=== PATIENT | female | born 1965 | race Caucasian/White ===

== ENCOUNTER 2021-01-11 15:42 | Inpatient (IN) | payer OTHER ==
[~2021-01-11] VITALS: Ht 162.6 cm; Wt 80.4 kg
--- OUTSIDE RECORDS SUMMARY | 2021-01-11 15:44 | XMS ---
PreManage Notification: DUSTIN BISHOP [employer] Events No recent Security Events currently on file CRITERIA MET - [facility] CARE PROVIDERS There are no care providers on record at this time. Wayne has no Care Guidelines for this patient. Mary VISIT COUNT (12 MO.) 1 HUSEYIN Ochoa TOTAL 1 NOTE: Visits indicate total known visits. ED/C VISIT TRACKING (12 MO.) 01/11/2021 15:43 HUSEYIN Mathews OR TYPE: Emergency COMPLAINT: - SOB,LOWER BACK PAIN INPATIENT VISIT TRACKING (12 MO.) No inpatient visits to display in this time frame [id number]
[2021-01-11] MEDS ORDERED: LISINOPRIL2.5 MG PO (16:01)
[2021-01-11] MEDS ORDERED: CYCLOBENZAPRINE10 MG PO (16:01)
[2021-01-11] MEDS ORDERED: HYDROCODON-ACE1 EA10 PO (16:02)
--- NOTE | 2021-01-11 20:14 | NUR ---
PT RATES PAIN 10/10. HOLDING ABDOMEN, GRIMACING, TEARFUL. 1 MG OF PRN IV DILAUDID GIVEN AT THIS TIME (SEE EMAR).
--- NOTE | 2021-01-11 20:20 | NUR ---
PATIENT RECEIVED INTO CCU. CARE ASSUMED BY THIS SN. PATIENT TRANSFERED ONTO CCU BED. PATIENT COMPLAINS OF 10/10 PAIN DURING TRANSFER. PATIENT HOOKED UP TO THE SERVOMECHANISM DESIGNER. HR REMAINS IN THE 110'S. OXYGEN SATURATION 96% ON 2 LITERS PER MINUTE. RESPIRATIONS 26, WITH SOME WORK OF BREATHING. PATIENT COMPLAINS OF ABDOMINAL PAIN WITH TOUCH. PATIENT GIVEN DILAUDID FOR PAIN. BLOOD PRESSURES HAVE BEEN SOFT AT 85/56. PATIENT REPORTS SOME RELIEF OF PAIN AFTER DILAUDID. SN WITH PATIENT AT THIS TIME FOR FURTHER ASSESSMENT.
--- NOTE | 2021-01-11 20:45 | NUR ---
DR MCCALLUM IN TO SEE PATIENT TO DISCUSS PLAN. PATIENT COMPLAINS OF 10/10 ABDOMINAL PAIN. PAIN MANAGEMENT DISCUSSED AND ALL QUESTIONS ANSWERED BY .
--- NOTE | 2021-01-11 21:15 | NUR ---
ATKINSON CATHETER INSERTED. 750 MLS OF CONCENTRATED URINE FOR IMMEDIATE RETURN. WELL TOLERATED BY PATIENT.
--- NOTE | 2021-01-11 21:30 | NUR ---
PT COMPLAINS PAIN LEVEL HAS INCREASED BACK TO 8/10. PAIN INCREASES WITH MOVEMENT, OR COUGHING. PRN PAIN MEDICATION GIVEN ( SEE EMAR). WILL CONTINUE TO CLOSELY MONITOR.
--- NOTE | 2021-01-11 22:00 | NUR ---
PATIENT HAS COMPLAINTS OF 9/10 PAIN. IV DILAUDID AND TORODOL GIVEN. ABX HUNG. PATIENT HR IN THE HIGH 90'S. RESPIRATIONS ARE EVEN AND UNLABORED, OXYGEN SATURATION 97% ON 2 LITERS VIA NASAL CANNULA. BLOOD PRESSURES REMAIN SOFT AT 86/57 BUT ARE NOT TRENDING DOWNWARD. PATIENT HAS NO OTHER COMPLAINTS AT THIS TIME. DAUGHTER AT BEDSIDE, CALL LIGHT IN PLACE.
--- NOTE | 2021-01-11 22:38 | NUR ---
Dr Pitt updated on pts condition. Discussed low blood pressures and improved pain control. No new orders at this time.
--- NOTE | 2021-01-11 23:24 | NUR ---
PATIENT HAS COMPLAITNS OF 9/10 PAIN. DILAUDID GIVEN. HR REMAINS IN THE 90'S. RESPIRATIONS ARE 13 AND EVEN. PATIENT HAS DECREASE IN WORK OF BREATHING. B/P 86/55. PATIENT HAS NO OTHER COMPLAINTS AT THIS TIME. DAUGHTER IN ROOM. CALL LIGHT IN PLACE.
--- NOTE | 2021-01-12 00:22 | NUR ---
DR COWART UPDATED ON PATIENTS BLOOD PRESSURES DECREASING, AND MAP LESS THAN 65. ORDERS RECIEVED (SEE EMAR). WILL CONTINUE TO MONITOR.
--- NOTE | 2021-01-12 00:31 | NUR ---
IN TO ASSESS PATIENTS BLOOD PRESSURE. MANUAL BP 78/48. MD NOTIFIED. 1L BOLUS STARTED. PATIENT STATES THAT PAIN IS BETTER AND SHE DOES NOT WANT PAIN MEDIACITON AT THIS TIME. HR IN THE 80'S. OXYGEN SATURATION 97% ON 2 LITERS. RESPIRATIONS 10-12. PATIENT HAS NO OTHER COMPLAINTS AT THIS TIME. DAUGHTER IN ROOM, CALL LIGHT IN PLACE.
--- NOTE | 2021-01-12 02:15 | NUR ---
IN TO CHECK ON PATIENT AND REPOSITION BLOOD PRESSURE CUFF. PATIENT DIAPHORETIC, GOWN AND BLANKETS CHANGED. HR REMAINS IN THE 80'S. RESPIRATIONS 12, OXYGEN SATURATION 96% ON 2 LITERS VIA NASAL CANNULA. B/P 96/63. PATIENT REPORTS PAIN AT 8.5/10. PATIENT REMAINS AFEBRILE. PATIENT HAS NO OTHER COMPLAINTS AT THIS TIME. DAUGHTER IN ROOM, CALL LIGHT IN PLACE.
--- NOTE | 2021-01-12 02:25 | NUR ---
PT HEART RATE UP TO 100 BPM, RESPIRATIONS 20-25 WITH REPOSITIONING IN THE BED. ABDOMINAL PAIN INCREASED WITH EXERTION AND TURNING WELL. PATIENT NOW RESTING COMFORTABLY. HEART RATE BACK DOWN AT 80 BPM, RR=13. WILL CONTINUE TO CLOSELY MONITOR.
--- NOTE | 2021-01-12 04:06 | NUR ---
PT BLOOD PRESSURE REMAINS IN THE 80S SYSTOLICALLY. MAP CONSISTENTLY BETWEEN 60-65. PATIENT REPORTS PAIN LEVELS ARE CONTROLLED. HEART RATE IN THE 80S AT REST. RR=16, BREATHING EVEN AND UNLABORED. DR COWART UPDATED. ORDERS RECEIVED.
--- NOTE | 2021-01-12 04:15 | NUR ---
PATIENT CALLED FOR ASSISTANCE TO THE COMMODE. PATIENT TRANSFERED WITH STAND BY ASSIST. WITH TRANSFER PATIENTS HR ELEVATED TO THE HIGH 90'S AND RESPIRTIONS INCREASED TO 22. PATIENT HAD 200ML LIQUID BM. PATIENT TRANSFERED BACK TO BED, DRAW SHEET AND PILLOW CASE CHANGED DUE TO MOISTURE. PATIENT REPOSITIONED IN BED. COMPLAINTS OF 10/10 PAIN AFTER TRANSFERING. DILAUDID GIVEN. HR IN THE 80'S WITH REST AND RESPIRATIONS AT 16. PATIENT OXYGEN SATURATION 92% ON ROOM AIR. PATIENT HAS NO OTHER COMPLAINTS AT THIS TIME. DAUGHTER IN ROOM, CALL LIGHT IN PLACE.
--- NOTE | 2021-01-12 05:51 | NUR ---
IN TO CHECK ON PATIENT. PATIENT REPORTS 10/10 ABDOMINAL PAIN. PAIN MEDICATION GIVEN. HR REMAINS IN THE 80'S. OXYGEN SATURATION 100% ON ROOM AIR. RESPIRATIONS 16. BP 88/61. PATIENT HAS NO OTHER COMPLAINTS AT THIS TIME.
--- NOTE | 2021-01-12 06:35 | NUR ---
IN TO ASSESS PATIENT. PATIENT STATES PAIN MEDICATION HELPED. PATIENT STATES THAT SHE HAS INCREASED PAIN IN HER LLQ. PATIENT TRANSFERED TO THE COMMODE. HR ELEVATED TO HIGH 90'S AND RESPIRATIONS ELEVATED TO 22. PATIENT HAD LIQUID BM. PATIENT TRANSFERED BACK TO THE BED AND REPOSITIONED WITH MINIMAL ASSISTANCE. PATIENT HAS NO OTHER COMPLAINTS AT THIS TIME. HR IN THE 80'S, RESPIRATIONS 16. CALL LIGHT IN PLACE.
--- NOTE | 2021-01-12 07:27 | NUR ---
DR. COWART IN ROOM TO SEE PATIENT. REPORT REC'D FROM CHECKER [employer]. PT STILL RATING HER PAIN 8.5/10.
--- NOTE | 2021-01-12 07:30 | NUR ---
Attempted to see Tia, she is very painful. Will return later.
--- NOTE | 2021-01-12 07:39 | NUR ---
PATIENT ASLEEP IN BED AT THIS TIME. WHITE BOARD UPDATED. CALL LIGHT WITHIN REACH NO FUTHER NEEDS AT THIS TIME.
--- NOTE | 2021-01-12 07:45 | NUR ---
REPORT REC'D FROM AUTO MECHANIC SUPERVISOR. PT WRITHING IN PAIN, RATING IT A 9/10 AND SEVERE. PATIENT HAS BEEN GETTING IV DILUADID, IV TYLENOL, AND IV TORADOL FOR PAIN CONTROL. PT'S ABDOMEN REMAINS SEVERELY DISTENDED, WITH VERY RARE BOWEL TONES. PT STATES THIS PAIN STARTED SUDDENLY IN THE MIDDLE OF THE NIGHT TUESDAY NIGHT, AND HAS BEEN PERSISTING SINCE. PT HAS HAD NO FURTHER VOMITING, BUT IS HAVING DIARRHEA. IVF CONTINUE AT 150 ML/HR. DR. COWART ENTERS AND NOW IN ROOM EVALUATING PATIENT. ATKINSON DRAINING CLEAR YELLOW URINE. PAIN MEDICAITON TO BE GIVEN.
--- NOTE | 2021-01-12 08:20 | NUR ---
KUB BEING TAKEN ON PATIENT.
--- NOTE | 2021-01-12 09:34 | NUR ---
DR. MCCALLUM IN ROOM TO SEE PATIENT. PATIENT STILL HAVING SEVERE ABDOMINAL PAIN. LAB RESULTS PENDING AND ABDOMINAL XRAY PENDING. PT'S DAUGHTER REMAINS IN ROOM WITH PATIENT. WILL CONTINUE TO MONITOR.
--- NOTE | 2021-01-12 10:12 | NUR ---
PATIENT SLEEPING AT THIS TIME AND APPEARS COMFORTABLE. LAST BP 89/72. HR IN THE 80s. PATIENT'S DAUGHTER REMAINS IN ROOM.
--- NOTE | 2021-01-12 10:45 | NUR ---
IN PATIENT'S ROOM TO CHECK ON HER PAIN. PT STATES SHE WAS GETTING SOME RELIEF FROM THE PAIN AND WAS EVEN DOWN TO A 3/10, BUT NOW PAIN IS STARTING UP AGAIN. PT RATES PAIN UP AT A 9/10. IV DILAUDID GIVEN. PAIN BRINGING PATIENT TO TEARS AND AGAIN WRITHING IN BED. ATTEMPTING TO COMFORT PATIENT AND HELP HER BREATH THROUGH THIS PAIN. CONTINUE TO MONITOR CLOSELY.
--- NOTE | 2021-01-12 13:10 | NUR ---
Spoke with Tia. She lives with her daughter Michael in a 2 story home. Uses the lower floor for laundry only. 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 Does not use any DME. Denies needs for DC. No financial issues. Cont with significant abd pain. Plan is for dc to home with daughter when cleared medically.
--- NOTE | 2021-01-12 14:18 | NUR ---
MELANIA BERGERON REQUESTED I NOT VISIT AT [facility] TIME. PT IS IN QUITE A BIT OF PAIN AT THE MOMENT. WILL CONTINUE TO FOLLOW
--- NOTE | 2021-01-12 15:36 | NUR ---
PATIENT GIVEN PRN DILAUDID, AND TORADOL FOR 9/10 PAIN. PATIENT ALSO STARTED ON HER MEROPENEM, WELL GIVEN HER SCHEDULED SOLUCORTEF. PT STATES THAT SHE FEELS THE PAIN MEDICATION IS STARTING TO CONTROL HER PAIN A LITTLE BETTER, AND HER PAIN IS BECOMING LOWER EACH TIME. PT'S DAUGHTER REMAINS IN ROOM. WHEN PATIENT HAS HER PAIN ATTACKS, IT REALLY ALMOST SEEMS TO TAKE HER BREATH AWAY. COACHED PATIENT THROUGH THESE DIFFICULT BREATHING TIMES. URINE OUTPUT HAS REMAINED ADEQUATE. SP02 REMAINS 95% OR GREATER ON ROOM AIR. PT USING IS. IVF CONTINUE AT 150 ML/HR. CONTINUE TO MONITOR.
--- NOTE | 2021-01-12 15:43 | NUR ---
PATIENT PM CARE DONE. PATIENT FACE WASHED. REFUSED SHOWER FOR THE DAY. CALL LIGHT WITHIN REACH NO FUTHER NEEDS AT THIS TIME.
--- NOTE | 2021-01-12 17:51 | NUR ---
PATIENT UP TO BSC AGAIN TO HAVE ANOTHER BM. PT MOVING A LITTLE BETTER THIS EVENING IT SEEMS. ABDOMEN STILL REMAINS DISTENDED. MORE ACTIVE BOWEL TONES HEARD THIS EVENING. CONTINUE TO MONITOR.
--- NOTE | 2021-01-12 18:45 | NUR ---
PATIENT GIVEN DILAUDID FOR 8/10 PAIN. PT'S PAIN COMES ON SO SUDDENLY AND SEVERELY. PT STILL FEELS SO DISTENDED AND BLOATED, AND STATES, "IT LITERALLY FEELS LIKE I'M GOING TO HAVE A BABY." PT'S DAUGHTER GONE FOR THE TIME, BUT PLAN ON RETURNING THIS EVENING. WILL CONTINUE TO MONITOR.
--- NOTE | 2021-01-12 19:31 | NUR ---
REPORT RECEIVED BY ABUNDIO. CARE ASSUMED BY SN AT THIS TIME. PATIENT RESTING IN BED. REPORTS PAIN AT 5.5/10, STATES SHE IS FEELING MUCH BETTER. HR IN THE 80'S, OXYGEN SATURATION 97% ON ROOM AIR. PATIENT TRANSFERED TO THE COMMODE WITH STAND BY ASSIST. HR ELEVATED TO HIGH 90'S WITH TRANSFER. PATIENT HAD BM WITH GAS. SN WITH PATIENT AT THIS TIME TO ASSIST WITH TRANSFER TO BED.
--- NOTE | 2021-01-12 20:30 | NUR ---
PATIENT REPORTS 7/10 PAIN. PAIN MEDICATION GIVEN. PATIENT HAS NO OTHER COMPLAINTS AT THIS TIME. DAUGHTER IN ROOM. CALL LIGHT IN PLACE.
--- NOTE | 2021-01-12 22:00 | NUR ---
IN TO CHECK ON PATIENT. PATIENT AMBULATING WITH RN TO BATHROOM. PATIENTS HR ELEVATED TO 100 WITH AMBULATION. RESPIRATORY RATE INCREASED TO 24. PATIENT HAD LIQUID BM. PATIENT AMBULATED BACK TO BED WITH MINIMAL ASSISTANCE. PATIENT REPOSITIONED IN BED. PATIENT STATES THAT PAIN MEDICINE HELPED BUT PAIN IS 8/10. PAIN MEDICATION GIVEN. PATIENT HAS NO OTHER COMPLAINTS AT THIS TIME. DAUGHTER IN ROOM. CALL LIGHT IN PLACE.
--- NOTE | 2021-01-12 23:00 | NUR ---
IN TO ASSIST PATIENT TO BATHROOM. PATIENT AMBULATED WITH MINIMAL ASSIST. PATIENTS HR ELEVATED TO 110'S WITH EXERTION AND RESPIRTIONS INCREASED TO 25. PATIENT HAD LIQUID BM. PATIENT REPOSITIONED IN BED, AND HAD COMPLAINTS OF 9/10 PAIN. PAIN MEDICATION GIVEN. WITH REST HR DECREASED TO THE 80'S.PATIENT HAS NO OTHER COMPLAINTS AT THIS TIME. DAUGHTER IN ROOM. CALL LIGHT IN PLACE.
--- NOTE | 2021-01-13 00:46 | NUR ---
PATIENT ASLEEP IN BED. HR IN THE 80'S, OXYGEN SATURATION 94% ON RA. PATIENT HAS NO COMPLAINTS AT THIS TIME. DAUGHTER IN ROOM. CALL LIGHT PRESENT.
--- NOTE | 2021-01-13 01:54 | NUR ---
PATIENT ASLEEP IN BED. HR IN THE 70'S. OXYGEN SATURTION 95% ON RA, RESPIRTIONS 8. PATIENT HAS NO COMPLAINTS AT THIS TIME. DAUGHTER IN ROOM. CALL LIGHT IN PLACE.
--- NOTE | 2021-01-13 03:50 | NUR ---
PATIENT ASLEEP IN BED. NO COMPLAINTS OF PAIN AT THIS TIME. HR IN THE 80'S, RESPIRTIONS 12, OXYGEN SATURATION 93% ON RA. DAUGHTER IN ROOM. CALL LIGHT IN PLACE.
--- NOTE | 2021-01-13 05:36 | NUR ---
IN TO ASSIST PATIENT TO THE COMMODE. PATIENT RATES PAIN AT 8/10. PATIENT ABLE TO TRANSFER WITH NO ASSISTANCE. HR ELEVATED TO THE 90'S WITH TRANSFER, RESPIRATIONS INCREASED. PATIENT HAD LIQUID BM. PATIENT DIAPHORETIC, LINENS CHANGED. PATIENT TRANSFERED TO BED AND REPOSITIONED. VITAL SIGNS OBTAINED. PATIENT HAS NO OTHER COMPLAITNS AT THIS TIME. DAUGHTER IN ROOM. CALL LIGHT IN PLACE.
--- NOTE | 2021-01-13 06:28 | NUR ---
IN TO ADMINISTER MEDICATION. PATIENT AWKAE AND MAKING CONVERSATION. HR IN THE 80'S, RESPIRATIONS 11. PATIENT HAS NO COMPLAINTS AT THIS TIME.
--- NOTE | 2021-01-13 08:38 | NUR ---
PATIENT AWAKE IN ROOM. PATIENT AMBULATED TO THE COMMODE. VITAL SIGNS AND I&O'S DOCUMENTED. CALL LIGHT WITHIN REACH NO FUTHER NEEDS AT THIS TIME.
--- NOTE | 2021-01-13 08:56 | NUR ---
IN PATIENT'S ROOM FOR PAIN MEDICATION. PT IS WRITHING IN PAIN, RATING IT A 10/10. PRN DILAUDID GIVEN WELL PRN TORADOL. PT STATES SHE SLEPT BETTER LAST NIGHT AND DID HAVE SOME RELIEF FROM PAIN. ONCE PAIN MEDICATIONS WERE STARTIG TO TAKE EFFECT, PATIENT ABLE TO COMMUNICATE A LITTLE BETTER. PT HARDLY ABLE TO EVEN TALK WHEN PAIN IS AT IT'S MAX. PT TEARFUL WITH THE PAIN. PT'S DAUGHTER REMAINS IN ROOM. PLAN IS FOR PATIENT TO HAVE A LOWER SCOPE TODAY. WILL CONTINUE TO MONITOR.
--- NOTE | 2021-01-13 09:30 | NUR ---
Pt awaiting colonosccopy. cont. with abd pain.
--- NOTE | 2021-01-13 10:08 | NUR ---
PATIENT WILL HAVE A LOWER SCOPE WITH DR. MCCALLUM TODAY, AND THIS WILL LIKELY HAPPEN AFTER 1400 TODAY. PT UPDATED ON THIS PLAN.
--- NOTE | 2021-01-13 10:57 | NUR ---
PATIENT SHOWERING. LINENS CHANGED. OUTBOARD TECHNICIAN IN ROOM AT THIS TIME. NO FUTHER NEEDS
--- NOTE | 2021-01-13 11:11 | NUR ---
PT ALERT, ORIENTED AND LAYING IN BED WATCHING TV. PT STATED SHE IS STILL IN PAIN, DID NOT SLEEP WELL. DID NOT WANT MICROBIOLOGY MANAGER TODAY. MAUREEN DIANE AND GENE WILL FOLLOW
--- NOTE | 2021-01-13 14:28 | NUR ---
PATIENT TAKEN DOWN FOR HER LOWER COLONOSCOPY WITH DR. MCCALLUM AT 1425. PT ABLE TO STAND AND TRANSFER TO BED. PT STILL HAS ATKINSON DRAINING GOOD AMOUNTS OF URINE. I/O COMPLETE. PT'S DAUGHTER ACCOMANIES HER DOWN TO DAY SURGERY. ROOM TIDIED FOR PATIENT'S RETURN.
--- NOTE | 2021-01-13 15:49 | NUR ---
01/13/21 1549 Azul Galo 1527-PATIENT ARRIVED BACK TO ROOM 126 FROM COLON[facility]OPY. MEETS CRITERIA AND HANDED OFF TO RUBIO CCU RN. PATIENT AWAKE REPOSITIONED SELF FROM STRETCHER TO BED. CHAU JEFFRIES GAVE REPORT TO RUBIO CCU RN. DAUGHTER AT BEDSIDE
--- NOTE | 2021-01-13 16:23 | NUR ---
PATIENT GIVEN IV VANCO AND IV MEROPENEM. PT WILL BE GIVEN PO FLAGYL AND VANCO WELL. PT'S DAUGHTER REMAINS IN ROOM WITH PATIENT. QUESTIONS BEING ANSWERED BEST POSSIBLE. CONTINUE TO MONITOR.
--- NOTE | 2021-01-13 19:30 | NUR ---
REPORT RECIEVED, CARE OF PATIENT ASSUMED AT THIS TIME. PT GIVEN BROTH AND APPLE SAUCE. NO COMPLAINTS OF NAUSEA OR INCREASED PAIN LEVELS. CALL LIGHT WITHIN REACH. DENIES NEEDS AT THIS TIME.
--- NOTE | 2021-01-13 21:10 | NUR ---
ASSESSMENT AND MEDICATION ADMINISTRATION COMPLETED. PT COMPLAINS OF 9/10 ABDOMINAL PAIN PRIMARILLY IN THE LEFT LOWER QUADRANT AT THIS TIME. PRN PAIN MEDICATION ADMINISTERED (SEE EMAR). ASSISTED PT WITH REPOSITIONING IN BED. PT HAD ACTIVE BOWEL TONES IN ALL FOUR QUADRANTS. FINE CRACKLES AUSCULTATED IN LEFT LOWER AIR FIELD THAT CLEARED WITH COUGH. ATKINSON CATHETER DRAINING LARGE AMOUNTS OF LIGHT YELLOW URINE. IV FLUIDS INFUSING. PT DAUGHTER AT BEDSIDE. PLAN OF CARE FOR EVENING DISCUSSED. CALL LIGHT WITHIN REACH. NO FURTHER NEEDS AT THIS TIME.
--- NOTE | 2021-01-13 22:24 | NUR ---
IV TYLENOL GIVEN AT REQUEST OF PRIMARY RN. SCDS PLACED. NO FURTHER REQUESTS AT THIS TIME. CALL LIGHT WITHIN REACH. DAUGHTER AT BEDSIDE.
--- NOTE | 2021-01-13 23:01 | NUR ---
IN TO CHECK ON PT, STATES PAIN HAS DECREASED TO 6/10. CALL LIGHT WITHIN REACH. DENIES FURTHER NEEDS AT THIS TIME.
--- NOTE | 2021-01-14 01:35 | NUR ---
Pt requesting pain medication at this time for 8/10 LLQ abdominal pain. Prn medication administered (see emar). Assessment complted. pt has active bowel tones in all four quadrants. pain upon gentle abdominal palpation. Abdomen appears less distended than previous assessment. IV fluids continue to infuse. call light within reach. daughter remains at bedside. no further needs at this time.
--- NOTE | 2021-01-14 04:14 | NUR ---
ASSESSMENT COMPLETED. PT GIVEN 1 MG IV PRN PAIN MEDICATION FOR 8/10 LLQ ABDOMINAL PAIN. IV ABX COMPLETED, IV FLUIDS CONTINUE TO INFUSE. ASSISTED PT WITH REPOSITIONING IN BED. CALL LIGHT WITHIN REACH. NO FURTHER NEEDS AT THIS TIME.
--- NOTE | 2021-01-14 05:04 | NUR ---
ASSESSMENT COMPLETED. PT DROWSY BUT AWAKENS TO VOICE AND TOUCH. ASSISTED WITH REPOSITIONING IN BED FOR PATIENT COMFORT. CALL LGIHT WTIHN REACH. DENIES FURTHER NEEDS AT THIS TIME.
--- NOTE | 2021-01-14 09:05 | NUR ---
THIS RN IN TO ASSESS PT AND ADMINISTER SCHEDULED MEDICATIONS. PT IN PAIN AT THIS TIME AND STATED SHE WAS HAVING 10/10 ABDOMINAL PAIN IN HER LEFT SIDE. PRN IV TYLENOL ADMINISTERED AT THIS TIME ALONG WITH SCHEDULED MEDICATION. PT UP TO HAVE A BM AT THIS TIME AND WAS ABLE TO GET UP TO THE BSC AND HAVE A LIQUID BM AND GET BACK INTO BED. DR. COWART IN TO ASSESS PT AND UPDATE ON POC AFTERWARDS. PT STATED SHE STILL HAD ABD PAIN 9/10 AFTER THE IV TYLENOL, PRN DILAUDID ADMINISTERED AT THIS TIME WELL. PT ASSESSED AFTERWARDS. ABDOMEN IS MILDLY DISTENDED, HAS ACTIVE BOWEL TONES, AND IS TENDER ON THE LOWER LEFT ABDOMEN. LUNGS ARE CLEAR, PULSES ARE STRONG. DR. MCCALLUM IN AFTER ASSESSMENT TO ASSESS PT AND UPDATE ON PLAN OF CARE WELL. PT NOW LAYING IN BED, SCD'S IN PLACE, CALL LIGHT IN REACH, BED IN LOWEST POSITION, CLEAR LIQUID TRAY AT BEDSIDE, WILL CONTINUE PLAN OF CARE.
--- NOTE | 2021-01-14 09:37 | NUR ---
THIS RN IN TO CHECK ON PT. PT LAYING IN BED ALERT AND ORIENTED, PT GIVEN A CLEAR ENSURE AT THIS TIME. PT STILL IN PAIN BUT DENIES THE NEED FOR PAIN MEDICATION AT THIS TIME. PT REPORTS NO FURTHER NEEDS AT THIS TIME, MELANIA SANTAMARIA IN TO CHECK ON PT. WILL CONTINUE PLAN OF CARE. CALL LIGHT IN REACH, BED IN LOWEST POSITION.
--- NOTE | 2021-01-14 10:10 | NUR ---
RESPONDED TO PT CALL LIGHT PT STATED SHE WAS IN 10/10 ABDOMINAL PAIN. PRN KETOROLAC AND DILAUDID ADMINISTERED AT THIS TIME (SEE MAR). PT THEN UP TO BSC TO HAVE A LIQUID BM AND THEN ABLE TO GET BACK INTO BED. PT NOW LAYING IN BED AND REPORTS NO FURTHER NEEDS. CALL LIGHT IN REACH, BED IN LOWEST POSITION, WILL CONTINUE PLAN OF CARE.
--- NOTE | 2021-01-14 10:43 | NUR ---
THIS RN IN TO CHECK ON PT. PT LAYING IN BED ALERT AND ORIENTED. PT REPORTS THAT HER PAIN HAS SUBSIDED AND DENIES THE NEED FOR PAIN MEDICATION AT THIS TIME. PT REPORTS NO FURTHER NEEDS AT THIS TIME, WILL CONTINUE PLAN OF CARE. CALL LIGHT IN REACH, BED IN LOWEST POSITION.
--- NOTE | 2021-01-14 11:31 | NUR ---
THIS RN IN TO ASSESS PT, PT LAYING IN BED ALERT AND ORIENTED. PT REPORTED 8/10 ABDOMINAL PAIN AT THIS TIME AND REQUESTED PRN MEDICATION. PRN DILAUDID ADMINISTERED AT THIS TIME. PT THEN PUT BACK ON ORDERED IVF. PT REPORTS NO FURTHER NEEDS AT THIS TIME, DAUGHTER IN ROOM AT BEDSIDE, WILL CONTINUE PLAN OF CARE. CALL LIGHT IN REACH, BED IN LOWEST POSITION, IVF INFUSING, SCDS ON.
--- NOTE | 2021-01-14 12:05 | NUR ---
NEW IV INSERTED BY MARINE STEAM FITTER ANTONELLA. THIS RN AND MELANIA SANTAMARIA ATTEMPTED 2X EACH PRIOR. PT NOW HAS A NEW IV 20G IN L FOREARM, IV FLUSHES EASILY AND IS CURRENTLY SALINE LOCKED. WILL CONTINUE PLAN OF CARE.
--- NOTE | 2021-01-14 12:39 | NUR ---
THIS RN IN TO ASSESS PT. PT SITTING UP AT BEDSIDE WITH DAUGHTER AND STATED SHE NEEDED TO HAVE A BM. BSC BROUGHT TO PT, PT ABLE TO GET UP AND HAVE A SMALL LIQUID BM. PT NOW BACK IN BED LAYING DOWN. PT STATED SHE WAS STARTED TO HAVE AN INC IN ABDOMINAL PAIN AT THIS TIME, PRN DILAUDID ADMINISTERED. PT ASSESSED AT THIS TIME, PT ABDOMEN DISTENDED, PAIN MOSTLY IN THE LEFT SIDE AND IS TENDER, ACTIVE TONES PRESENT. PT REPORTS NO FURTHER NEEDS AT THIS TIME, DAUGHTER AT BEDSIDE, IVF INFUSING, SCDS BACK IN PLACE, CALL LIGHT IN REACH, BED IN LOWEST POSITION, WILL CONTINUE PLAN OF CARE.
--- NOTE | 2021-01-14 13:11 | NUR ---
THIS RN IN TO ASSESS PT AND ADMINISTER SCHEDULED MEDICATION. PT LAYING IN BED AT THIS TIME AND HAD FINISHED USING THE BSC. PT ALERT AND ORIENTED IN BED. SCHEDULED MEDICATION ADMINISTERED, CLEAR LIQUID TRAY WITH A CLEAR ENSURE BROUGHT TO PT. PT THEN STATED SHE WAS STARTING TO HAVE AN INCREASE IN ABDOMINAL PAIN 04/07 AND REQUESTED PRN PAIN MEDICATION, PRN DILAUDID ADMINISTERED AT THIS TIME. PT REPORTS NO FURTHER NEEDS AT THIS TIME, WILL CONTINUE PLAN OF CARE. CALL LIGHT IN REACH, BED IN LOWEST POSITION, IVF INFUSING, SCDS IN PLACE.
--- NOTE | 2021-01-14 14:31 | NUR ---
THIS RN IN TO ADMINISTER SCHEDULED MEDICATION. PT LAYING IN BED AWAKE AND ALERT. IV ABX STARTED, ALONG WITH PRN DILAUDID FOR 8/10 ABDOMINAL PAIN THAT PT STATED WAS STARTING TO INCREASE. PT REPORTS NO FURTHER NEEDS AT THIS TIME, PT WAS ABLE TO FINISH THE MAJORITY OF HER CLEAR LIQUID TRAY. WILL CONTINUE PLAN OF CARE, CALL LIGHT IN REACH, BED IN LOWEST POSITION, IVF INFUSING, IV ABX INFUSING, SCDS ON.
--- NOTE | 2021-01-14 17:26 | NUR ---
THIS RN IN TO ASSESS PT AND ADMINISTER SCHEDULED MEDICATION. PT AWOKE AT THIS TIME AND COMPLAINED OF 9/10 ABDOMINAL PAIN. PRN DILAUDID ADMINISTERED FOLLOWED BY PRN IV TYLENOL PAIN WOULD NOT SUBSIDE, SCHEDULED PO ABX ADMINISTERED AT THIS TIME WELL. PT THEN USED THE [facility] TO HAVE A SMALL SEMI LIQUID BM. PT NOW BACK IN BED, IV TYLENOL INFUSING, IV ABX INFUSING, IV VANCOMYCIN COMPLETE. ASSESSMENT COMPLETED AT THIS TIME, ABDOMEN STILL DISTENDED AND TENDER WITH GUARDING TO THE LEFT SIDE. PT STATES IT IS PAINFUL MOSTLY IN THE LEFT LOWER QUADRANT. PULSES STRONG, ACTIVE CED TONES PRESENT, LUNGS CLEAR EXCEPT FOR THE LEFT LOWER QUADRANT IN WHICH FINE CRACKLES WERE HEARD. PT REMINDED TO USE I.S WHICH SHE STATES SHE HAS BEEN. PT REPORTS NO FURTHER NEEDS AT THIS TIME AND IS LAYING IN BED IV TYLENOL AND IV ABX INFUSING, WILL CONTINUE PLAN OF CARE. CALL LIGHT IN REACH, BED IN LOWEST POSITION, SCDS IN PLACE.
--- NOTE | 2021-01-14 17:40 | PATH ---
[facility] [address], [place] [address] Signed SPECIMEN(S): A SPLENIC FLEXURE SPECIMEN(S): B RECTUM SPECIMEN SOURCE: A. SPLENIC FLEXURE B. RECTUM CLINICAL HISTORY: Nausea and vomiting, diarrhea, sepsis. Post: Pseudomembranous colitis. MICROSCOPIC DESCRIPTION: Histologic sections of all submitted blocks are examined by light microscopy. These findings, together with the gross examination, support the pathologic diagnosis. FINAL PATHOLOGIC DIAGNOSIS: A. Colon, splenic flexure, biopsy: - Fragments of partially necrotic colonic mucosa with fibrinopurulent exudate. - Negative for dysplasia or malignancy. - See comment. B. Rectum, biopsy: - Fragments of colorectal mucosa with no histopathologic abnormality. - Negative for active, chronic, or microscopic colitis. - Negative for dysplasia or malignancy. COMMENT: Regarding specimen A: The history of pseudomembranous colitis is noted. The minute remaining viable colonic mucosa that is present does not show evidence of lamina propria hyalinization. The findings are compatible with pseudomembranous colitis secondary to infection, however, though less favored, ischemic colitis cannot be entirely excluded. Clinical correlation required. As part of [employer]' Quality Improvement Program, this case was reviewed by another member of our pathology staff. NAL:NRT:cml:C2NR GROSS DESCRIPTION: Two specimens are received in two containers, labeled "TG." A. The specimen, labeled "TG, splenic flexure biopsy," is received in formalin and consists of four melgoza soft tissue fragments that measure 0.1-0.2 cm in greatest dimension. The specimen is entirely submitted in cassette (A1). PATIENT NAME: DUSTIN BISHOP PATHOLOGY DATE OF : 67 REPORT #: [id number] PHYSICIAN: GIORGI RAMIREZ PCP: JOY FLOYD MD REPORT IS CONFIDENTIAL AND NOT TO BE RELEASED WITHOUT AUTHORIZATION [facility] [address] [address] Signed B. The specimen, labeled "TG, rectum biopsy," is received in formalin and consists of three melgoza soft tissue fragments that measure 0.1-0.2 cm in greatest dimension. The specimen is entirely submitted in cassette (B1). JS (under the direct supervision of a pathologist) The Gross Description was prepared using a voice recognition system. The report was reviewed for accuracy; however, sound-alike word errors, addition and/or deletions may occur. If there is any question about this report, please contact Client Services. PERFORMING LABORATORY: The technical component was performed by [facility] [address] (Linotype Operator: Meghan Pringle MD; CLIA# [id number]). Professional interpretation was performed by [facility], [address] [address] (CLIA# [id number]). Diagnostician: Ewelina Peterson MD Pathologist Electronically Signed 01/14/2021 Copies: ~ PATIENT NAME: DUSTIN BISHOP PATHOLOGY DATE OF : 67 REPORT #: [id number] PHYSICIAN: GIORGI RAMIREZ PCP: JOY FLOYD MD REPORT IS CONFIDENTIAL AND NOT TO BE RELEASED WITHOUT AUTHORIZATION
--- NOTE | 2021-01-14 18:12 | NUR ---
PT AWAKE AND ALERT IN BED EATING CLEAR LIQUID TRAY. PT REPORTS STILL HAVING 8/10 ABDOMINAL PAIN, PRN DILAUDID ADMINISTERED AT THIS TIME. PT REPORTS NO FURTHER NEEDS AND IS LAYING IN BED AWAKE AND ALERT. IVF INFUSING ORDERED, SCD'S IN PLACE, ATKINSON DRAINING, WILL CONTINUE PLAN OF CARE.
--- NOTE | 2021-01-14 19:45 | NUR ---
SHIFT REPORT RECEIVED FROM MELANIA BLANCHARD. PT REQUESTING PAIN MEDIATION FOR 8/10 LEFT-SIDED ABDOMINAL PAIN, 1MG IV DILAUDID GIVEN AT THIS TIME. PT DENIES FURTHER COMPLAINTS OR REQUESTS AT THIS TIME. DAUGHTER REMAINS AT BEDSIDE.
--- NOTE | 2021-01-14 20:30 | NUR ---
ASSESSMENT COMPLETED-SEE DOCUMENTATION. 1MG IV DILAUDID GIVEN FOR 8/10 ABDOMINAL PAIN. PT UP TO BSC FOR LIQUID BM, PT REPORTS INCREASED PAIN WITH ACTIVITY. IV SITES INTACT, DRESSING TO RIGHT ARM IV CHANGED. ATKINSON PATENT, DRAINING PALE YELLOW URINE. NO FURTHER REQUESTS AT THIS TIME, CALL LIGHT WITHIN REACH AND DAUGHTER AT BEDSIDE.
--- NOTE | 2021-01-14 21:15 | NUR ---
PT AGAIN UP TO BSC FOR LIQUID BM. PAIN 05/08, 1MG IV DILAUDID GIVEN. SCHEDULED MEDS GIVEN PER EMAR.
--- NOTE | 2021-01-14 22:15 | NUR ---
1MG IV DILAUDID GIVEN FOR 8/10 LEFT SIDED ABDOMINAL PAIN. FRESH ICE WATER PROVIDED.
--- NOTE | 2021-01-14 23:25 | NUR ---
PT REPORTING 8/10 LEFT SIDED ABDOMINAL PAIN. 1MG IV DILAUDID AND IV OFIRMEV GIVEN. PT UP TO BSC FOR LIQUID BM. FRESH ICE WATER PROVIDED.
--- NOTE | 2021-01-14 23:52 | NUR ---
ASSESSMENT COMPLETED AND UNCHANGED. PT PROVIDED WITH FRESH ICE WATER. SCD'S REMOVED PER PT REQUEST.
--- NOTE | 2021-01-15 00:21 | NUR ---
PT GIVEN 1MG IV DILAUDID FOR 8/10 ABDOMINAL PAIN. DENIES FURTHER REQUESTS AT THIS TIME.
--- NOTE | 2021-01-15 01:30 | NUR ---
1MG IV DILAUDID GIVEN FOR 8/10 LLQ PAIN. PT DENIES FURTHER NEEDS.
--- NOTE | 2021-01-15 02:15 | NUR ---
PT CALLED NEEDING TO USE BATHROOM AND BSC WAS SLIGHTLY TOO FAR AWAY. PT HAD LARGE SOFT/LIQUID BM. PRN TORADOL AND 1MG IV DILAUDID GIVEN FOR 8/10 LLQ PAIN. PT BACK IN BED, FRESH ICE WATER PROVIDED. BSC AND CALL LIGHT WITHIN REACH.
--- NOTE | 2021-01-15 03:15 | NUR ---
IN TO REASSESS PAIN, PT APPEARS TO BE SLEEPING AT THIS TIME. RESPIRATIONS EVEN AND UNLABORED, RR:10, HR:83. WILL ALLOW FOR REST AND CONTINUE TO MONITOR.
--- NOTE | 2021-01-15 04:29 | NUR ---
PT CONTINUES TO SLEEP AT THIS TIME, NO APPARENT DISTRESS, RESPIRATIONS EVEN AND UNLABORED. HR:86, RR:10.
--- NOTE | 2021-01-15 05:30 | NUR ---
PT WOKEN UP BY THREAD WEAVER FOR MORNING LAB DRAW. ASSESSMENT COMPLETED, UNCHANGED. PT REPORTS 9/10 LLQ PAIN, 1MG IV DILAUDID AND PRN OFIRMEV GIVEN. IV SITES REMAIN INTACT/INFUSING WNL. DEMETRIO PATENT. FRESH ICE WATER PROVIDED PER REQUEST. PT GIVEN ICEPACK PER REQUEST FOR BEHIND NECK. PT DENIES FURTHER REQUESTS AT THIS TIME.
--- NOTE | 2021-01-15 06:05 | NUR ---
PT CONTINUES TO REPORT 9/10 PAIN, 1MG IV DILAUDID GIVEN. PT UP TO BSC TO HAVE BM.
--- NOTE | 2021-01-15 06:46 | NUR ---
PT REPORTS PAIN IS 8/10, 1MG IV DILAUDID GIVEN AT THIS TIME.
--- NOTE | 2021-01-15 06:56 | NUR ---
NOTIFIED DR. COWART OF PT'S LARGE URINE OUTPUT THROUGHOUT THE NIGHT. AWARE AND HAS REVIEWED LAB RESULTS.
--- NOTE | 2021-01-15 07:15 | NUR ---
Update from RN. No change at this time.
--- NOTE | 2021-01-15 07:30 | NUR ---
PATIENT SHIFT REPORT RECIEVED FROM PUBLIC HEALTH CLINICAL NURSE SPECIALIST RN. PATIENT SLEEPING IN BED WITH HER DAUGHTER AT THE BEDSIDE. WILL CONTINUE TO CLOSELY MONITOR.
--- NOTE | 2021-01-15 08:23 | NUR ---
PATIENT CALLED AND REQUESTED PRN PAIN MEDICATIONS FOR PAIN 06/07. PATIENT GRUNTING AND CRYING AT TIMES. 1MG PRN GIVEN PER ORDERS. PATIENT AND HER DAUGHTER DENY ANY OTHER NEEDS AT THIS TIME. WILL CONTINUE TO CLOSELY MONITOR.
--- NOTE | 2021-01-15 11:09 | NUR ---
PATIENT REQUESTING PRN PAIN MEDICATION APPROX EVERY HOUR. PAIN MEDICATION ONLY GIVES PAIN RELIEF OF ABOUT 8/10 FROM 10/10. SPOKE WITH MD ABOUT PAIN REGIMEN. MD COWART WILL REVIEW WITH MD MCCALLUM AND SEE IF THERE IS A BETTER PLAN FOR PAIN CONTROL. PATIENTS COMPLAINT IS LEFT LOWER QUAD PAIN. PATIENT ALSO STATES SHE NORMALLY TAKES 10/325 NORCO 6 TABS A DAY AT HOME BASELINE FOR CHRONIC PAIN. NO OTHER NEEDS AT THIS TIME. WILL CONTINUE TO CLOSELY MONITOR.
--- NOTE | 2021-01-15 13:44 | NUR ---
MELANIA VARGAS STATED THAT PT IS STILL IN INTENSE PAIN, AND PL CONTRAL SO AT A PFEVIODV
--- NOTE | 2021-01-15 14:00 | NUR ---
PATIENT BACK FROM CT WITH THE TESTING SHAKING SHIPPING. PATIENT HAVING INCREASED PAIN. WILL GET PARTS EXPEDITER GOING FOR BETTER PAIN CONTROL. WILL CONTINUE TO CLOSELY MONITOR.
--- NOTE | 2021-01-15 14:15 | NUR ---
ALFONSON DILUDID GIVEN D/T FORM SETTER HELPER NOT BEING READY YET AT THIS TIME. CALLED PHARMACY AND STAFF HAVE TO THEM MIX MEDICATION. PATIENTS PAIN IS 10/10 PER PATIENT. PATIENT GRUNTING AND CRYING.
--- NOTE | 2021-01-15 15:10 | NUR ---
MORPHINE CARTOGRAPHY PROFESSOR SET UP PER MD ORDERS. SECOND RN VERIFICATION BY NAYELY VELÁZQUEZ.
--- NOTE | 2021-01-15 15:30 | NUR ---
LAUREN RN IN TO START IV WITH ULTRASOUND. IV IN THE RIGHT AC DCD AT THIS TIME. PATIENT TOLERATED WELL. PATIENT HAS METAL FABRICATOR HELPER GOING AT THIS TIME AND WILL START ABX IN NEW IV SITE. PATIENTS DAUGHTER AND PATIENT UPDATED ON PLAN OF CARE. NO OTHER NEEDS AT THIS TIME. WILL CONTINUE TO CLOSELY MONTIOR.
--- NOTE | 2021-01-15 16:45 | NUR ---
PATIENT UP TO THE SHOWER. IV SITES COVERED. PATIENTS DAUGHTER HELPING HER IN THE SHOWER. PATIENT IS STABLE ON HER FEET AND VITALS STABLE. PATIENT FEELS WORKFORCE DEVELOPMENT SPECIALIST IS HELPING CONTROL HER PAIN BETTER. WILL CONTINUE TO CLOSELY MONTIOR.
--- NOTE | 2021-01-15 18:00 | NUR ---
PATIENTS BEDDING ALL CHANGED WHILE PATIENT WAS IN THE SHOWER. PATIENT TOELRATED THE SHOWER WELL AND NOW BACK TO BED. PATIENT FEELS HYDROLOGIC ENGINEER IS HELP-ING HER PAIN CONTROL. SPOKE WITH MD COWART THIS AFTERNOON ABOUT FLUID STATUS. PER MD MAY HOLD IV FLUIDS D/T HIGH URINE OUTPUT AND PATIENT IS DRINKING A LOT OF FLUID. UPDATED THAT COOKIETENT STATES SHE HAS DRY MOUTH AND FEELS VERY THIRTY. WILL CONTINUE TO CLOSELY MONITOR. PATIENT ALSO NOTED TO HAVE MOTTLEING AROUND THE KNEE CAPS AFTER SHOWER. PATIENTS VITALS STABLE. NO NEW ORDERS AT THIS TIME. WILL CONTINUE TO CLOSELY MONITOR.
--- NOTE | 2021-01-15 20:30 | NUR ---
SHIFT REPORT RECEIVED FROM MELANIA SHORE. ASSESSMENT COMPLETED AT THIS TIME. PT IS ALERT/ORIENTED, REPORTS THAT SHE HAD JUST GOTTEN UP TO BSC SO PAIN IS CURRENTLY 8/10, PRN TORADOL GIVEN AND MORPHINE MANAGER FLIGHT OPERATIONS REMAINS IN USE. LUNGS CLEAR, SLIGHTLY DIM IN BASES, RA. HR REGULAR. BOWEL TONES ACTIVE, ABDOMEN DISTENDED AND TENDER, DENIES NAUSEA. SKIN GROSSLY INTACT. IV SITES INTACT AND FLUSH EASILY, BOTH HAVE BLOOD RETURN PRESENT. DEMETRIO PATENT, PT ABLE TO PROVIDE OWN CATH CARE, UO QS. MEDIUM SOFT/SEMI-LIQUID STOOL EMPTIED FROM BSC. PT DENIES FURTHER REQUESTS AT THIS TIME, CALL LIGHT AND BELONGINGS WITHIN REACH.
--- NOTE | 2021-01-15 20:48 | NUR ---
HEALTH CARE ADMINISTRATOR VIAL REPLACED, SETTINGS UNCHANGED, VERIFIED WITH MELANIA RYAN.
--- NOTE | 2021-01-15 21:49 | NUR ---
PT UP TO BSC FOR SMALL SEMI-LIQUID BM. PAIN CURRENTLY 03/07, 1 TAB PERCOCET GIVEN. PT DENIES FURTHER REQUESTS, EARPLUGS AND EYE MASK PROVIDED TO AIDE IN SLEEP. PT DENIES FURTHER REQUESTS, CALL LIGHT WITHIN REACH.
--- NOTE | 2021-01-15 23:48 | NUR ---
PT CALLED BECAUSE IV PUMP WAS ALARMING. ASSESSMENT COMPLETED. PT CURRENTLY RATES PAIN 3/10 AND TOLERABLE, MORPHINE RAILROAD CROSSING PROTECTION MAINTAINER REMAINS IN USE. REMAINDER OF ASSESSMENT UNCHANGED. FRESH ICE WATER PROVIDED. CALL LIGHT WITHIN REACH.
--- NOTE | 2021-01-16 01:37 | NUR ---
PT CALLED BECAUSE IV PUMP WAS ALARMING, MERREM INFUSION COMPLETED, IV SALINE LOCKED. NEW POLICE LIEUTENANT VIAL STARTED, SETTINGS UNCHANGED, VERIFIED WITH MELANIA MILLER. PT CURRENTLY RATES PAIN 7/10, BUT REPORTS POLICE LIEUTENANT IS WORKING WELL FOR PAIN CONTROL.
--- NOTE | 2021-01-16 03:00 | NUR ---
PT APPEARS TO BE SLEEPING AT THIS TIME. RR:11, HR:97, SPO2:94% ON RA.
--- NOTE | 2021-01-16 04:15 | NUR ---
PT JUST GOT BACK INTO BED AFTER GETTING UP TO BSC TO HAVE BM. PT REPORTS INCREASED PAIN, 04/07. MORPHINE FOOD AND NUTRITION PROFESSOR REMAINS IN USE, PRN TORADOL GIVEN. REMAINDER OF ASSESSMENT UNCHANGED. FRESH ICE WATER PROVIDED PER REQUEST. DENIES FURTHER NEEDS, CALL LIGHT WITHIN REACH.
--- NOTE | 2021-01-16 08:01 | NUR ---
AM medications given. Takes without difficulty. Assessment completed. Dr. Gloria in to see patient.
--- NOTE | 2021-01-16 08:58 | NUR ---
Lying in bed, denies pain at this time. Family member at bedside. Denies other needs. Call light in reach, bed rails up X2.
--- NOTE | 2021-01-16 09:40 | NUR ---
PATIENT APPEARS SLEEPING. STAFF STATES NO CHANGES IN PLAN FOR DISCHARGE HOME AT THIS TIME.
--- NOTE | 2021-01-16 10:23 | NUR ---
Sitting up in bed. Alert and oriented. Just returned to bed from commode. Denies needs at this time. Call light in reach. Bed rails up X2.
--- NOTE | 2021-01-16 11:07 | NUR ---
States pain is starting to lessen after use of PUBLIC HEALTH ENGINEER. Echols catheter bag emptied. Denies other needs at this time. Call light in reach, bed rails up X2.
--- NOTE | 2021-01-16 11:59 | NUR ---
DR MCCALLUM HAD JUST VISITED PT, SHE IS ALERT, ORIENTED AND FEELING SOMEWHAT BETTER. GAVE ENCOURAGEMENT, WILL FOLLOW
--- NOTE | 2021-01-16 12:00 | NUR ---
States pain has improved. Scheduled medications administered as prescribed. Takes without difficulty. Denies other needs. Call light in reach, bed rails up X2.
--- NOTE | 2021-01-16 12:50 | NUR ---
Report given to Maria Elena Aguirre RN. Patient transported from room 126 to room 109 in bed.
--- NOTE | 2021-01-16 12:50 | NUR ---
PT JUST ARRIVED FROM CCU ON FLOOR. PT AAOX4, PT IN PAIN 9/10, SUPERVISOR FILES ACITVE. WILL CONTINUE TO MONITOR.
--- NOTE | 2021-01-16 14:00 | NUR ---
ABD DISTENDED, SOFT, FIRM AND TENDER TO TOUCH. NO PERIPH. EDEMA NOTED. V/S WDL. URINE OUTPUT IS GREAT. WILL CONTINUE TO MONITOR.
--- NOTE | 2021-01-16 16:00 | NUR ---
PT IN ROOM. NO NEW CONCERNS NOTED AT THIS TIME.
--- NOTE | 2021-01-16 17:52 | NUR ---
PT ARRIVED ON FLOOR AT 1250. ABD PAIN PRESENT, ABD SOUNDS PRESENT, V/S WDL SO FAR. URINE OUTPUT WDL, PT HAD BM'S X2 SO FAR. DOUBLE END SEWER MORPHINE STILL IN USE. NO NEW CONCERNS WERE NOTED SINCE ARRIVAL TO CT SO FAR.
--- NOTE | 2021-01-16 19:00 | NUR ---
REPORT RECEIVED FROM OFFGOING RN. PT RESTING IN BED. DENIES NEEDS CALL LIGHT IN REACH.
--- NOTE | 2021-01-16 22:15 | NUR ---
PT ASSESSMENT COMPLETE. PT RATES PAIN 7-8/10. PT MOANING AUDIBLY THROUGHOUT ASSESSMENT, HOLDS HER ABD. ENCOURAGED PT TO USE HER REGULATORY COORDINATOR BUTTON FOR PAIN. PT STATES "I DID, I JUST WAITED TOO LONG." SHE STATES THAT IT USUALLY TAKES A MINUTE TO CATCH UP. LUNG SOUNDS DIM IN BILATERAL BASES, OCCASIONAL COUGH NOTED DURING ASSESSMENT. PT DENIES SOB. BT'S ACTIVE. ABD TENDER TO PALPATION, ESPECIALLY L SIDED. ATKINSON CATH DRAINING COPIOUS AMOUNTS OF DILUTE YELLOW URINE. SMALL BM PRESENT IN BSC. IV FLUSHED X 2, WNL. FRESH ICE WATER PROVIDED. PT DENIES FURTHER NEEDS AT THIS TIME. CALL LIGHT IN REACH.
--- NOTE | 2021-01-17 00:22 | NUR ---
SENIOR NETWORK SECURITY ARCHITECT TO ROOM FOR FIRST LINE SUPERVISOR ALARMING. PT RESTING IN BED WITH EYE MASK OVER EYES. RESPIRATIONS EVEN AND UNLABORED. PT WAKES WHILE 2 RN'S AT BEDSIDE FOR FIRST LINE SUPERVISOR VIAL REPLACEMENT. RATES PAIN 03/07. PT DENIES FURTHER NEEDS AT THIS TIME. CALL LIGHT IN REACH.
--- NOTE | 2021-01-17 04:06 | NUR ---
PT RESTING IN BED WITH EYES CLOSED. RESPIRATIONS EVEN AND UNLABORED. PT APPEARS TO BE SLEEPING. CALL LIGHT IN REACH.
--- NOTE | 2021-01-17 04:51 | NUR ---
PT ASSESSMENT COMPLETE. PT RESTING IN BED WITH EYES CLOSED. WAKES EASILY TO TOUCH WHILE STAFF PHYSICAL THERAPIST AT BEDSIDE. PT RATES PAIN 7.5/10 UPON WAKING. DENIES SOB OR NAUSEA. LUNG SOUNDS CLEAR THROUGHOUT. BT'S ACTIVE THROUGHOUT. ABD CONTINUES TO BE TENDER TO PALPATION WITH MODERATE DISTENSION NOTED. ATKINSON CATH CONTINUES TO DRAIN COPIOUS AMOUNTS OF DILUTE YELLOW URINE. FRESH ICE PROVIDED. PT DENIES FURTHER NEEDS AT THIS TIME. CALL LIGHT IN REACH.
--- NOTE | 2021-01-17 07:30 | NUR ---
THIS RN RECEIVED REPORT FROM JAX VELÁZQUEZ. THIS RN TO ASSUME CARE OF PATIENT WITH [facility]. PT SITTIN UP IN BED AND STATES THAT HER PAIN IS WORSE CURRENLY DUE TO MOVEMENT, PT TO REST AND RELAX TO ASSIST PAIN AND LET PAIN MEDS KICK IN
--- NOTE | 2021-01-17 08:40 | NUR ---
THIS RN IN PTS ROOM TO CO-SIGN PTS MEDS THAT [facility] PASSED TO PT.
--- NOTE | 2021-01-17 11:03 | NUR ---
PT LAYING IN BED. PT COMPLAINING OF PAIN. PRN PAIN MED GIVEN, EDUCATED PT ON TRYING TO EASE OFF OF PRETZEL PACKER PUMP AND TRANSITION TO ORAL. PT STATES SHE IS ABLE TO AMBULATE TO THE BEDSIDE CAMMODE AND EXPERIENCES FATIGUE BUT RECOVERS WELL AND PT STATES IT IS TOLERABLE. PT HAS PLANS TO SHOWER WITH DAUGHTERS ASSISTANCE ONCE PAIN MEDS START GOING TO EFFECT. DAUGHTER IN RECLINER. CALL LIGHT WITHIN REACH.
--- NOTE | 2021-01-17 12:30 | NUR ---
THIS RN IN PTS ROOM TO ASSITST PT TO GET IN SHOWER. PTS DAUGHTER TO ASSIST PT IN THE SHOWER
--- NOTE | 2021-01-17 13:10 | NUR ---
PT IS BACK TO BED FROM SHOWER, PT IS REPORTING SEVERE PAIN RATE 9/10. PT PLACED BACK ON ELECTRONICS LEAD PUMP. PT RESTING IN BED.
--- NOTE | 2021-01-17 14:15 | NUR ---
THIS RN IN PTS ROOMT TO GIVE PT MEDS. PT BACK TO BED AFTER SHOWER MIDDAY TODAY. PT STATES THAT SHE FEELS BETTER AT THIS TIME. THIS RN NOTED THAT PT HAS USED 14.5MG OF MORPHINE FROM CONSTRUCTION SCHEDULER AT THIS TIME, THIS RN EDUCATED PT ABOUT GETTING OXYCODONE AND STILL ON THE CONSTRUCTION SCHEDULER- ENCOURAGED PT TO REDUCE USE OF CONSTRUCTION SCHEDULER DUE TO MDS WANTING TO DC IT, PT STATED UNDERSTANDING
--- NOTE | 2021-01-17 15:14 | NUR ---
PT COMPLAINING OF PAIN, OXYCODONE PRN GIVEN. PT EDUCATED ON DRAGGER PUMP USE AND WAYS TO WORK ON EASING IT OFF SLOWLY. PT VERBALIZED UNDERSTANDING. DAUGHTER IN ROOM SITTING IN RECLINER. CATHETER BAG EMPTIED. NO ADDITIONAL NEEDS AT THIS TIME.
--- NOTE | 2021-01-17 15:35 | NUR ---
THIS RN HAS REVIEWED STUDENT NURSES CHARTING AND AGREES
--- NOTE | 2021-01-17 17:00 | NUR ---
THIS RN IN PTS ROOM TO GIVE PT HER EVENING MEDS. PT LAYING IN BED. THIS RN NOTED THAT PT HAS USED 20.3MG OF BLUE LINE TRIMMER MORPHINE AT THIS TIME. THIS RN ALTERED PT THAT ONCE THIS CARTRIGE IS DONE, WOULD LIKE THE BLUE LINE TRIMMER OFF. PT STATED UNDERSTANDING. PT REPORTS THAT SHE HAS MINIMAL APPETITE BUT STATES THAT SHE HAS NO NAUSEA OR INCREASED PAIN AT THIS TIME
--- NOTE | 2021-01-17 20:13 | NUR ---
PT TRIED TO WALK DOWN HALLWAYS AND BACK TO BED, TOLERATED POORLY. F/C IN PLACE, IN ROOM AIR, MEDICAL INFORMATION SPECIALIST STILL INFUSING, PT AWARE TO BE DC'D AFTER CARTRIDGE IS DONE. STATED UNDERSTANDING, MEDICATED AT BEGINING OF SHIFT WITH OXYCODONE
--- NOTE | 2021-01-17 23:15 | NUR ---
HAD ANOTHER SMALL SEMILIQUID SOFT BM, C/O ABD PAIN, MEDICATD WITH OXYCODONE 10MG PO. TOLERATING LARGE AMOUNTS OF LIQUIDS, NO EMESIS. UP TO BSC, USES CALL LIGHT,
--- NOTE | 2021-01-18 01:14 | NUR ---
on rooom air, resting, eys closed, no resp distress, fluids and call light at bedside. f/c patent
--- NOTE | 2021-01-18 05:04 | NUR ---
Pt has been weaned off Morphine AGRICULTURAL ENGINEERING TECHNICIANS, took a total of 58.4mg.. 2 SL patent. no emesis, tolerating large amounts of fluids and voiding large amounts of yellow urine. f/c patent. not chronic. Has been medicated with Oxycodone 10mg X3 with good pain relief. tolerating full liquid diet. up to BSC, has had several small amounts george semiliquid bms. uses call light, on room air. Pt walked down hallway X1 tolerated fair
--- NOTE | 2021-01-18 07:01 | NUR ---
awake, c/o abd pain, medicated with Oxycodone 10mg po. tolerating fluids well, f/c patent, draining large amounts of clear yellow urine. turns and repositions self in bed. no emesis.
--- NOTE | 2021-01-18 08:08 | NUR ---
PT WAS RESTING IN BED. MORNING ASSESSMENT COMPLETED. LUNG SOUNDS WERE CLEAR. PT IS ON ROOM AIR. DENIES SOB. BOWEL TONES WERE HYPERACTIVE. TENDERNESS ON THE LEFT SIDE OF THE ABDOMEN. PT STATED 6/10 PAIN ON REASSESSMENT. PT DENIES NUMBNESS OR TINGLING IN EXTREMITES. PT WAS SWEATY THIS MORNING. NEW GOWN WAS GIVEN. IV SITES ARE SALINE LOCKED AND DRESSINGS INTACT. PT UPDATED ON PLAN OF CARE FOR THE DAY. PT EDUCATED ON GETTING UP AND WAKLING TODAY. IF PAIN LEVELS ARE MANAGABLE POSSIBLE DC. MORNING MEDICATIONS WILL BE PASSED AFTER PT EATS BREAKFAST. CALL LIGHT IN REACH NO FURTHER NEEDS AT THIS TIME.
--- NOTE | 2021-01-18 09:33 | NUR ---
MORNING MEDICATIONS GIVEN. PT STATED NO NAUSEA AT THIS TIME. PT EDUCATED ON TAKING FLAGYL AT HOME WITH MEALS TO PREVENT N/V. PT DEMETRIO DC'D PER DR FOSTER. URINE OUTPUT WAS CLEAR YELLOW URINE AT 275. PT TOLERATED THIS WELL. PT STATED SHE WILL REST FOR A WHILE AND THEN GET UP AND WALK A FEW LAPS. PT VITAL SIGNS TAKEN. WNL SEE DOCUMENTATION. PT I/O TAKEN. WNL. SEE DOCUMENTATION. CALL LIGHT IN REACH NO FURTHER NEEDS AT THIS TIME.
--- NOTE | 2021-01-18 11:10 | NUR ---
PT STATED 9/10 PAIN IN LEFT ABDOMENAL AREA. PT WAS DUE FOR PAIN MEDICATION. 10MG OF OXY WAS GIVEN SEE EMAR. PT STATED ONCE MEDICATION KICKED IN SHE IS WILLING TO GO FOR A WALK AROUND THE UNIT. NO FURTHER NEEDS AT THIS TIME.
--- NOTE | 2021-01-18 11:37 | NUR ---
PT UP WALKING IN THE HALLS WITH HER DAUGHTER.
--- NOTE | 2021-01-18 13:06 | NUR ---
PT WAS GIVEN ORDERED DOSE OF FLAGYL. SEE EMAR. PT HAS BEEN URINATING WELL AFTER ATKINSON DC'D. PT PAIN REASSESSED AT 7/10 IN THE LEFT ABDOMNINAL AREA. PT CAN HAVE ANOTHER DOSE OF PAIN MEDICATION AT 1500. PT IS AWARE OF WHEN SHE CAN HAVE HER NEXT DOSE. PT WATER FILLED. NO FURTHER NEEDS AT THIS TIME.
--- NOTE | 2021-01-18 14:30 | NUR ---
PT AMBULATING IN ROOM, VOIDED. VSS, SLIGHTLY HYPERTENSIVE BUT PT WITH INCREASED PAIN /10. PT ON ROOM AIR, LUNG SOUNDS CLEAR. BOWEL TONES ACTIVE, DENIES NAUSEA, TOLERATED LOW FIBER DIET FOR LUNCH, PT CONTINUES TO HAVE LOOSE BM, SMALL AMOUNT. CMS INTACT, WITHOUT EDEMA. IV SLAINE LOCKED. MEDICATIONS ADMINISTERED PER EMAR. PT WOULD LIKE TO SHOWER WHEN HER DAUGHTER COMES BACK, ITEMS PROVIDED AND DISCUSSED CALLING RN WHEN READY TO SHOWER TO PROTECT IV. PT DENIES OTHER NEEDS AT THIS TIME.
--- NOTE | 2021-01-18 16:00 | NUR ---
IV CATH COVERED FOR SHOWER. PT INDEPENDENT FOR SHOWER. PT DENIES OTHER NEEDS AT THIS TIME.
--- NOTE | 2021-01-18 18:40 | NUR ---
PT ADVANCED TO LOW FIBER DIET, TOLERATING WELL. PT PAIN WELL CONTROLLED WITH OXYCODONE 10MG Q4H. PT ON ROOM AIR, LUNG SOUNDS CLEAR. ATKINSON DC THIS AM, VOIDING QS WITHOUT DIFFICULTY. PLAN FOR DC TOMORROW.
--- NOTE | 2021-01-18 18:41 | NUR ---
PT RATING PAIN 9/10, GIVEN 10MG OXYCODONE. PT WITH GOOD APPETITE. VSS. PT DENIES OTHER NEEDS AT THIS TIME.
--- NOTE | 2021-01-18 19:20 | NUR ---
awake, on room air, no c/o abd pain or emesis. watching tv
--- NOTE | 2021-01-18 20:45 | NUR ---
coop with assessment, on room air, watching tv, sl lw removed, not patent, up to br, voiding qs urine, tolerting fluids well. no c/o abd pain. abd distended soft, hea
--- NOTE | 2021-01-18 22:31 | NUR ---
IN BED, C/O ABD PAIN 05/08. MEDICATED WITH OXYCODONE 15MG PO. TOLERATING FLUIDS WELL, VOIDING QS
--- NOTE | 2021-01-18 23:59 | NUR ---
AWAKE, NO FURTHER C/O ABDPAIN, NO EMESIS, CALL LIGHT AT BEDSIDE, VOIDING LARGE AMOUNTS OF QS URINE
--- NOTE | 2021-01-19 02:34 | NUR ---
UP TO BR, VOIDED, A FORMED, YELLOW BM. VOIDED LARGE AMONT OF YELLOW URINE. C/O 04/07 ABD PAIN, MEDICATED WITH OXYCODONE 15MG. "IT TAKES THE EDGE OFF" STATED. IN BED, ROOM AIR. NO FURTHER C/O, ABD LESS DISTENDEDN VENANCIO. NO EMESIS
--- NOTE | 2021-01-19 03:46 | NUR ---
resting, eys closed, no resp distress, call light and fluids at bedside, no further c/o abdpain, no emesis
--- NOTE | 2021-01-19 04:23 | NUR ---
Pt has slept this shift, has been medicated with Oxycodone 15mg several times this shift, "It takes the edge off" pt stated. abd distention much improved. had a light brown-yellow formed bm. on room air, sl patent. independent in room, voiding QS, tolerating liquids well. no emesis. on low fiber diet. continue to provide ed.
--- NOTE | 2021-01-19 06:37 | NUR ---
medicated with oxycodone 15mg po, per abd pain. no emesis. awake, tolerating liquids well, voiding large amount of yellow urine. uses call light
--- NOTE | 2021-01-19 07:52 | NUR ---
PATIENT AWAKE IN BED. AM CARE DONE BREAKFAST ORDERED. PATIENT DOES NOT WANT UP IN CHAIR. WILL SHOWER LATER PATIENT STATED IF NOT DISCHARGED. CALL LIGHT IN REACH NOTHING ELSE NEEDED.
--- NOTE | 2021-01-19 07:52 | NUR ---
REPORT RECEIVD. PT IN BED WATCHING TV. PT IS ALERT AND ORIENTED. REPORTS PAIN 7/10. PAIN MEDS GIVEN EARLIER. CALL LIGHT IN REACH. PT DENIES FURTHER NEEDS.
--- NOTE | 2021-01-19 08:59 | NUR ---
ROUNDED WITH DR MCCALLUM. PLAN OF CARE, INCLUDING PAIN MANAGEMENT, DISCUSSED. EDUCATION PROVIDED FOR LOW-FIBER DIET. REED TO BEDSIDE. ASSESSMENT COMPLETED. PAIN REPORTED 8/10. DAUGHTER AT BEDSIDE. ALEN DE GUZMAN.
--- NOTE | 2021-01-19 09:36 | CONS ---
[facility] [address] [place], [place] [address] Signed DATE OF CONSULTATION: TIME: 08:30 p.m. REQUESTING PHYSICIAN: Dr. Vera Gloria. PROBLEM: Generalized peritonitis, probable acute colitis. HISTORY OF PRESENT ILLNESS: This 55-year-old white woman is known to me from the past. She presented to the emergency room with severe abdominal pain and distention. Her symptoms began Tuesday (today is Tuesday). Her evaluation by Dr. Corey in the emergency room confirmed findings of generalized tenderness throughout the abdomen. She additionally was mildly febrile with a temperature of 99 and slight hypotension with a blood pressure of 91 systolic with a pulse of 115. She was clinically and markedly dehydrated. A CT scan of the abdomen was performed, which I have reviewed earlier in the day and which was reviewed by Dr. Reed confirming some intraabdominal ascites and thick fluid-filled colon consistent with colitis and small bowel also with inflammation suggesting enteritis. It is thought unlikely to be a diverticulitis problem. It is noted the patient has had diverticulitis in the past, however. There is no evidence of free air. The patient was admitted to the intensive care unit by Dr. Gloria anticipating further management. Antibiotics have been initiated as has been hydrocortisone on the high probability this represents an acute inflammatory process related to inflammatory bowel disease, specifically ulcerative colitis. The patient denies any hematemesis or blood per rectum. She has only had water today. PAST MEDICAL HISTORY: Does include hypertension. MEDICATIONS: At admission include lisinopril and [place] from time to time as well as Flexeril. PAST SURGICAL HISTORY: Includes cholecystectomy in the past. FAMILY HISTORY: Electronically Signed By: SAMY MCCALLUM MD 01/19/21 0936 PATIENT NAME: DUSTIN BISHOP CONSULTATION DATE OF : 67 REPORT #: [id number] PHYSICIAN: SAMY MCCALLUM MD PCP: JOY FLOYD MD REPORT IS CONFIDENTIAL AND NOT TO BE RELEASED WITHOUT AUTHORIZATION [facility] [address] [place], [place] [address] Signed Negative for colon cancer or ulcerative colitis that she knows of. SOCIAL HISTORY: The patient does smoke on a daily basis. REVIEW OF SYSTEMS: She does feel quite dehydrated and thirsty. She had vomiting and diarrhea, but recently only diarrhea. She has had no blood per rectum. She denies any chest pain. She has had no hematemesis. PHYSICAL EXAMINATION: GENERAL: A pleasant white woman, who looks to be in moderate discomfort. She is not delirious. HEENT: Mucous membranes are quite dry. Trachea is midline. She has no jugular venous distention. CHEST: Chest shows normal respiratory excursion without tachypnea at this time. HEART: Regular. ABDOMEN: Distended and obese, but with some obvious fluid as well. There is diffuse peritonitis and tenderness throughout. LABORATORY STUDIES: Show electrolytes with a sodium of 129, potassium 3.8, creatinine 1.14. Lactic acid at 05:12 p.m. was 2.3. Liver enzymes are normal. Alkaline phosphatase 174. White count is 19.6. There is 8% bands. Coronavirus PCR is negative. Urinalysis shows specific gravity of 1.020, otherwise normal. I have reviewed the CT scan in detail. ASSESSMENT: Most likely the patient has acute colitis. This may represent ulcerative colitis. I would recommend broad-spectrum antibiotics and empiric treatment with hydrocortisone 100 mg IV q.8 hours. Additional fluid resuscitation would be appropriate in her situation. If she does have diarrhea, it should be sent for pathogens assessment. She has no family history of inflammatory bowel disease, though it is still a high probability in her case. There is no evidence of perforation, though she does have generalized peritonitis for which improvement should be prompt and high index of suspicion for toxic megacolon requiring urgent colectomy also recognized. I would expect improvement within the next 6 to 12 hours with the aforementioned interventions. Lactic acid level will be obtained again relatively soon also. Samy Mccallum MD Electronically Signed By: SAMY MCCALLUM MD 01/19/21 0936 PATIENT NAME: DUSTIN BISHOP CONSULTATION DATE OF : 67 REPORT #: [id number] PHYSICIAN: SAMY MCCALLUM MD PCP: JOY FLOYD MD REPORT IS CONFIDENTIAL AND NOT TO BE RELEASED WITHOUT AUTHORIZATION [facility] [address] [place], [place] [address] Signed CHINO/RICARDA /[id number] cc: MD Vera Crowe MD Copies: JOY FLOYD MD, CYNTHIA MD ~ Electronically Signed By: SAMY MCCALLUM MD 01/19/21 0936 PATIENT NAME: DUSTIN BISHOP CONSULTATION DATE OF : 67 REPORT #: [id number] PHYSICIAN: SAMY MCCALLUM MD PCP: JOY FLOYD MD REPORT IS CONFIDENTIAL AND NOT TO BE RELEASED WITHOUT AUTHORIZATION
--- NOTE | 2021-01-19 09:36 | OR ---
[facility] [address] [place], [place] [address] Signed DATE OF OPERATION: 01/13/2021 SURGEON: Samy Mccallum MD PREOPERATIVE DIAGNOSES: 1. Diffuse colitis with colonic dilation. 2. Recent sepsis (improving). POSTOPERATIVE DIAGNOSIS: Pseudomembranous colitis left and transverse colon with rectal sparing. PROCEDURE: Colonoscopy beyond splenic flexure with biopsies. ANESTHESIA: Intravenous sedation, propofol infusion Paras Perales CRNA INDICATIONS: This 55-year-old white woman is on the service of the hospitalist, Dr. Gloria, who was admitted on 01/11/2021 with abdominal distention, low-grade ascites, severe generalized peritonitis, elevated white count and elevated lactic acid level. Fluid resuscitation was undertaken and broad-spectrum antibiotic meropenem given and hydrocortisone on the high probability this represented ulcerative colitis considering CT scan finding showing dilated colon and inflammation and colitis. The patient has no known recent exposure to antibiotics. She has improved with fluid resuscitation and the medications as described, but is still diffusely tender. I have recommended colonoscopy (perhaps limited) to allow for biopsy and evaluation to differentiate the type of colitis. A C difficile specimen has been sent, but not yet reported. Serial abdominal x-rays have shown persistent dilation of the colon to about 6.5 cm but not worsening. As she is somewhat better clinically and absolutely better hemodynamically, I believe her to be safe at this time for colonoscopy mindful that she has increased risk of perforation and so on. The risk of bleeding, infection, and perforation have been reviewed with her, she understands and wished to proceed. FINDINGS: Pseudomembranous colitis was noted extending from approximately the sigmoid to the mid transverse colon. I did not pass the scope much beyond that. There was rectal sparing. Biopsies were taken of the pathologic process as well as the rectum. DESCRIPTION OF PROCEDURE: Electronically Signed By: SAMY MCCALLUM MD 01/19/21 0936 PATIENT NAME: DUSTIN BISHOP OPERATIVE REPORT DATE OF : 67 REPORT #: [id number] PHYSICIAN: SAMY MCCALLUM MD PCP: JOY FLOYD MD REPORT IS CONFIDENTIAL AND NOT TO BE RELEASED WITHOUT AUTHORIZATION [facility] [address] [place], [place] [address] Signed The patient was brought to the endoscopy suite and placed in the lateral decubitus position, given intravenous sedation with propofol infusional technique with full cardiopulmonary monitoring. Digital rectal examination allowed for egress of air from the rectum. An Olympus video colonoscope was passed in the rectum and manipulated throughout the colon quite carefully and with minimizing of air. Diverticular changes were noted in the sigmoid, a long-standing finding known from the past. Upon entry into the left colon, quite clear evidence of pseudomembranous colitis was noted. The scope was advanced a bit further and position of the scope likely beyond the splenic flexure. Biopsies were obtained and the scope gently and carefully withdrawn. At approximately the distal sigmoid and proximal rectum, there was complete sparing of any inflammation of any sort at all indicative of very low probability of ulcerative colitis after all. Biopsies were taken of the rectum as well. The scope was removed and the patient was taken back to the intensive care unit in good condition overall. CONCLUDING DIAGNOSIS: Probable C difficile pseudomembranous colitis. PLAN: A change of therapy is indicated to include IV vancomycin, oral vancomycin, additional treatment with Flagyl for other enteric pathogens that may translocate and likely discontinuance of hydrocortisone. We will review for C difficile more fully as well. Psuedomembranes are not diagnostic of C difficile, but are strongly associated with it. MD CHINO Fabian/MODL /[id number] cc: MD Joy Winters MD Copies: HEAVENLY GLORIA MD Electronically Signed By: SAMY MCCALLUM MD 01/19/21 0936 PATIENT NAME: DUSTIN BISHOP OPERATIVE REPORT DATE OF : 67 REPORT #: [id number] PHYSICIAN: SAMY MCCALLUM MD PCP: JOY FLOYD MD REPORT IS CONFIDENTIAL AND NOT TO BE RELEASED WITHOUT AUTHORIZATION [facility] [address] [place], [place] [address] Signed JOY FLOYD MD ~ Electronically Signed By: SAMY MCCALLUM MD 01/19/21 0936 PATIENT NAME: DUSTIN BISHOP OPERATIVE REPORT DATE OF : 67 REPORT #: [id number] PHYSICIAN: SAMY MCCALLUM MD PCP: JOY FLOYD MD REPORT IS CONFIDENTIAL AND NOT TO BE RELEASED WITHOUT AUTHORIZATION
--- NOTE | 2021-01-19 10:23 | NUR ---
PATIENT IN BED AFTER WALKING WITH DAUGHTER. VITALS AND i&O'S CHARTED. CALL LIGHT IN REACH NOTHING ELSE NEEDED
[2021-01-19] MEDS ORDERED: CIPROFLOXACIN500 MG PO (11:52)
[2021-01-19] MEDS ORDERED: METRONIDAZOLE250 MG PO (11:52)
[2021-01-19] MEDS ORDERED: IBUPROFEN600 MG PO (11:53)
[2021-01-19] MEDS ORDERED: NICOTINE GUM2 MG BUCCAL (11:54)
[2021-01-19] MEDS ORDERED: OXYCODONE HCL5 MG PO (11:56)
--- NOTE | 2021-01-19 12:02 | NUR ---
TO BEDSIDE FOR MED PASS. PT REPORTING PAIN 04/07. WILL CONTINUE TO MONITOR FOR DECREASE D/T PAIN MED BEING ADMISNTERED RECENTLY. DISCHARGE ORDER RECIEVED. IV DC'D. CATH INTACT. PT UP TO SHOWER INDEPENDENTLY.
--- NOTE | 2021-01-19 12:50 | NUR ---
DISCHARGE INSTRUCTIONS PROVIDED. PT WITH NO QUESTIONS. PT WHEELED OUT.
--- NOTE | 2021-01-19 14:01 | NUR ---
PT ALERT, ORIENTED AND FEELING MUCH BETTER. PT GETTING READY TO AMBULATE IN [place] WITH DAUGHTER. THANKED ME FOR CHECKING, GAVE BLESSING. WILL FOLLOW NEEDED
[2021-04-02] MEDS ORDERED: MULTIVITAMIN1 EACH PO (15:46)
== END 2021-01-19 13:05 | disposition home or self-care (01) | DRG 871 ==
LOC: ED 15:42 → CCU 19:29 → MS 01-16 12:40
PROVIDERS: Surgery; ADMIT Internal Medicine; ATTEND Internal Medicine
PROC: 0DBL8ZX Excision of Transverse Colon, Via Natural or Artificial Opening Endoscopic, Diagnostic (ICD-10-PCS; 2021-01-13)
PROC: 0DBN8ZX Excision of Sigmoid Colon, Via Natural or Artificial Opening Endoscopic, Diagnostic (ICD-10-PCS; 2021-01-13)
PROC: 0DBP8ZX Excision of Rectum, Via Natural or Artificial Opening Endoscopic, Diagnostic (ICD-10-PCS; principal; 2021-01-13 15:15)
DX: A41.9 Sepsis, unspecified organism (principal); K72.00 Acute and subacute hepatic failure without coma; K55.039 Acute (reversible) ischemia of large intestine, extent unspecified; K65.0 Generalized (acute) peritonitis; E87.1 Hypo-osmolality and hyponatremia; R18.8 Other ascites; Z20.822 Contact with and (suspected) exposure to COVID-19; E86.0 Dehydration; E87.6 Hypokalemia; E83.42 Hypomagnesemia; F17.200 Nicotine dependence, unspecified, uncomplicated; G89.29 Other chronic pain; M54.9 Dorsalgia, unspecified; I10 Essential (primary) hypertension; Z79.899 Other long term (current) drug therapy; Z79.891 Long term (current) use of opiate analgesic
CPT/HCPCS: 36415; 74018; 74177; 80048; 80053; 80076; 80202; 81001; 83605; 83690; 83735; 85025; 86140; 87040; 87045; 87046; 87077; 87493; 96375; 96376; 99285-25; 99406; C9113; C9803; J0131; J1170; J1650; J1720; J1885; J2001; J2185; J2270; J2405; J2704; J3370; J3475; J3480; J7030; J7060; J7120; J7121; Q9967; U0003

== ENCOUNTER 2021-04-03 07:00 | Day surgery (SDC) | payer OTHER ==
[~2021-04-03] VITALS: Ht 162.6 cm; Wt 75.0 kg
[~2021-04-03 07:00] MED LIST: CIPROFLOXACIN500 MG PO; CYCLOBENZAPRINE10 MG PO; HYDROCODON-ACE1 EA10 PO; IBUPROFEN600 MG PO; LISINOPRIL2.5 MG PO; METRONIDAZOLE250 MG PO; MULTIVITAMIN1 EACH PO; NICOTINE GUM2 MG BUCCAL; OXYCODONE HCL5 MG PO
[2021-04-03] MEDS ORDERED: PROZAC10 MG (07:20)
--- NOTE | 2021-04-03 09:50 | NUR ---
04/03/21 0950 Rosa Mccann 0932 PATIENT ARRIVES TO PACU AWAKE BUT DROWSY. C/O ABD CRAMPING. PASSING GAS. RESP EVEN AND UNLABORE, NC AT 2 LITERS. 0940 PATIENT C/O INCREASED CRAMPING. UP TO COMMODE WITH STANDBY ASST. LARGE BROWN LIQUID STOOL OUT. OXYGEN OFF. RESP EVEN AND UNLABORED, ROOMAIR SATS >93%. CONTINUES TO ABD CRAMPING, SLIGHTLY IMPROVED AFTER ABD. 0949 PATIENT RESTING QUIETLY, AWAKE OFF/ON. CONTINUES TO C/O ABD CRAMPING. RESP EVEN AND UNLABORED, ROOMAIR SATS >95%. XRAY ORDERED BY DR MCCALLUM TO CONFIRM CLIP PLACEMENT.
--- NOTE | 2021-04-09 16:26 | OR ---
[facility] [address] [place], [place] [address] Signed DATE OF OPERATION: 04/03/2021 SURGEON: Samy Mccallum MD PREOPERATIVE DIAGNOSIS: History of severe left-sided ischemic colitis, December 2020; known diverticulosis. POSTOPERATIVE DIAGNOSES: 1. Diverticulosis of sigmoid and left colon. 2. Non-passable stricture at 58 cm. PROCEDURES: Colonoscopy with application of hemoclip and biopsy of stricture site. ANESTHESIA: Intravenous sedation, fentanyl 150 mcg and Versed 10 mg. INDICATION: This 55-year-old white woman is a patient of Dr. Joy Hurt and was hospitalized in December of 2020 with severe left-sided abdominal pain. FINDINGS: Ultimately found to be consistent with ischemic colitis. The patient was a smoker prior to this, though tells me she is abstinent of smoking now. She recovered with IV antibiotics and bowel rest, and so on. She has been maintaining a low-fiber diet since that time. She is generally feeling quite well overall. She is admitted at this time to undergo colonoscopy to assess that there has been no development of stricture or any residual ischemic colitis findings, so as to resume normal diet. The risks of bleeding, infection, and perforation were reviewed with her, she understands wished to proceed. The colonic area visualized, showed no sign of neoplasm or inflammation. There were numerous diverticula of the sigmoid and left colon. At 58 cm was what appeared to be a non passable stricture of the colon. Various maneuvers were undertaken to pass beyond this, but stricture would not allow passage of the tip of the colonoscope. On that basis, the area was biopsied and clipped and a postprocedure KUB will be obtained. Consideration will be made in the future for dilation of the stricture. DESCRIPTION OF PROCEDURE: The patient was brought to the endoscopy suite and placed in lateral decubitus position, given intravenous sedation to the point of slurred speech and nystagmus. Full Electronically Signed By: SAMY MCCALLUM MD 04/09/21 1626 PATIENT NAME: DUSTIN BISHOP OPERATIVE REPORT DATE OF : 67 REPORT #: [id number] PHYSICIAN: SAMY MCCALLUM MD PCP: JOY HURT MD REPORT IS CONFIDENTIAL AND NOT TO BE RELEASED WITHOUT AUTHORIZATION [facility] [address] [place], [place] [address] Signed cardiopulmonary monitoring was maintained. Additional sedation was given as needed. Digital rectal examination was undertaken showing a small thrombosed hemorrhoid. An Olympus video colonoscope was passed in the rectum and manipulated through the sigmoid and rectosigmoid to the areas of diverticulosis in the past more proximally. Although, there were numerous diverticula both small and large, the lumen of the colon was found to be narrowed and passage of the scope through this area was not possible. Various maneuvers were undertaken to allow for passage of the scope, but it was not forthcoming. Care was taken to assure that this did not represent a large lumen diverticulum and it certainly did not. Without the ability to pass this area, the area was biopsied and then clipped anticipating a postprocedure KUB. The scope was then withdrawn and examination throughout showed only diverticulosis. The scope was removed and the patient was taken to the recovery room in good condition. CONCLUDING DIAGNOSIS: A non-passable stricture at 58 cm as noted. Whether this will improve over time is uncertain. She has maintained a low-fiber diet up to this point and therefore has been symptom-free as regard to colonic obstruction. It certainly is possible that it will improve over time, but a dilation may be required or even resection should it prove symptomatic and not responsive to dilation or other methods. PLAN: For now, we will recommend generally low-fiber diet with exceptional fiber intake and assess her clinical progress. Consideration might be made for endoscopic dilation with a PET balloon dilator likely to require a flexible upper endoscope given the length of the catheter and so on. Samy Mccallum MD /MODL /[id number] cc: Joy Hurt MD Copies: JOY HURT MD Electronically Signed By: SAMY MCCALLUM MD 04/09/21 1626 PATIENT NAME: DUSTIN BISHOP OPERATIVE REPORT DATE OF : 67 REPORT #: [id number] PHYSICIAN: SAMY MCCALLUM MD PCP: JOY HURT MD REPORT IS CONFIDENTIAL AND NOT TO BE RELEASED WITHOUT AUTHORIZATION [facility] [address] [place] [id number] Signed ~ Electronically Signed By: SAMY MCCALLUM MD 04/09/21 1626 PATIENT NAME: DUSTIN BISHOP OPERATIVE REPORT DATE OF : 67 REPORT #: [id number] PHYSICIAN: SAMY MCCALLUM MD PCP: JOY HURT MD REPORT IS CONFIDENTIAL AND NOT TO BE RELEASED WITHOUT AUTHORIZATION
--- NOTE | 2021-04-10 15:05 | PATH ---
[facility] [address] [facility] [place], [place] [address] Signed SPECIMEN(S): A STRICTURE AT 58 CM SPECIMEN SOURCE: A. STRICTURE AT 58 CM CLINICAL HISTORY: Colonoscopy. Ischemic colitis. MICROSCOPIC DESCRIPTION: Histologic sections of all submitted blocks are examined by light microscopy. These findings, together with the gross examination, support the pathologic diagnosis. FINAL PATHOLOGIC DIAGNOSIS: Colon, stricture at 58 cm, biopsy: - No significant histopathology. - Multiple serial sections were examined. COMMENT: The sections from the specimen contain architecturally normal colonic mucosa without crypt distortion. There is no acute or chronic inflammation. There is no evidence of microscopic colitis. There are no abnormal organisms or infiltrates. There are no polyps or neoplasms. There is no evidence of ischemic colitis present in these sections. No submucosa is present for evaluation. If a stricture is emanating from a submucosal lesion, a deeper biopsy may be able to pinpoint the cause of this stricture. NEHEMIASK:vlg:[id number] GROSS DESCRIPTION: The specimen, labeled "TG, stricture at 58 cm," is received in formalin and consists of two fragments of pink-melgoza tissue (0.1 and 0.3 cm in greatest dimension). The specimen is submitted entirely in cassette (A1). AC (under the direct supervision of a pathologist The Gross Description was prepared using a voice recognition system. The report was reviewed for accuracy; however, sound-alike word errors, addition and/or deletions may occur. If there is any question about this report, please contact Client Services. PERFORMING LABORATORY: The technical component was performed by [employer], Valeriano Cisneros, PATIENT NAME: DUSTIN BISHOP PATHOLOGY DATE OF : 67 REPORT #: [id number] PHYSICIAN: GIORGI RAMIREZ PCP: JOY FLOYD MD REPORT IS CONFIDENTIAL AND NOT TO BE RELEASED WITHOUT AUTHORIZATION [facility] [address] [place], [place] [address] [place] [address] ([employer]: Meghan Pringle MD; CLIA# [id number]). Professional interpretation was performed by [facility], [address] [address] (CLIA# [id number]). Diagnostician: Raulito Jacinto MD Pathologist Electronically Signed 04/10/2021 Copies: ~ PATIENT NAME: DUSTIN BISHOP PATHOLOGY DATE OF : 67 REPORT #: [id number] PHYSICIAN: GIORGI RAMIREZ PCP: JOY FLOYD MD REPORT IS CONFIDENTIAL AND NOT TO BE RELEASED WITHOUT AUTHORIZATION
== END 2021-04-03 10:20 | disposition home or self-care (01) ==
LOC: DS 07:00 → OPS 07:00 → DS 08:00 → OPS 08:00
PROVIDERS: ATTEND Surgery
PROC: 0DBE8ZX Excision of Large Intestine, Via Natural or Artificial Opening Endoscopic, Diagnostic (ICD-10-PCS; principal; 2021-04-03 08:00)
DX: K57.30 Diverticulosis of large intestine without perforation or abscess without bleeding (principal); K56.699 Other intestinal obstruction unspecified as to partial versus complete obstruction; I10 Essential (primary) hypertension; K64.9 Unspecified hemorrhoids; Z87.891 Personal history of nicotine dependence; Z88.1 Allergy status to other antibiotic agents; Z87.19 Personal history of other diseases of the digestive system; Z90.49 Acquired absence of other specified parts of digestive tract
CPT/HCPCS: 74018; 99153; G0500; J2250; J3010; J7121

== ENCOUNTER 2021-04-10 08:22 | Day surgery (SDC) | payer OTHER ==
[~2021-04-10] VITALS: Ht 315 cm; Wt 73.0 kg
[~2021-04-10 08:22] MED LIST changes: +PROZAC10 MG
--- NOTE | 2021-04-10 10:43 | NUR ---
04/10/21 1043 Sheets,Juliana 1031 PT ARRIVED TO PACU ON RA, PT WAKES EASILY AND DENIES PAIN. PT ENCOURAGED TO PASS GAS/AIR. VSS.
--- NOTE | 2021-04-13 09:06 | OR ---
[facility] [address], [place] [address] Signed DATE OF OPERATION: 04/10/2021 SURGEON: Samy Mccallum MD PREOPERATIVE DIAGNOSES: 1. History of severe left-sided ischemic colitis in December 2020. 2. Recent colonoscopic findings of stricture regional splenic flexure-non passable with colonoscope (April 03, 2021). 3. Diverticulosis, left colon. POSTOPERATIVE DIAGNOSES: 1. Stricture x2, dominant stricture at 55 mm. 2. Diverticulosis. 3. Nearly resolved ischemic colitis otherwise. PROCEDURE: 1. Colonoscopy with stricture dilation (Travel DesiyaMed eliminator PET balloon dilation, 60-Lebanese) 20 mm. 2. Application of spot endoscopic tattoo to strictures x2. 3. Colonic biopsies with completion colonoscopy to cecum. ANESTHESIA: Intravenous sedation, fentanyl 200 mcg and Versed 15 mg total. 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 Carson Hurt. She was hospitalized by me in December of 2020 with severe left-sided ischemic colitis. She was maintained with antibiotics, bowel rest, and so forth as well as a low-fiber diet one week ago. A week ago today, she underwent a followup colonoscopy to assess for stricture formation. Numerous diverticula were seen in the sigmoid and left colon, but most importantly in the region of the splenic flexure was a dense stricture that would not accommodate passage of the colonoscope. She was maintained on a low-fiber diet and returns today for colonoscopic balloon dilation of the stricture in hopes of passing the scope more proximally as well. She understands the risks of bleeding, infection, perforation, recurrent stricture, and other unforeseen complications related to this endeavor and wishes to proceed. FINDINGS: Electronically Signed By: SAMY MCCALLUM MD 04/13/21 0906 PATIENT NAME: DUSTIN BISHOP OPERATIVE REPORT DATE OF : 67 REPORT #: [id number] PHYSICIAN: SAMY MCCALLUM MD PCP: JOY HURT MD REPORT IS CONFIDENTIAL AND NOT TO BE RELEASED WITHOUT AUTHORIZATION [facility] [address], [place] [address] Signed The prep was good. She has been maintained on a low-fiber diet and had conventional MiraLAX bowel prep preoperatively. Numerous diverticula were noted in the sigmoid and left colon. The area of stricture in the left colon region of the splenic flexure was dense and underwent dilation to 60-Lebanese (20 mm) with a manometric balloon (ConMed type) 250 psi. Passage of a pediatric colonoscope beyond the stricture identified another strictured area somewhat proximal to this, which did not require dilation and which accommodated the pediatric colonoscope. The colon more proximally was normal. There was no evidence of inflammation of the transverse or right colon, only the splenic flexure and portion of the proximal descending colon. Endomark tattoo dye was applied to the dense strictured areas for future reference should recurrent stricture occur. There were no complications. DESCRIPTION OF PROCEDURE: The patient was brought to the endoscopy suite and placed in lateral decubitus position, given intravenous sedation to the point of slurred speech and nystagmus; digital rectal examination was normal. Full cardiopulmonary monitoring was maintained. The Olympus video upper endoscope was initially passed into the rectum and manipulated up to the area of stricture. It would not easily pass through this on its own whether this is related to the excessive flexibility of upper endoscopes or stricture itself was uncertain. A ConMed PET balloon dilator was passed in the operating channel. The scope had been passed across the stricture and dilation undertaken sequentially to a maximum diameter of 60-Lebanese (20 mm) up to a pressure psi of 50. When this was completed, the balloon was deflated and the upper endoscope removed. A Pediatric colonoscope was then inserted and manipulated up to the area in question. This allowed passage beyond the area of stricture and more proximal examination was then undertaken ultimately to the cecum itself. The transverse and right colon showed no evidence of inflammation at all. Biopsies were taken of the cecum and the transverse colon and also biopsies at the splenic flexure where edema and loss of vascular markings was noted designating resolving ischemic colitis. The scope was passed carefully through what appeared to be a stricture proximal to the index stricture, which was not excessive. This area was biopsied and marked with Endomark tattoo dye. The scope was then withdrawn to the dominant stricture at 55 cm. This area still appeared rather firm and fibrotic, biopsies were obtained and Endomark tattoo dye applied. Given the size and length of the balloon dilator, this was passed once again through the channel of the colonoscope and situated across the stricture and multiple dilations undertaken in various lengths through the strictured area. This was dilated to 60-Lebanese (20 mm) at a psi of 50. A small amount of bleeding was noted and not considered a problem. Electronically Signed By: SAMY MCCALLUM MD 04/13/21 0906 PATIENT NAME: DUSTIN BISHOP OPERATIVE REPORT DATE OF : 67 REPORT #: [id number] PHYSICIAN: SAMY MCCALLUM MD PCP: JOY HURT MD REPORT IS CONFIDENTIAL AND NOT TO BE RELEASED WITHOUT AUTHORIZATION [facility] [address] [place] [address] Signed The balloon was deflated and the scope was withdrawn. There was some blood noted in the area of dilation on this occasion. The scope was removed fully and the balloon removed, and the scope once again introduced and passed up to the area of stricture, which allowed for passage beyond the proximal and distal stricture area. Irrigation was undertaken. There was no sign of worrisome injury with dilation, but definitely a dilation effect had occurred. Careful withdrawal of scope showed no other findings other than diverticulosis. The scope was removed and the patient was taken to the recovery room in good condition. CONCLUDING DIAGNOSIS: Colonic stricture development x2, the most dominant at 55 mm, now dilated and marked with Endomark tattoo dye. I am hopeful and optimistic that no further intervention will be necessary. PLAN: We will initiate a regular fiber diet and assess her clinical response. We will see her back in the office in 4-6 weeks, sooner if she is having problems. MD CHINO Fabian/RICARDA /[id number] cc: Joy Hurt MD Copies: JOY HURT MD ~ Electronically Signed By: SAMY MCCALLUM MD 04/13/21 0906 PATIENT NAME: DUSTIN BISHOP OPERATIVE REPORT DATE OF : 67 REPORT #: [id number] PHYSICIAN: SAMY MCCALLUM MD PCP: JOY HURT MD REPORT IS CONFIDENTIAL AND NOT TO BE RELEASED WITHOUT AUTHORIZATION
--- NOTE | 2021-04-16 17:37 | PATH ---
[facility] [address], [place] [address] Signed SPECIMEN(S): A CECUM BIOPSY SPECIMEN(S): B TRANSVERSE COLON BIOPSY SPECIMEN(S): C SPLENIC FLEXURE BIOPSY SPECIMEN(S): D COLON BIOPSY AT 70 CM SPECIMEN SOURCE: A. CECUM BIOPSY B. TRANSVERSE COLON BIOPSY C. SPLENIC FLEXURE BIOPSY D. COLON BIOPSY AT 70 CM CLINICAL HISTORY: Colonic stricture, history of ischemic colitis, diverticulosis. MICROSCOPIC DESCRIPTION: Histologic sections of all submitted blocks are examined by light microscopy. These findings, together with the gross examination, support the pathologic diagnosis. Regarding specimen D: The mucosa has a polypoid area of reactive-appearing stromal proliferation in the lamina propria with overlying mucosa ulceration. Immunohistochemical stains (with appropriately staining controls) were performed. The stromal cells are negative for CD34, DOG1, and CD117, arguing against gastrointestinal stromal tumor (GIST). Overall, the findings are favored to be reactive. There is no evidence of malignancy. FINAL PATHOLOGIC DIAGNOSIS: A. Colon, cecum, biopsy: - Colonic mucosa with no histopathologic abnormality. - Negative for active, chronic, or microscopic colitis. - Negative for dysplasia or malignancy. B. Colon, transverse, biopsy: - Colonic mucosa with no histopathologic abnormality. - Negative for active, chronic, or microscopic colitis. - Negative for dysplasia or malignancy. C. Colon, splenic flexure, biopsy: - Polypoid colonic mucosa with mild hyperplastic changes. - Negative for active, chronic, or microscopic colitis. - Negative for dysplasia or malignancy. D. Colon, 70 cm, biopsy: - Colonic mucosa with focal ulceration and reactive fibrosis. - Negative for active, chronic, or microscopic colitis. PATIENT NAME: DUSTIN BISHOP PATHOLOGY DATE OF : 67 REPORT #: [id number] PHYSICIAN: GIORGI PATHOLOGY PCP: JOY FLOYD MD REPORT IS CONFIDENTIAL AND NOT TO BE RELEASED WITHOUT AUTHORIZATION [facility] [address], [place] [address] Signed - Negative for dysplasia or malignancy. COMMENT: As part of [employer]' Quality Improvement Program, specimen D was reviewed by another member of our pathology staff. NAL:cml:C2NR GROSS DESCRIPTION: Four specimens are received in four containers, labeled "TG." A. The specimen, labeled "TG, #1," and designated on the requisition "cecum," is received in formalin and consists of two melgoza soft tissue fragments that measure 0.2 to 0.3 cm in greatest dimension. The specimen is entirely submitted in cassette (A1). B. The specimen, labeled "TG, #2," and designated on the requisition "transverse colon," is received in formalin and consists of one melgoza soft tissue fragment that measures 0.3 cm in greatest dimension. The specimen is entirely submitted in cassette (B1). C. The specimen, labeled "TG, #3," and designated on the requisition "splenic flexure," is received in formalin and consists of one melgoza soft tissue fragment that measures 0.3 cm in greatest dimension. The specimen is entirely submitted in cassette (C1). D. The specimen, labeled "TG, #4," and designated on the requisition "colon at 70 cm, stricture area," is received in formalin and consists of three melgoza soft tissue fragments that measure 0.2 to 0.3 cm in greatest dimension. The specimen is entirely submitted in cassette (D1). AT (under the direct supervision of a pathologist) The Gross Description was prepared using a voice recognition system. The report was reviewed for accuracy; however, sound-alike word errors, addition and/or deletions may occur. If there is any question about this report, please contact Client Services. PERFORMING LABORATORY: The technical component was performed by [facility] [address] (Sql Dba: Meghan Pringle MD; CLIA# [id number]). Professional interpretation was performed by [facility], [address] [place], [place] [address] (CLIA# [id number]). Diagnostician: Ewelina Peterson MD Pathologist Electronically Signed 04/16/2021 PATIENT NAME: DUSTIN BISHOP PATHOLOGY DATE OF : 67 REPORT #: [id number] PHYSICIAN: GIORGI PATHOLOGY PCP: JOY FLOYD MD REPORT IS CONFIDENTIAL AND NOT TO BE RELEASED WITHOUT AUTHORIZATION [facility] [address] [place], [place] [address] Signed Copies: ~ PATIENT NAME: DUSTIN BISHOP PATHOLOGY DATE OF : 67 REPORT #: [id number] PHYSICIAN: GIORGI PATHOLOGY PCP: JOY FLOYD MD REPORT IS CONFIDENTIAL AND NOT TO BE RELEASED WITHOUT AUTHORIZATION
== END 2021-04-10 11:12 | disposition home or self-care (01) ==
LOC: OPS 08:22 → DS 08:25 → OPS 10:00 → DS 10:00 → OPS 11:12
PROVIDERS: ATTEND Surgery
PROC: 0DBH8ZX Excision of Cecum, Via Natural or Artificial Opening Endoscopic, Diagnostic (ICD-10-PCS; 2021-04-10)
PROC: 0DBL8ZX Excision of Transverse Colon, Via Natural or Artificial Opening Endoscopic, Diagnostic (ICD-10-PCS; 2021-04-10)
PROC: 3E0H8KZ Introduction of Other Diagnostic Substance into Lower GI, Via Natural or Artificial Opening Endoscopic (ICD-10-PCS; 2021-04-10)
PROC: 0D7L8ZZ Dilation of Transverse Colon, Via Natural or Artificial Opening Endoscopic (ICD-10-PCS; 2021-04-10)
PROC: 0D7L8ZZ Dilation of Transverse Colon, Via Natural or Artificial Opening Endoscopic (ICD-10-PCS; principal; 2021-04-10 10:00)
DX: K63.5 Polyp of colon (principal); K57.30 Diverticulosis of large intestine without perforation or abscess without bleeding; K55.9 Vascular disorder of intestine, unspecified; K52.9 Noninfective gastroenteritis and colitis, unspecified; I10 Essential (primary) hypertension; K63.3 Ulcer of intestine; Z90.49 Acquired absence of other specified parts of digestive tract; Z87.891 Personal history of nicotine dependence; Z98.890 Other specified postprocedural states; Z90.711 Acquired absence of uterus with remaining cervical stump
CPT/HCPCS: 99153; C1726; G0500; J2250; J3010; J7121

== ENCOUNTER 2021-07-27 10:29 | Inpatient (IN) | payer OTHER ==
[~2021-07-27] VITALS: Ht 162.6 cm; Wt 78.2 kg
[2021-07-28] MEDS ORDERED: OSTERA TABLET1 EACH PO (08:39)
[2021-07-28] MEDS ORDERED: NUFOLA CAPSULE1 EAC1 PO (08:39)
[2021-07-28] MEDS ORDERED: LUNESTA3 MG PO (08:40)
[2021-07-28] MEDS ORDERED: MAG-OXIDE200 MG PO (08:40)
[2021-07-28] MEDS ORDERED: ZESTORETIC 10-1 EACH PO (08:41)
[2021-07-28] MEDS ORDERED: HYDROCODON-ACE1 EA11 PO (08:41)
[2021-07-28] MEDS ORDERED: VENLAFAXINE HC225 MG PO (08:42)
[2021-07-28] MEDS ORDERED: NEXIUM20 MG PO (08:42)
[2021-07-28] MEDS ORDERED: MELATONIN10 M2 PO (08:43)
--- NOTE | 2021-07-30 12:19 | NUR ---
07/30/21 Brittney Hickman 1214- PT ARRIVES TO PACU NONAROUSABLE TO NOXIOUS STIMULI WITH AN OPA IN PLACE. RESP EVEN AND UNLABORED. OXYGEN SAT HIGH 90'S TO 100% ON 6L VIA MASK. 1215- PT GAGGING ON THE OPA PERIODICALLY. PT INSTRUCTED TO OPEN HER MOUTH TO REMOVE THE OPA. PT IS NOT ABLE TO FOLLOW THIS COMMAND. OPA LEFT IN PLACE.
--- NOTE | 2021-07-30 13:23 | NUR ---
PT ALERT, ORIENTED AND SUPPORTED BY HER DAUGHTER BERNY. PT SEEMS SOMEWHAT ANXIOUS, LEGS TWITCH AND MOVE OFTEN. PT ANSWERS VERY QUICK BUT ON POINT. SARAH WILL REMAIN DURING SURGERY, PT THANKED ME FOR VISIT, MADE A REQUEST FOR PRAYER. WILL FOLLOW NEEDED
--- NOTE | 2021-07-30 14:45 | NUR ---
REPORT RECIEVED FROM PEST CONTROL OPERATOR AND PT. ARRIVED VIA STRETCHER. PT. IS ALERT, ORIENTED TO ALL, AND STATES SHE HAS BACK AND ABDOMINAL PAIN. PT. GIVEN IVP MORPHINE AND HEATING PACK. ON ROOM AIR AND O2 SAT IS 96%. MIDLINE DRESSING HAS A SCANT AMOUNT OF SHADOWING AND IS DRY AND INTACT. TREY DRESSING C/D/I. IV SITE WNL AND FLUSHES WELL. PT. GIVEN WATER AND BLANKETS. CPOX, SCD IN PLACE. BOWEL TONES RARE IN ALL QUADS. PT. LEFT RESTING WITH DAUGHTER AT BEDSIDE.
--- NOTE | 2021-07-30 15:40 | NUR ---
PT. REPORTS 8/10 ABDOMINAL PAIN, IS DIAPHORETIC AND MOANING. ADMIN MORPHINE AND NEW HEAT PACK. MIDLINE AND TREY DRESSINGS REMAIN UNCHANGED. BOWEL TONES ACTIVE. WILL CONTINUE TO MONITOR.
--- NOTE | 2021-07-30 15:41 | NUR ---
Spoke with pts daughter as pt is not feeling well and is painful. Pt cont. to live in [place] in a house. Pt and her daughter deny needs. Pt will to her home and dc and daughter will stay with her to assist.
--- NOTE | 2021-07-30 16:33 | NUR ---
PT. USES CALL LIGHT APPROPRIATELY TO REPORT PAIN THAT IS UNRELIEVED WITH MORPHINE. ADMIN IV TYLENOL AND MD UPDATED. TREY DRAIN EMPTIED OF 50ML RED DRAINAGE. WILL CONTINUE TO MONITOR.
--- NOTE | 2021-07-30 17:18 | NUR ---
PT. IS MOANING, DIAPHORETIC AND REPORTS PAIN IS UNRELIEVED WITH MORPHINE. BP AND HR INCREASINGLY ELEVATED. ABDOMINAL DRESSINGS REMAIN UNCHANGED. BOWEL TONES HYPERACTIVE. TREY DRAIN PATENT AND DRAINING RED SERISANGUINOUS FLUID. WILL CONTACT MD FOR UPDATE.
--- NOTE | 2021-07-30 17:36 | NUR ---
UPDATED ON PT'S PAIN. TELEPHONE ORDER GIVEN FOR PHARMACIST INTERN MORPHINE.
--- NOTE | 2021-07-30 17:57 | NUR ---
PT. REPORTS 10/10 ABDOMINAL PAIN AND CONTINUES TO BE DIAPHORETIC AND TEARFUL. ABDOMINAL DRESSINGS REMAIN UNCHANGED AND ARE C.D.I. BOWEL TONES HYPERACTIVE. PT. UPDATED ON POC AND WIRE RIGGER PUMP ORDER. IVF INFUSING AT 85 ML/HR. PT. LEFT RESTING WITH CALL LIGHT IN REACH.
--- NOTE | 2021-07-30 19:55 | NUR ---
BEDSIDE REPORT FROM ANU VELÁZQUEZ, PT RESTING IN BED, ALERT, HAS HAD SEVERE POST OP PAIN, DESPITE PRN MEDICATIONS GIVEN, HAS BEEN IN WELL ANESTHESIOLOGIST TO MEDICATE WITH KETAMINE, MOTION PICTURE SET GRIP STARTED, PATIENT REPORTS DOING MUCH BETTER NOW, PT'S DAUGHTER AT BEDSIDE.
--- NOTE | 2021-07-30 21:30 | NUR ---
pt REQUESTING BED CHANGE DUE TO BEING DIAPHORETIC EARLIER ON DAYSHIFT AFTER RETURNING FROM PACU. pt RESTING IN BED, AWAKE. DAUGHTER IN ROOM. CPOX IN PLACE, CALL LIGHT AND HISTOTECHNICIAN PUMP BOTH IN REACH. pt INSTRUCTED PRIMARY MELANIA RODRIGUEZ AWARE AND WILL ASSIST ONCE AVAILABLE. pt VERBALIZED UNDERSTANDING. PRIMARY MELANIA RODRIGUEZ MADE AWARE.
--- NOTE | 2021-07-30 22:00 | NUR ---
IN ROOM TO ASSIST PRIMARY RN MICHAEL WITH LINEN CHANGE. THIS RN ALSO COSIGNED WITH PRIMARY RN MICHAEL WITH SR TECHNICAL SALES CONSULTANT MORPHINE. VSS, CPOX REMAINS IN PLACE. PRIMARY RN MICHAEL REMAINS AT BEDSIDE TO COMPLETE ASSESSMENT. CALL LIGHT IN REACH.
--- NOTE | 2021-07-30 22:03 | NUR ---
PT WANTED BED CHANGED, PT ASSISTED UP TO RECLINER, SHE ASKED FOR ATIVAN THIS GIVEN AFTER PT BACK TO BED, PT ALERT AND ORIENTED, ON ROOM AIR, NEW WARM PACK GIVEN ON REQUEST. NEW MEDICAL TERRITORY MANAGER SYRINGE PROGRAM IN WITH LINDA VELÁZQUEZ CHARGE CO-SIGN. HS MED PASS AND ASSESSMENT COMPLETE. PT DAUGHTER GETTING READY TO LEAVE FOR THE NIGHT.
--- NOTE | 2021-07-30 23:27 | NUR ---
PT CALLED TO REPORT BEEPING IN ROOM, THIS RN INTO ASSESS, BEDSIDE PULSE OXIMETRY ALERTING SPD, OXYGEN SATURATION 95% ON ROOM AIR, WILL MONITOR CLOSE. PT ALERT AND ORIENTED. NO OTHER REQUESTS OR CONCERNS AT THIS TIME.
--- NOTE | 2021-07-31 | NUR ---
PT PLACED ON 2L OXYGEN, DESATURATION TO 88-89% WHILE SLEEPING. WILL MONITOR CLOSE WITH BEDSIDE PULSE OXIMETRY.
--- NOTE | 2021-07-31 00:21 | NUR ---
PT CALLED TO REPORT BEEPING, CORE SHAPER PUMP OUT, NEW VIAL PLACED WITH LINDA DELIVERY TRUCK DRIVER HEAVY VERIFICATION, REVIEWED ORDERS, CHECKED V/S, PT ALERT AND ORIENTED. SHE REQUESTED MORE WATER, PROVIDED. NO OTHER CONCERNS, SHE VERBALIZED PAIN IS TOLERABLE, BOWEL TONES ACTIVE.
--- NOTE | 2021-07-31 02:02 | NUR ---
PT ROUNDING, SHE IS SLEEPING, SNORING NOTED, RR 17 BPM, 94% ON 2L OXYGEN WHILE SLEEPING. PT ALERT TO NAME, V/S TAKEN, I/O COMPLETE, ABX ADMINISTERED PER ORDERS. PT REPORTS PAIN IS TOLERABLE, TORDOL ADMINISTERED PRN TO ASSIST IN PAIN MANAGEMENT, EDUCAITON ON [address] MAGISTRATE USE GIVEN. PT REPORTS PAIN 8/10 AT ABD, SHE REPORTS TOLERABLE.
--- NOTE | 2021-07-31 02:45 | NUR ---
PT VERBALIZED THAT SHE HAS NO INTEREST IN USING I.S. OR ANY ASSISTANCE FROM Kajal FERNÁNDEZ. SHE SAID SHE WILL WORK WITH I.S. AND RGabriel. TOMORROW. EDUCATION PROVIDED.
--- NOTE | 2021-07-31 03:35 | NUR ---
PT CALLED TO REQUEST WATER AND SODA, DWAIN LEON TO ROOM WITH ITEMS, CAROLYN REPORTED TO THIS RN THAT PT IS MOANING AND REPORTING THAT HER PAIN IS OUT OF CONTROL. THIS RN INTO ROOM TO ASSESS, PT AGREEABLE TO ANYTHING TO ADD FOR PAIN, IV TYLENOL ADMINISTERED. PT CONTINUE TO INCREASE REPORT OF PAIN AT ABD, V/S TAKEN, STABLE, 1MG IV ATIVAN ADMINISTERED, PT VERY TENSE IN BED, MUSCLES TIGHT, TALKED WITH PT ABOUT CONSCIOUS RELAXATION METHODS AND TO SLOW BREATHING, EXPLAINED THAT SHE NEEDS TO TRY TO RELAX TO ALLOW THE MEDICATIONS TO BE AFFECTIVE. PT FOLLOWED INSTRUCTIONS AND BEGAN TO MOAN LESS, LESS TENSING, BREATHING SLOWED TO 17 BPM.
--- NOTE | 2021-07-31 03:59 | NUR ---
in room with primary abdifatah almanza, cosigned and verified new senior chemical engineer morphine cartridge. room tidied, call light and senior chemical engineer pump remains in reach. primary abdifatah almanza remains in room with pt.
--- NOTE | 2021-07-31 04:03 | NUR ---
PT CALLED TO REPORT CRYOLITE RECOVERY OPERATOR BEEPING. THIS RN INTO CHANGE OUT CRYOLITE RECOVERY OPERATOR, PT REPORTS SHE HAD "SHARTED" (FARTED AND SHIT), PT ALSO SAID SHE NEEDS TO GET UP TO BATHROOM. PT UP TO BEDSIDE COMMODE, HAD LIQUID BM 250ML, SHE TOLERATED ACTIVITY WELL. SHE NOW HAS DEPENDS IN PLACE. SHE LAUGHED WITH THIS RN AND GEOPHYSICAL PARTY CHIEF IN ROOM SHE SAID IN REGARDS TO HER DEPENDS, "I KOW YOU ALL WANT MY PANTIES THEY ARE SO COOL", THIS RN SAID "HEY, GIRL, YOU MAKE THEM LOOK GOOD" SHE THEN LAUGHED, GOT BACK INTO BED, SCDS ON, PT VERBALIZED SHE IS COMFORTABLE AT THIS TIME. NO OTHER REQUESTS. ICE PACK GIVEN.
--- NOTE | 2021-07-31 05:30 | NUR ---
IN TO GET VITALS, ATKINSON EMPTIED, COUNTING LOW RESP RATE, INFORMED RN TO ASSESS, RN ABLE TO COUNT 12 RR, PT IS RESTING WELL, AWAKES TO VOICE, QUICKLY ASLEEP, NO FURTHER NEEDS
--- NOTE | 2021-07-31 05:41 | NUR ---
IV PUMP ALARMING, NEW BAG IV FLUIDS HUNG AND INFUSING DIRECTED, IV SITE WNL. pt AWOKE TO VOICE, REPORTS PAIN 2/10 "IF I DON'T MOVE". DWAIN LEON AND LAB IN ROOM FOR pt CARE. NO FURTHER NEEDS, BOTH ONCOLOGY NURSE NAVIGATOR PUMP AND CALL LIGHT IN REACH.
--- NOTE | 2021-07-31 05:56 | NUR ---
pt alert to staff at bedside, she then fell back to sleep snoring noted rr 12 bpm, no distress noted.
--- NOTE | 2021-07-31 06:07 | NUR ---
PT HAS HAD BREAK THROUGH PAIN THROUGHOUT SHIFT, SHE HAS HAD IV TYLENOL PRN, TORDOL PRN, ATIVAN X2 PRN, WELL ON 4TH 30MG VIAL IN REPLENISHMENT BUYER SINCE 1899, --. SHE HAS BEEN UP OUT OF BED TWICE, ONCE TO RECLINER FOR BED CHANGE AND ONCE TO BEDSIDE COMMODE FOR BM, FLATUS POSITIVE WELL. SHE IS NOW SLEEPING, ON 2L TO MAINTAIN GREATER THAN 89-90%. DOES NOT NEED WHILE AWAKE. NO CHANGES IN DRAINAGE ON MIDLINE DRESSING. TREY HAD 30ML 0200 S/S.
--- NOTE | 2021-07-31 09:30 | NUR ---
REPORT RECEIVED FROM NIGHT RN AND PT. CARE RESUMED. PT. IS ALERT AND ORIENTED. SHE REPORTS CONSTANT ABDOMINAL PAIN THAT IS ACHING. ADMIN IV TYLENOL AND ENCOURAGED TO USE YARDING SUPERVISOR. MIDLINE DRESSING IS DRY AND INTACT WITH SCANT AMOUNT OF SHADOWING. TREY DRAINING SERISANGUINOUS FLUID. ABDOMEN SOFT AND BOWEL TONES ACTIVE. IV SITE WNL AND FLUSHES. ZESTRIL HELD, BP WAS BELOW PARAMETERS. DISCUSSED AMBULATING THIS MORNING, BED BATH AND PAIN MANAGEMENT. PT. LEFT RESTING WITH CALL LIGHT IN REACH.
--- NOTE | 2021-07-31 11:45 | NUR ---
PT. REPORTS ITCHING AT IV SITE. IV APPEARS TO BE LEAKING AND SKIN ON HER ARMS AND CHEST IS REDDENED. PT. REPORTS THAT CHEST AND ARMS ARE ITCHING WELL. IV DC'D WNL WITH CATH INTACT. NEW IV STARTED IN LEFT HAND, 20G. PT. TOLERATED WELL. PT. STATES SHE HAD A SIMILAR REACTION TO MORPHINE WHILE HERE IN DECEMBER WHEN RECEIVING MORPHINE. MD NOTIFIED. ORDER GIVEN FOR BENADRYL AND DILAUDID GLUE SPREADING MACHINE OPERATOR.
--- NOTE | 2021-07-31 11:48 | NUR ---
PT ALERT,ORIENTED AND SITTING UP WATCHING TV AND VISITING WITH DAUGHTER SARAH PT REQUESTED I CHANGE HER RESTORATION PREFERENCE FROM AMISH TO PENTECOSTAL. I MADE THE CHANGE WITH ADMITTING.PT ADMITTED SHE IS STILL IN PAIN-NOT BAD YESTERDAY. GAVE BLESSING, WILL FOLLOW
--- NOTE | 2021-07-31 13:38 | NUR ---
MED REC COMPLETED BY PHARMACY
--- NOTE | 2021-07-31 14:45 | NUR ---
PT. REPORTS PAIN IS SLIGHTLY IMPROVED WITH PO DILAUDID AND MORPHINE NEURODIAGNOSTIC TECHNICIAN. ON ROOM AIR AND O2 SAT IS 96%. RR IS 19. MIDLINE DRESSING IS DRY AND INTACT. TREY DRAINING SERISANGUINOUS FLUID. PT. ENCOURAGED TO WALK. SHE STATES SHE HAS BEEN WALKING TO THE BEDSIDE COMMODE AND WILL AMBULATE AFTER DINNER. IV SITE WNL. PT. STILL HAS REDNESS ON ARMS AND CHEST AND REPORTS MILD ITCHING. LEFT RESTING WITH DAUGHTER AT BEDSIDE.
--- NOTE | 2021-07-31 15:38 | NUR ---
Echols catheter discontinued per provider order, cath intact, pt tolerated wwell w/o pain or discomfort.
--- NOTE | 2021-07-31 16:08 | NUR ---
PT. AMBULATED 1 LAP AROUND THE UNIT WITH SBA. SHE REPORTS INCREASED PAIN AFTER AND ADMIN. IV TYLENOL. PT. LEFT RESTING WITH CALL LIGHT IN REACH.
--- NOTE | 2021-07-31 20:24 | NUR ---
PT GIVEN PRNS AVAILABLE TO ASSIST WITH AXNIETY, RASH, PAIN. PT REPORTS SHE HAD PAINFUL DAY. SHE IS PLEASANT AT THIS TIME, AND AGREEABLE TO MEDICATION/PAIN MANAGEMENT PLAN FOR TONIGHT WITH WHAT IS CURRENTLY ORDERED. DAUGHTER AT BEDSIDE. NEW IV STARTED BY JAX VELÁZQUEZNURSES SUPERVISOR AT THIS TIME.
--- NOTE | 2021-07-31 20:35 | NUR ---
IT DISASTER RECOVERY MANAGER ROUNDING NOTE. PT RESTINGIN BED WITH PRIMARY RN AND DAUGHTER AT BEDSIDE. NEW IV PLACED BY THIS PHYSICAL THERAPIST TECHNICIAN PER PRIMARY RN REQUEST. 20G IV PLACED IN RIGHT FOREARM. BRISK BLOOD RETURN NOTED UPON INSERTION, FLUSHED WELL. PT TOLERATED WELL. VS OBTAINED, WNL. ICE WATER REFILLED. 7UP PROVIDED. PT DENIES FURTHER NEEDS AT THIS TIME. PRIMARY RN REMAINS IN ROOM. WHITE BOARD UPDATED. CALL LIGHT IN REACH.
--- NOTE | 2021-07-31 21:39 | NUR ---
PT REPORTS HER PAIN IS 7/10, 8MG PO DILAUDID ADMINISTERED PO PRN AT THIS TIME. SHE ALSO REQUESTED PUDDING CUP PROVIDED.
--- NOTE | 2021-07-31 23:51 | NUR ---
PT RESTING IN BED SNORING NOTED 16 BPM, NO DISTRESS NOTED, PT SLEEPING, OXYGEN SATURATION 93% ON ROOM AIR.
--- NOTE | 2021-08-01 00:37 | NUR ---
PT RESTING IN BED, EYES CLOSED SNORING NOTED, PT ALERT TO RN AT BEDSIDE. PT REPORTS PAIN 7/10, 8MG PO DILAUDID PRN ADMINISTERED. CALL LIGHT IN REACH, NO OTHER CONCERNS OR REQUESTS AT THIS TIME.
--- NOTE | 2021-08-01 01:44 | NUR ---
PT RESTING IN BED SLEEPING MASK COVERING EYES, SNORING NOTED RR 15 BPM. 93% OXYGEN SATURATION ON ROOM AIR, CALL LIGHT IN REACH. NO DISTRESS NOTED.
--- NOTE | 2021-08-01 04:26 | NUR ---
PT HAS SLEPT MOST OF SHIFT ALERT TO STAFF IN ROOM REPORTS PAIN 6-9/10, RASH OVER NECK, CHEST AND BUE IMPROVING WITH BENEDRYL. PT DILAUDID PO IS MANAGING PAIN WITH TYLENOL AND MOTRIN, PT HAS BEEN GIVEN ATIVAN ONCE THIS SHIFT. SHE HAS REMAINED ON ROOM OXYGEN SATURATION 92% AND GREATER. HAD 2 LIQUID BM, VOIDING QUANTITY SUFFICIENT. TOLERATING FULL LIQUIDS, SEVERAL SNACKS PUDDING OVER SHIFT NO NAUSEA.
--- NOTE | 2021-08-01 07:20 | NUR ---
in to see pt. daughter at bedside. hand off report recieved. pt awake alert and oriented x 4. bed rails x 2 up, call light in reach. no other needs or concerns at this time. dressing to midline with small shadowing noted. janet drain no drainage on abd pad noted. draining well at this itme
--- NOTE | 2021-08-01 07:59 | NUR ---
Patient awake watching tv, no distress. Abdominal dressing is CDI. TREY drain to LLQ intact and patent, sarosang drainage noted. Patient reports she slept well last night. IV fluids running per provider order.
--- NOTE | 2021-08-01 08:00 | NUR ---
In to see patient. Patient reports she would like her scheduled medications and pain medications together at 0830 rather than pain meds now and scheduled meds shortly after. Patient's pain tolerable at this time per pt.
--- NOTE | 2021-08-01 08:30 | NUR ---
In to pass morning medications and pain meds. Patient reports her pain is out of control, she is crying and holding her stomach. Dilaudid 8mg po, scheduled tylenol [id number] and 800mg ibuprofen po admin as well for pain. Patient denies itching at this time. Unable to do a full physical assessment at this time due to patient's current pain level. Dressing observed earlier and remains CDI, TREY intact to LLQ. Patient reports her pain is worse today as compared to yesterday. I asked pt if the BUILDING ATTENDANT worked better yesterday for her pain and she reports "NO". Told patient I will return in approx 20 min to ensure pain has reduced.
--- NOTE | 2021-08-01 08:33 | NUR ---
IN TO SEE PT, PT REPORTS PAIN 10/10 TO ABD AT THIS ITME. PT GIVEN SHCEDULED TYLENOL, PRN DILUDID, AND PRN MOTRIN. PT TEARFUL AND STATES " THE PAIN WAS NOT LIKE THIS LAST NIGHT." PT OFFERED PRN BENADRYL, PT REFUSED STATES " I AM NOT ITCHY RIGHT NOW." ALL OTHER SCHEDULED MEDICAITON GIVEN. DAUGHTER REMIANS AT THE BEDSIDE AT THIS TIME. NO OTHER NEED OR CONCERNS AT THIS TIME. BED RAILS X 2 UP. CALL LIGHT IN REACH.
--- NOTE | 2021-08-01 08:44 | NUR ---
PT SOBBING IN BED. MELANIA ZIMMERMAN AND MELANIA DEAN IN ROOM AND BUSY WITH PATIENT. UPDATED WHITE BOARD AND BROUGHT FRESH WATER. CALL LIGHT WITHIN REACH. DAUGHTER IN ROOM. WILL CHECK BACK IN WITH PATIENT SHORTLY.
--- NOTE | 2021-08-01 09:25 | NUR ---
PT CONTINUES TO REPORT 10/10 PAIN TO ABD AND CRYING WITH NO RELIEF FROM PREVIOUS PRN MEDICATIONS GIVEN. CALL MADE TO DR MCCALLUM. PROVIDER AWARE OF PT PAIN OUT OF CONTROL AT THIS ITME. PT UPDATED ON PLAN.
--- NOTE | 2021-08-01 09:30 | NUR ---
IN TO SEE PT. PT UP TO AMBULATE. 2 LAPS COMPLETED AROUND UNIT. ASSISTED PT BACK TO BED. ICE PACK PROVIDED. NO OTHER CO CNERS OR REQUESTS AT THIS TIME, DAUGHTER REAMINS AT THE BEDSIDE. CALL LIGHT IN REACH.
--- NOTE | 2021-08-01 09:47 | NUR ---
DR MCCALLUM IN TO ROUND ON PT, PT UPDATED ON PLAN OF CARE.
--- NOTE | 2021-08-01 10:27 | NUR ---
PT CHATTING WITH DAUGHTER, WHO IS IN ROOM. CALL LIGHT WITHIN REACH, NO FURTHER NEEDS AT THIS TIME.
--- NOTE | 2021-08-01 10:46 | NUR ---
IN TO SEE PT. DRESSING TO ABD REMOVED. STERI-STRIPS INTACT. WITH DRY SANGUINOUS DRAINAGE NOTED. PT TOELRATED WELL. AUTOMATION QA LEAD NOTIFED PT READY FOR SHOWER. NEW BAG IV FLUIDS HUNG. NO OTHER NEEDS OR COCNERNS NOTED. CALL LIGHT IN REACH.
--- NOTE | 2021-08-01 11:07 | NUR ---
Abdominal dressing removed per provider order. Steri strips left intact. LLQ drain dressing removed as well as it was connected to larger abdominal dressing. TREY to LLQ remains intact, patent with sarosang drainage noted-no clots. Patient tolerated well.
--- NOTE | 2021-08-01 11:32 | NUR ---
IN TO SEE PT. PT REPORTS PAIN 05/08 TO ABD. PRN DILUDID 8MG GIVEN PER ORDER. PT REPORTS UP TO RESTROOM X 3. DAUGHTER REMAINS AT BEDSIDE, DAUGHTER LEAVING AT THIS TIME. PT UP TO SHOWER AT THIS TIME. SALINE LOCKED AT THIS TIME. NO TOEHR NEEDS OR COCNERS AT THIS TIME. CALL LIGHT IN REACH.
--- NOTE | 2021-08-01 12:12 | NUR ---
PT FINISHED WITH SHOWER. AMBULATED 2 LAPS AT THIS TIME. TOLERATED WELL. PAIN REMAINS 9/10 AT THIS TIME TO ABD. PT ASSISTED BACK TO BED. IV FLUIDS RESTARTED. LUNCH ORDERED. FRESH ICE PACK PROVIDED. NO OTHER NEEDS OR COCNERNS AT THIS TIME. CALL LIGHT IN REACH.
--- NOTE | 2021-08-01 13:09 | NUR ---
IN TO SEE PT, CALLED TO ROOM. ASSISTED PT TO BSC. EMPTIED TREY DRAIN. WARM BLANKETS PROVIDED. PT CONITINUES TO HAVE PAIN, AWARE. PT CONTINUE TO HAVE ICE PACK IN PLACE. K-PAD IN PLACE TO PT BACK. PT SELF REPOSITIONED. FRESH WATER ICE WATER PROVIDED PER REQUEST. NO OTHER NEEDS OR REQUESTS AT THIS TIME.
--- NOTE | 2021-08-01 13:22 | NUR ---
PT WATCHING TV IN BED. DAUGHTER IN ROOM. NO FURTHER NEEDS AT THIS TIME. CALL LIGHT WITHIN REACH.
--- NOTE | 2021-08-01 14:37 | NUR ---
in to see pt, aseessment and medications dur. incision to mid-abd with steri-strips intact, dry sanguinous drainage noted. janet drain remians secured with suture at this time, no drainage noted. pt reports pain 9/10 to abd. prn diludidi and motrin given per order. daughter at bedside. no other needs or concerns at this time. call light in reach.
--- NOTE | 2021-08-01 15:27 | NUR ---
IN TO SEE PT. PT UP TO USE BSC. PT AMBULATING HALLWAY, 2 LAPS. ASSISTED PT BACK TO BE. FRESH ICE PACK PROVIDED. NO OTHER NEEDS OR COCNERNS AT THIS TIME. BED RAILS X 2 UP. DAUGHTER AT BEDSIDE. CALL LIGHT IN REACH.
--- NOTE | 2021-08-01 16:23 | NUR ---
in to check on pt. pt reports she has been up moving around. pt reports pain is 9/10. urine output adequate, urine clear, 700mls. no othe needs or cocners at this time. call [employer] in reach.
--- NOTE | 2021-08-01 17:38 | NUR ---
IN TO CHECK ON PT. PT REPORTS PAIN 10/10 TO ABD. PT 8MG DILAUDID, PER ORDER. PT SITTING IN BED EATING DINNER AND WATCHIGN TV. DAUGHTER AT THE BEDSIDE. FRESH ICE PACK PROVIDED. TREY DRAIN EPTIED 60MLS. I AND O'S COMPLETED. VS OBTAINED. NO OTHER NEEDS OR CONERS AT THIS TIME. CALL LIGHT IN REACH.
--- NOTE | 2021-08-01 18:05 | NUR ---
pt continues to high episodes of high pain 8-910 with 1 episode of increased anxiety accompanied by pain. pt up ambulating hallway x4, 2 laps each time. pt tolerating it well. pt up independnetly to the bsc. daughter at bedside most of the day. pain mangament with ice packs, position change, shower, tylenol, motrin, and dilaudid, breathing techniques. ativan discontinued and new order for hydroxizine. pt eating well, continues to toelrate full liquid diet. adequate urine output and fluid intake. midline incisiion removed steri-strips intact with dry sanguinous drainage noted. janet drain draining ss drainage, continues to decrease.
--- NOTE | 2021-08-01 18:43 | NUR ---
ASSISTED PT IN AMBULATING DOWN THE MEDINA AND AROUND THE NURSES STATIONS. PT SEEMED TO BE IN PAIN BY THE SECOND (LAST) LAP, BUT WAS STEADY ON FEET THROUGHOUT THE WHOLE TIME. CALL LIGHT WITHIN REACH, NO FURTHER NEEDS AT THIS TIME. DAUGHTER IN ROOM.
--- NOTE | 2021-08-01 19:10 | NUR ---
SHIFT REPORT RECEIVED FROM ERASMO VELÁZQUEZ. PT RESTING IN BED. IV FLUIDS INFUSING PER ORDER. IN RROM TO TALK WITH PT.
--- NOTE | 2021-08-01 20:10 | NUR ---
SCHEDULED MED PROVIDED. PT REPORTS 04/07 ABD PAIN. ICE PACK PROVIDED. NO OTHER NEEDS. ICE WATER PROVIDED. CALL LIGHT IN REACH.
--- NOTE | 2021-08-01 21:30 | NUR ---
ASSESSMENT COMPLETED. GCS 15, A&O X4. PT HAS KPAD TO BACK, ICE PACK TO ABD. LUNGS CLEAR, HEART TONES REGULAR. ABD SOFT, TENDER, PT STATES SEVERELY DISTENDED, BOWEL TONES ACTIVE. CMS INTACT. IV WNL, CDI, FLUSHED WELL. MIDLINE INCISION WNL, DRY STERI STRIPS INTACT. LLQ TREY ENTRY MANAGER, WNL. 50ML SS OUTPUT. PT REPORTS 9/10 ABD PAIN, PRN PAIN MEDS PROVIDED. ICE WATER AND SNACKS PROVIDED. NEW ICE PACK PROVIDED. NO OTHER NEEDS. CALL LIGHT IN REACH.
--- NOTE | 2021-08-01 22:00 | NUR ---
PT REPORTS 9/10 BACK PAIN AND REQUESTS SOMETHING TO HELP SLEEP. PRN BACK PAIN MED AND SLEEP MEDS PROVIDED. NO OTHER NEEDS. CALL LIGHT IN REACH.
--- NOTE | 2021-08-02 00:01 | NUR ---
PT RESTING IN BED. CALL LIGHT IN REACH.
--- NOTE | 2021-08-02 02:30 | NUR ---
SCHEDULED MED PROVIDED, PT REPORTS 10 ABD PAIN. ICE WATER PROVIDED.NO OTHER NEEDS. CALL LIGHT IN REACH.
--- NOTE | 2021-08-02 03:28 | NUR ---
PT REPORTS 8/10 SHARP ABD PAIN, PRN PAIN MEDS PROVIDED. TREY EMPTIED OF 60ML SS OUTPUT. MIDLINE WNL. IV WNL, IV FLUIDS INFUSING PER ORDER. ICE WATER PROVIDED. NO OTHER NEEDS. CALL LIGHT IN REACH.
--- NOTE | 2021-08-02 06:16 | NUR ---
VS AND I&O COMPLETED. PT REPORTS 04/07 ABD PAIN, PRN PAIN MED PROVIDED. CLEAN GOWN AND SHEETS, WARM BLANKETS PROVIDED. NO OTHER NEEDS. CALL LIGHT IN REACH.
--- NOTE | 2021-08-02 08:10 | NUR ---
IN TO SEE PT, AM MEDICATIONS AND ASSESSMENT DUE. PT SITITNG UP IN BED ALERT AND ORIETED X 3. MID LINE INCISION WITH STERI-TIPS INTACT, DRY SS DRAINGAE NOTED. PT UPT BSC AND BACK TO BED PT REPORTS PAIN 8/10 TO ABD. PT GIVEN SCHEDULED TYLNOL, PRN FLEXERIL, AND PRN HYDROXIZINE PER PT REQUEST. TREY DRAINING WELL. DAUGHTER AT BED SIDE. NO OTHER NEEDS OR REQUESTS AT THIS TIME. PT SITTING UP IN BED, BED RAILS X 2 UP. CALL LIGHT IN REACH.
--- NOTE | 2021-08-02 09:58 | NUR ---
IN TO CHECK ON PT. PT REPORTS PAIN 7/10 TO ABD. PT GIVEN PRN DILAUDID 8MG AND 600MG MOTRIN PER PT REQUEST. TREY DRAIN EMPTIED, 70ML SS DRAINAGE. PT UP TO AMBULATE HALLWAY, 3 LAPS COMPLETED, TOLERATED VERY WELL. NO SOB OR GUARDING OF ABD NOTED DURING WALK. PT SMILING AND LAUGHING WHILE WALKING THIS AM. ASSISTED PT BACK TO BED, WARM BLANKET AND FRESH ICE WATER PROVIDED PER PT REQUEST. NO OTHER NEEDS OR COCNERS AT THIS ITME. PT LAYING IN BED WITH HOB ELEVATED WATHCING TV, DAUGHTER AT BEDSIDE. CALL LIGHT IN REACH.
--- NOTE | 2021-08-02 12:15 | NUR ---
Patient sitting up in bed watching tv, no distress. Patient reports her incisional pain is 7/10, which has improved. TREY drain intact to LLQ, sarosang drainage noted. Midline incision closed, steri strips intact, no new drainage noted. Provided patient with ice pack per her request. IV fluids infusing per provider order. Lunch ordered at this time. Personal supplies and call light within reach.
--- NOTE | 2021-08-02 12:31 | NUR ---
IN TO SEE PT, DR MCCALLUM ROUNDING ON PT. PT UNDATED ON PLAN. MD REMOVED TREY REAL AT THIS TIME. PT TOLERATED WELL. IVF DISCONTINUED, IV TO RFA SALINE LOCKED AT THIS TIME. FRESH ICE WATER PROVIDED. DAUGHTER AT BEDSIDE AT THIS TIME. NO OTHER NEEDS OR COCNERNS AT THIS TIME. PT SITTING UP IN BED, BED RIALS X 2 UP. CALL LIGHT IN REACH.
--- NOTE | 2021-08-02 13:06 | NUR ---
IN TO SEE PT, PT SITKELSIE GUP IN BED, HOB ELEVATED WATCHING TV. DIETARY IN WITH LUNCH. PT REPORTS PAIN TO ABD 7/10, 10MG OXYCODONE GIVEN PER PT REQUEST. PT AGREEABLE TO WALKING AFTER LUNCH. PT OPEN TO SHOWERING LATER THIS AFTERNOON. NO OTHER NEEDS OR COCNERS AT THIS TIME. CALL LIGHT IN REACH.
--- NOTE | 2021-08-02 14:08 | NUR ---
Vistaril 50mg po admin for anxiety.
--- NOTE | 2021-08-02 14:30 | NUR ---
IN TO SEE PT, ASSESSMENT DUE. PT UP IN THE SHOWER. LINENS CHANGHED. WARM BLAKETS AND FRESH ICE PACK PROVIDED. PT STATES HER PAIN " IS NOT TOO BAD." PT LAYNG IN BED AT THIS ITME WITH HOB ELEVATED WATCHGreenPal TV. NO OTHER NEEDS OR COCNERNS AT THIS TIME. CALL LIGHT IN REACH.
--- NOTE | 2021-08-02 15:39 | NUR ---
IN TO SEE PT, VSS OBTAINED. PT ALERT [place] WTCHING TV. HOB ELEVATED. NO NEEDS OR REQUESTS AT THIS TIME. CALL [employer] IN REACH.
--- NOTE | 2021-08-02 16:26 | NUR ---
IN TO SEE PT. PT REPORTS PAIN 05/08 TO ABD. PRN FLEXERIL AND MORTRIN GIVEN PER REQUEST. DAUGHTER AT THE BED SIDE. PT SITTING UP WITH HOB ELEVATED WATCHING TV. NO OTHER NEEDS OR COCNERS AT THIS TIME. CALL [facility] IN REACH.
--- NOTE | 2021-08-02 17:30 | NUR ---
PT IS SQUIRMING IN BED AND GROANING. PT SAYS THEY ARE IN PAIN. MELANIA DEAN AND ERASMO NOTIFIED. CALL LIGHT WITHIN REACH, NO FURTHER NEEDS AT THIS TIME.
--- NOTE | 2021-08-02 17:59 | NUR ---
IN TO SEE PT, PT C/O INCREASED PAIN 05/08. NEW ICE PACK PROVIDED, ENCOUAGRED PT TO DO BREATHING TECHNIQUES. PT IN BED WITH HOB ELEVATED, DAUGHTER AT BEDSIDE. PT THINKS SHE MAY HAVE OVER DONE IT TODAY WALKING. PT ALSO USING K-DOMINIQUE IN ADDITION TO OTHER INTERVENTIONS. WILL CONTINUE TO MONITOR.
--- NOTE | 2021-08-02 18:07 | NUR ---
IV FLUIDS DISCONTINUED, IV SALINE LOCKED. PT UP AMBULATING TOTAL 7 LAPS DURING SHIFT. PT UP TO SHOWER THIS AFTERNOON. DILAUDID DISCONTINUED, OXYCODONE PRN Q6 STARTRD THIS AFTERNOON. ADVANCED TO REGULAR DIET. TREY DRAIN REMOVED THIS AM BY PROVIDER. ADEQUATE FLUID INTAKE AND OUTPUT. RASH R/T MORHPHINE SULFATE USE RESOLVED, BENADRYL DISCONTINUED.
--- NOTE | 2021-08-02 18:45 | NUR ---
IN TO SEE PT. PT REPORTS PAIN TO ABD. 06/07. PT GIVEN PRN 10MG OXYCODONE FOR PAIN MGMT. PT LAYING IN BED ON K-DOMINIQUE WITH ICE PACK ON ABD. NO GUARDING NOTED. PT WITH FACIAL GRIMACING AND APPEARS TENSE AT THIS TIME. NO OTHER NEEDS OR REQUESTS AT THIS ITME. DAUGHTER AT THE BEDSIDE. CALL LIGHT IN REACH.
--- NOTE | 2021-08-02 19:56 | NUR ---
RECEIVED REPORT FROM DAY SHIFT RN. PATIENT IS RESTING IN BED WATCHING TV. PATIENT DENIES ANY NEEDS. CALL LIGHT IN REACH.
--- NOTE | 2021-08-02 20:22 | NUR ---
PATIENT ASSEASMENT COMPLETED. VITALS TAKEN AND RECORDED. INTAKE AND OUTPUT RECORDED. PATIENTS ABD IS SOFT AND DISTENDED. BOWEL TONED ACTIVE. PATIENT RATES PAIN AT AN 6/10. PRN AND SCHEDULED PAIN MEDICATION GIVEN PER ORDER. PATIENTS SCHEDULED MEDICATIONS GIVEN PER ORDER. PATIENTS IV IS SL AND IV FLUSHES WELL. PATIENTS DRESING ON ABD IS C/D/I, OLD DRY DARAINGE NOTED. PATIENTS ICE WATER REFILLED. NO FURTHER NEEDS NOTED. CALL LIGHT IN REACH.
--- NOTE | 2021-08-02 22:52 | NUR ---
PRN MOTRIN GIVEN PER ORDER FOR 8/10 PAIN IN HER BACK THAT IS CHRONIC. PATIENT PROVIDED WITH FRESH ICE WATER AND WARM BLANKET. PATIENTS HAT IN TOILET EMTPIED. NO FURTHER NEEDS NOTED. CALL LIGHT IN [facility].
--- NOTE | 2021-08-03 00:45 | NUR ---
PT UTILIZES CALL LIGHT, REQUESTS PRN PAIN MEDICATION. PRN ADMINISTERED, SEE EMAR. PT RATES PAIN 9.5/10 TO ABD. STATES THAT THE OXYCODONE IS NOT MAKING IT THE FULL 6 HOURS. PT OFFERED ICE PACK OR WARM COMPRESS, DECLINES. CALL LIGHT AND PERSONAL ITEMS IN REACH. PT DECLINES FURTHER NEEDS AT THIS TIME.
--- NOTE | 2021-08-03 02:35 | NUR ---
PATIENTS SCHEDULED MEDICATIONS GIVEN PER ORDER. PATIENTS ICE WATER REFILLED. PATIENT DENIES ANY FURTHER NEEDS. CALL LIGHT IN REACH.
--- NOTE | 2021-08-03 04:54 | NUR ---
PATIENT GIVEN PRN MOTRIN FOR 9/10 PAIN IN HER ABD/BACK. PATIENTS INTAKE AND OUTPUT RECORDED. VITALS RECORDED. PATIENTS ICE WATER REFILLED. PATIENT DENIES ANY NEEDS. CALL LIGHT IN REACH.
--- NOTE | 2021-08-03 06:48 | NUR ---
PATIENT CALLED AND REQUESTED PRN PAIN MEDICATION. PATIENT RATES PAIN AT A 10/10 IN HER BACK. PATIENT GIVEN SCHEDULED TYLENOL AND PRN PAIN MEDICATION PER ORDER. PATIENT DENIES ANY FURTHER NEEDS AT THIS TIME. CALL LIGHT IN REACH.
--- NOTE | 2021-08-03 08:50 | NUR ---
Visaril 50mg po admin for anxiety.
--- NOTE | 2021-08-03 11:05 | NUR ---
PATIENT SITTING UP IN BED, DAUGHTER IN ROOM. VITALS AND I&O'S CHARTED. PATIENT REFUSED SHOWER SHE WANTS TO GO HOME. CALL LIGHT IN REACH. NO FURTHER NEEDS AT THIS TIME.
--- NOTE | 2021-08-03 11:10 | NUR ---
Patient in bed resting, respirations even and non labored. Patient eager to gome home. Patient reports her pain remains a 7/10 at the incision site. Patient has been up ambulating, tolerating her diet and reports she is ready to go home. No current needs.
--- NOTE | 2021-08-03 12:13 | NUR ---
PATIENT UP TO BATHROOM TO VOID. PATIENT GIVEN 10MG OXYCODONE FOR 9/10 ABDOMINAL PAIN.
--- NOTE | 2021-08-03 13:48 | NUR ---
Fresh water provider. Patient reports she is doing well. Abdominal incision healing well, closed with steri strips. Patient denies nausea. Patient hoping to go home today. No current needs.
--- NOTE | 2021-08-03 13:52 | NUR ---
PATIENT SITTING UP IN BED, DAUGHTER IN ROOM. VITALS AND I&O'S CHARTED. FRESH ICE PACKS GIVEN. CALL LIGHT IN REACH. NO FURTHER NEEDS AT THIS TIME.
--- NOTE | 2021-08-03 14:30 | NUR ---
PT ALERT, ORIENTED AND SIFTING THROUGH A MTN OF PAPERWORK. PT HOPES TO DC TODAY. WAITING FOR DR TO COME IN. GAVE BLESSING, DAUGHTER IN WITH PT. WILL FOLLOW NEEDED
--- NOTE | 2021-08-03 16:20 | NUR ---
vistaril 50mg po and motrin 600mg po admin for reports of 7/10 abd pain. Fresh ice packs provided per pt request. No further needs.
[2021-08-03] MEDS ORDERED: OXYCODONE HCL5 MG PO (17:21)
[2021-08-03] MEDS ORDERED: ACETAMINOPHEN500 MG PO (17:21)
[2021-08-03] MEDS ORDERED: IBUPROFEN600 MG PO (17:21)
[2021-08-03] MEDS ORDERED: HYDROXYZINE PAM25 MG PO (17:22)
--- NOTE | 2021-08-05 13:37 | DS ---
[facility] [address], [place] [address] Signed ADMISSION DATE: 07/30/2021 DISCHARGE DATE: 08/03/2021 REASON FOR ADMISSION: This 56-year-old white woman has long-standing diverticular disease, but in December of 2020, suffered severe left-sided ischemic colitis predominantly at the splenic flexure. She subsequently developed strictures, which were unresponsive to adequate endoscopic balloon dilation therapy. She is admitted at this time to undergo extended left colectomy to incorporate the strictured areas of splenic flexure as well as diverticular change of the sigmoid. PERTINENT PHYSICAL EXAMINATION: GENERAL: Showed a somewhat obese white woman, who looks to be in no acute distress. CHEST: Clear. HEART: Regular without murmur. ABDOMEN: Mildly distended. She has large abdominoplasty scar inferiorly and more proximal midline scars from laparoscopic interventions. HOSPITAL COURSE: On July 30, 2021, she underwent a midline laparotomy with extended left hemicolectomy including much of the transverse colon all the sigmoid and down to the mid rectum. The rotation of the mobilized right colon allowed for a tension-free anastomosis in the site and configuration with closure of the mesentery and maintenance of the small bowel to the right of the mesenteric fold of the remaining left colon. Concurrent appendectomy was performed and omental pedicle graft placed in the region of the anastomosis. Postoperatively, she had severe pain on the night of procedure requiring IV ketamine rescue. It was clear she has opiate tolerance related to long-standing use of Vicodin 2 tabs 3 times a day long-standing for back pain. A morphine DIRECTOR STRATEGIC ACCOUNT MANAGEMENT was initiated despite an initial plan for an opiate free recovery, but even this was only marginally beneficial. Other interventions including IV Toradol, IV Tylenol, IV Ativan, and maintenance of her baseline medications were all employed to minimize her incisional pain. She had prompt recovery of her bowel function with bowel movements on postoperative day #1, was advanced in her diet to full liquids from a clear liquid diet on the night of surgery. It ultimately hydroxyzine 25 to 50 mg p.o. q.6 hour was added to diminish her anxiety, which was overall helpful in management for pain and psychologic distress. By day of discharge, she is ambulating well, has reasonable pain control program including oxycodone, plain Tylenol, Motrin, and her other medications for back pain. Electronically Signed By: SAMY MCCALLUM MD 08/05/21 1337 PATIENT NAME: DUSTIN BISHOP DISCHARGE SUMMARY DATE OF : 67 REPORT #: [id number] PHYSICIAN: SAMY MCCALLUM MD PCP: KRISTOPHER LOVE PA-C REPORT IS CONFIDENTIAL AND NOT TO BE RELEASED WITHOUT AUTHORIZATION [facility] [address] [place] [id number] Signed She has good bowel function. The incision is healing well. The drain that was placed in the pelvis has been removed. DISCHARGE MEDICATIONS: 1. Ibuprofen 600 mg p.o. q.6 hours as needed for pain #60, refill 2. 2. Oxycodone plain 5 mg tablets two tablets p.o. q.6 hours as needed for severe pain #30, no refill. 3. Tylenol plain 1000 mg p.o. q.6 hours as needed for pain #60, refill 3. 4. Hydroxyzine 25 mg caplets 1 to 2 p.o. q.6 hours as needed for anxiety, quantity #30, refill 1. 5. She will continue usual medication of Flexeril 10 mg p.o. t.i.d. for muscle spasm. 6. Multivitamin one one p.o. daily. 7. Vitamin B6 folate capsule one cap p.o. daily. 8. Vitamin D tablet one p.o. daily. 9. Magnesium oxide 200 mg tablet p.o. t.i.d. 10. Lunesta 3 mg one tablet p.o. at bedtime as needed for sleep. 11. Nexium 20 mg p.o. q.a.m. for long-standing heartburn. She will discontinue her lisinopril 2.5 mg daily, Prozac 10 mg 2 tablets p.o. daily, and hold and advance her Vicodin (hydrocodone/Tylenol 7.5/325 one p.o. q.4-6 hours as needed for back pain until time that the oxycodone has been completed). DISCHARGE DIAGNOSES: 1. Symptomatic colonic strictures at splenic flexure and left transverse colon related to ischemic colitis (December 2020). 2. Status post extended left hemicolectomy with side-to-end transverse coloproctostomy with mobilization of right colon, appendectomy, omental pedicle graft on July 30, 2021. 3. Probable anxiety disorder. 4. Opiate dependency and tolerance related to long-standing back pain therapy. 5. History of gastroesophageal reflux. 6. Chronic back pain. FOLLOWUP PLAN: She is return to see me in approximately 4 weeks. She is requested to walk on a daily basis and lift no more than 20 pounds for the next 4 weeks. She will need between 2 and 4 weeks off from her work depending on her recuperation course. Samy Mccallum MD Electronically Signed By: SAMY MCCALLUM MD 08/05/21 1337 PATIENT NAME: DUSTIN BISHOP DISCHARGE SUMMARY DATE OF : 67 REPORT #: [id number] PHYSICIAN: SAMY MCCALLUM MD PCP: KRISTOPHER LOVE PA-C REPORT IS CONFIDENTIAL AND NOT TO BE RELEASED WITHOUT AUTHORIZATION [facility] [address] [facility] [place], [place] [address] Signed /[facility] /[id number] cc: Dr. Avila Hurt MD Copies: JOY HURT MD ~ Electronically Signed By: SAMY MCCALLUM MD 08/05/21 1337 PATIENT NAME: DUSTIN BISHOP DISCHARGE SUMMARY DATE OF : 67 REPORT #: [id number] PHYSICIAN: SAMY MCCALLUM MD PCP: KRISTOPHER LOVE PA-C REPORT IS CONFIDENTIAL AND NOT TO BE RELEASED WITHOUT AUTHORIZATION
--- NOTE | 2021-08-05 13:37 | OR ---
[facility] [address], [place] [address] Signed DATE OF OPERATION: 07/30/2021 SURGEON: Samy Mccallum MD PREOPERATIVE DIAGNOSES: 1. Ischemic stricture of left transverse and splenic flexure. 2. Severe ischemic colitis in December 2020. 3. Extensive sigmoid and left-sided diverticular disease. POSTOPERATIVE DIAGNOSES: 1. Ischemic stricture of left transverse and splenic flexure. 2. Severe ischemic colitis in December 2020. 3. Mild chronic appendicitis. PROCEDURES: 1. Extended left colectomy (proximal rectum, sigmoid left and transverse colon resection) with side-to-end coloproctostomy. 2. Mobilization of splenic flexure. 3. Omental pedicle graft application. 4. Appendectomy. ANESTHESIA: General endotracheal, Mariaelena Bueno CRNA, including postoperative tap block and rectus sheath block. INDICATIONS: This 56-year-old white woman, who was a former patient of Dr. Joy Hurt and suffered episode of rather severe left-sided ischemic colitis in December of 2020. She did recover from this, but was noted to have pain in the left upper quadrant. She has had history of diverticulitis problems in the past including diverticulitis treatment. Colonoscopy was performed, which showed quite clearly two ischemic strictures of the colon, one in the transverse, the other in the splenic flexure area. These were balloon dilated, but despite efforts at improvement of colonic stricture, she continues to have postprandial bloating, fullness, intolerance of regular diet and so on. She has not had recent acute diverticulitis, but has had diverticular problems in the past in the area of the sigmoid colon. Her options of management have been reviewed including repeat colonoscopy with dilation or steroid injection versus resection, she strongly prefers the latter. The risks of bleeding, infection, anastomotic failure, and need for other indicated procedure was Electronically Signed By: SAMY MCCALLUM MD 08/05/21 1337 PATIENT NAME: DUSTIN BISHOP OPERATIVE REPORT DATE OF : 67 REPORT #: [id number] PHYSICIAN: SAMY MCCALLUM MD PCP: KRISTOPHER LOVE PA-C REPORT IS CONFIDENTIAL AND NOT TO BE RELEASED WITHOUT AUTHORIZATION [facility] [address], [place] [address] Signed reviewed in detail. She understands and wished to proceed. FINDINGS: She had a sizable scars in the past from abdominoplasty and other interventions. Midline incision was used and minimization of the incision as best could be was undertaken. She had extensive diverticular changes of the sigmoid and left colon. She had a very redundant sigmoid. The rectum was normal. Endomark tattoo dye to colonic mucosa indicating sites of stricture was quite helpful. The stricture site was in the splenic flexure itself as well as the proximal transverse colon. Wide resection of the transverse colon including the ischemic stricture sites as well as the left colon and sigmoid was accomplished. Dedicated splenic flexure mobilization was required as was hepatic flexure mobilization, which allowed a clockwise rotation of the remaining colon to allow for tension-free transverse coloproctostomy in a tension-free way. This displaced the appendix to the left upper quadrant essentially. There did appear to be some mild chronic appendiceal inflammation, certainly not severe, but given the ambiguity of the position of the appendix for future reference, appendectomy was deemed appropriate. Additionally, an omental pedicle graft was transposed to the pelvis in the region of the anastomosis. There was surgical absence of the gallbladder and surgical absence of pelvic organs. Examination of the resected specimen, which was quite lengthy in aggregate did show the area of stricturing not far from the Endomark tattoo dye, this was marked with suture for pathologist's reference. There is no evidence of colitis proper nor sign of neoplasm or polyp, only diverticular changes. DESCRIPTION OF PROCEDURE: The patient was brought to the operating room, given a general endotracheal anesthetic. Our local ERAS protocol was followed so as to minimize opiate use perioperatively. Echols catheter was placed. Inspection of the abdomen showed no palpable mass. A low transverse abdominoplasty scar was noted as was a periumbilical scar. There was not much remaining umbilical configuration related to the prior surgery. After placement of Echols catheter, the abdomen was prepared with chlorhexidine solution and draped sterilely. Notably, the patient underwent a full bowel prep, IV antibiotics and so on as well as oral antibiotics. An incision was made just cephalad to the umbilicus and extended distally a bit, and later required extension so as to provide safe and adequate mobilization of splenic flexure. Some remaining abdominal wall pannus was noted. Upon entry to the abdomen, there appeared to be some speckling of the peritoneal cavity, likely from prior tattoo application. The Bookwalter retractor was affixed to the table. The colon was palpated on the left side and found to have extensive diverticular changes and a very redundant sigmoid colon. There was surgical absence of the pelvic organs. The transverse colon could be brought into view. The splenic flexure was Electronically Signed By: SAMY MCCALLUM MD 08/05/21 1337 PATIENT NAME: DUSTIN BISHOP OPERATIVE REPORT DATE OF : 67 REPORT #: [id number] PHYSICIAN: SAMY MCCALLUM MD PCP: KRISTOPHER LOVE PA-C REPORT IS CONFIDENTIAL AND NOT TO BE RELEASED WITHOUT AUTHORIZATION [facility] [address], [place] [address] Signed significantly high in the abdomen. On that basis, the incision was extended a bit superiorly. A Bookwalter retractor was affixed to the table. The small bowel was packed to the right side of the abdomen. The left colon was mobilized by incising the white line of Toldt and bluntly mesentery towards the midline. Similar dissection was taken inferiorly and rectum was identified as the coalescence of the tinea and that site was marked with a suture. Attention was turned towards the transverse colon, which was relatively mobile and easily brought into view with the exposure provided. The omentum was freed from the transverse colon and quite noticeable was the Endomark tattoo dye indicative of the area of stricture. One of the stricture areas was easily palpable, the other not so much. Transverse colon was freed from the omentum preserving the mesocolon of the transverse colon. A rather lengthy mobilization of the splenic flexure was undertaken using primarily blunt and electrocautery dissection and application of clips as necessary. Though, the splenic flexure was high, maintenance of a small incision as possible as undertaken, ultimately freeing the splenic flexure of the colon inferiorly. The mesentery to the colon extending from the right transverse colon beyond the splenic flexure to the left colon and the rectosigmoid was ultimately accomplished, though it took a bit of time to do so to the incision afforded. Sequential division of the colonic mesentery was undertaken with application of hemostats and ligature of the vascular pedicles with #0 silk ties. An area of the mid rectum was designated as appropriate for future anastomosis. Attention was then turned towards the transverse colon. Transillumination of the transverse mesocolon showed multiple branches of fluid of vascular supply. The right transverse colon was deemed most appropriate for division based on that and location of the Endomark tattoo dye. The mesentery there was incised and secured with hemostats more fully now that the colon was completely and totally mobilized. Ultimately, the right transverse colon was transected with a DANA stapling device and the bulk of the colon distalward elevated out of the abdomen. The right angle bronchus clamp was applied to the upper to mid rectum as was another clamp in the rectal stump transected with sharp dissection. The specimen was passed off the table and ultimately photographed, opened, and the strictured area identified, but not as profound as previously noted. Multiple diverticula were noted, but no evidence of neoplasm or polyps. Much of the remaining transverse colon could be mobilized towards the pelvis; however, more dedicated mobilization of hepatic flexure was then required. This was accomplished, blunt and electrocautery dissection, ultimately rotating the right colon clockwise and ultimately allowing it to rest without tension to the pelvis to allow for Electronically Signed By: SAMY MCCALLUM MD 08/05/21 1337 PATIENT NAME: DUSTIN BISHOP OPERATIVE REPORT DATE OF : 67 REPORT #: [id number] PHYSICIAN: SAMY MCCALLUM MD PCP: KRISTOPHER LOVE PA-C REPORT IS CONFIDENTIAL AND NOT TO BE RELEASED WITHOUT AUTHORIZATION [facility] [address] [place] [id number] Signed coloproctostomy. The small bowel, which had been packed to the right side of the abdomen was adjusted and then re-packed and plans made for anastomosis. A side-to-end coloproctostomy was then undertaken in two-layer technique of interrupted 3-0 silk suture. The prep was noted to be good upon opening the bowel, and there was no leakage of enteric contents. Once the anastomosis was complete, gown and gloves were changed for all personnel, as were the instruments. Irrigation was undertaken with warm saline. At this point, the cecum lie in the upper abdomen essentially to the left upper quadrant. On that basis close inspection of the appendix was undertaken. It had mild chronic inflammation and appendectomy was deemed appropriate, particularly given the aberrant position of the newly positioned cecum. The mesoappendix secured with hemostats, divided, and secured with silk ties. The base of the appendix was crushed and milked distally and the base of the appendix ligated with a 2-0 Vicryl tie. The appendix was amputated, stump was cauterized and inverted with two separate interrupted 2-0 Vicryl sutures. Through the left lower quadrant incision, a 7 mm flat Wily drain was manipulated into the pelvis, not far from the anastomosis. Mesenteric defect in the lower abdomen was secured with interrupted 3-0 silk sutures. The small bowel was allowed to return to its natural anatomic configuration. The omentum, which was rather extensive was then manipulated as an omental pedicle graft to the area of the anastomosis in the pelvis. Part of the omentum was then used to cover the abdominal viscera. The midline fascia was reapproximated with running bidirectional #1 PDS suture in a running configuration. Note was made of some periumbilical braided nonabsorbable suture suggestive of T[place]de[place], those were left in situ except for one that was removed. Irrigation was undertaken of the subcutaneous tissue. Hemostasis was assured and the skin closed with running subcuticular 3-0 Vicryl. Steri-Strips were applied as was an Acticoat dressing. The drain was attached to bulb suction and Acticoat applied to the exit site. Echols catheter was allowed to remain in place. Following this, a tap block and rectus sheath block was undertaken by the architectural designer without problem. The patient was ultimately extubated and transferred to the recovery room in good condition, having suffered no complications. Sponge, needle, and instrument counts reported as correct x3. The operation was rather prolonged, lasting from 08:00 a.m. to 12 noon, but was accomplished safely. Electronically Signed By: SAMY MCCALLUM MD 08/05/21 1337 PATIENT NAME: DUSTIN BISHOP OPERATIVE REPORT DATE OF : 67 REPORT #: [id number] PHYSICIAN: SAMY MCCALLUM MD PCP: KRISTOPHER LOVE PA-C REPORT IS CONFIDENTIAL AND NOT TO BE RELEASED WITHOUT AUTHORIZATION [address] [place], [place] [address] Signed MD CHINO Fabian/MODL /[id number] cc: Joy Hurt MD Copies: JOY HURT MD ~ Electronically Signed By: SAMY MCCALLUM MD 08/05/21 1337 PATIENT NAME: DUSTIN BISHOP OPERATIVE REPORT DATE OF : 67 REPORT #: [id number] PHYSICIAN: SAMY MCCALLUM MD PCP: KRISTOPHER LOVE PA-C REPORT IS CONFIDENTIAL AND NOT TO BE RELEASED WITHOUT AUTHORIZATION
== END 2021-08-03 17:55 | disposition home or self-care (01) | DRG 330 ==
LOC: DSVR 07-30 05:45 → MS 07-30 05:45
PROVIDERS: ADMIT Surgery; ATTEND Surgery
PROC: 0DTJ0ZZ Resection of Appendix, Open Approach (ICD-10-PCS; 2021-07-30)
PROC: 0DTG0ZZ Resection of Left Large Intestine, Open Approach (ICD-10-PCS; principal; 2021-07-30 06:45)
PROC: 0WUF07Z Supplement Abdominal Wall with Autologous Tissue Substitute, Open Approach (ICD-10-PCS; 2021-07-30 06:45)
DX: K57.32 Diverticulitis of large intestine without perforation or abscess without bleeding (principal); K55.1 Chronic vascular disorders of intestine; F11.20 Opioid dependence, uncomplicated; F41.9 Anxiety disorder, unspecified; G89.29 Other chronic pain; M54.9 Dorsalgia, unspecified; Z88.8 Allergy status to other drugs, medicaments and biological substances; Z88.1 Allergy status to other antibiotic agents; E66.9 Obesity, unspecified; Z68.30 Body mass index [BMI] 30.0-30.9, adult
CPT/HCPCS: 00790; 76942; 80053; 85025; 94760; 94762; A9270; J0131; J0330; J0690; J0694; J1100; J1200; J1644; J1885; J2001; J2060; J2250; J2270; J2300; J2405; J2704; J2795; J3010; J3475; J7121; Q0177

== ENCOUNTER 2021-12-25 00:46 | Inpatient (IN) | payer OTHER ==
[~2021-12-25] VITALS: Ht 162.6 cm; Wt 79.4 kg
[~2021-12-25 00:46] MED LIST changes: +ACETAMINOPHEN500 MG PO; +HYDROCODON-ACE1 EA11 PO; +HYDROXYZINE PAM25 MG PO; +LUNESTA3 MG PO; +MAGNESIUM250 M1 PO; +MELATONIN10 M2 PO; +NEXIUM 24HR20 M2 PO; +NUFOLA CAPSULE1 EAC1 PO; +OSTERA TABLET1 EACH PO; +VENLAFAXINE HC225 MG PO; +ZESTORETIC 10-1 EACH PO
--- OUTSIDE RECORDS SUMMARY | 2021-12-25 00:48 | XMS ---
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 EYuliana VISIT COUNT (12 MO.) 2 HUSEYIN Ochoa TOTAL 2 NOTE: Visits indicate total known visits. ED/UCC VISIT TRACKING (12 MO.) 12/25/2021 00:47 HUSEYIN Mathews [place] TYPE: Emergency COMPLAINT: - ABD PAIN 01/11/2021 15:43 HUSEYIN Mathews [place] TYPE: Emergency COMPLAINT: - SOB,LOWER BACK PAIN INPATIENT VISIT TRACKING (12 MO.) 07/30/2021 05:45 HUSEYIN Mathews [place] TYPE: Medical Surgical COMPLAINT: - LEFT SIGMOID COLECTOMY DIAGNOSES: - Opioid dependence, uncomplicated - Obesity, unspecified - Dorsalgia, unspecified - Other vascular disorders of intestine - Allergy status to other drugs, medicaments and biological substances - Personal history of other diseases of the digestive system - Obesity, unspecified - Anxiety disorder, unspecified - Other chronic pain - Body mass index [BMI] 30.0-30.9, adult - Anxiety disorder, unspecified - Other partial intestinal obstruction - Allergy status to other drugs, medicaments and biological substances - Diverticulitis of large intestine without perforation or abscess without bleeding - Other chronic pain - Opioid dependence, uncomplicated - Diverticulitis of large intestine without perforation or abscess without bleeding - Dorsalgia, unspecified - Chronic vascular disorders of intestine - Allergy status to other antibiotic agents - Allergy status to other antibiotic agents - Body mass index [BMI] 30.0-30.9, adult - Chronic vascular disorders of intestine 01/11/2021 19:29 HUSEYNI Mathews [place] TYPE: Medical Surgical COMPLAINT: - SEPSIS DIAGNOSES: - 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 - 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 - Hypomagnesemia - Acute and subacute hepatic failure without coma - Sepsis, unspecified organism - Dehydration - 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 - Essential (primary) hypertension - Generalized (acute) peritonitis - Acute (reversible) ischemia of large intestine, extent unspecified - Hypo-osmolality and hyponatremia - Acute and subacute hepatic failure without coma - Generalized (acute) peritonitis - Contact with and (suspected) exposure to COVID-19 - Nausea with vomiting, unspecified - shelter (current) use of opiate analgesic - Other chronic pain - Hypo-osmolality and hyponatremia - Sepsis, unspecified organism - Hypokalemia - Nicotine dependence, unspecified, uncomplicated - Dehydration - Other chronic pain - Essential (primary) hypertension - Acute (reversible) ischemia of large intestine, extent unspecified - Nicotine dependence, unspecified, uncomplicated - Dorsalgia, unspecified - Hypokalemia - Hypomagnesemia - Dorsalgia, unspecified - Other ascites - Other ascites [email or web address]
--- NOTE | 2021-12-25 07:19 | EKG ---
[facility] [address] [facility] [place] [address] Signed Normal sinus rhythm Prolonged QT Abnormal ECG No previous ECGs available Confirmed by HEAVENLY COWART MD ([id number]) on 12/25/2021 7:19:33 AM Electronically Signed By: HEAVENLY COWART MD 12/25/21 0719 PATIENT NAME: DUSTIN BISHOP Electrocardiogram DATE OF : 67 PHYSICIAN: HEAVENLY COWART MD REPORT #: [id number] REPORT IS CONFIDENTIAL AND NOT TO BE RELEASED WITHOUT AUTHORIZATION
--- NOTE | 2021-12-25 08:01 | NUR ---
In room 127 from surgery. MELANIA Alejandre in room with patient recovering. Assessment completed. NG to LIS. Vitals stable. Patient painful, restless.
--- NOTE | 2021-12-25 08:13 | NUR ---
12/25/21 0813 Brittney Vogel [phone]- PT ARRIVES TO CCU NONAROUSABLE TO NOXIOUS STIMULI WITH AN OPA IN PLACE. RESP EVEN AND UNLABORED. PT NEEDING A JAW LIFT TO MAINTAIN A PATENT AIRWAY. OXYGEN SAT HIGH 90'S TO 100% ON 10L VIA MASK.
--- NOTE | 2021-12-25 09:08 | NUR ---
UPDATED REPORT FROM MELANIA BERMAN. PATIENT RESTING WITH EYES CLOSED, RESPIRATIONS EVEN AND UNLABORED AT THIS TIME. CURRENTLY ON OXYGEN AT 1 L/MIN PER OXYMASK. NG ON LIS. DRESSING TO MIDLINE ABDOMEN REMAINS C/D/I. NO FURTHER CHANGES FROM PREVIOUS ASSESSMENT.
--- NOTE | 2021-12-25 10:02 | NUR ---
PATIENT AWAKE, RATING PAIN 8.5-9/10 AT THIS TIME. MERVIN BETANCUR, IN ROOM TO ASSESS PATIENT. STATES HE WILL DO LOCAL BLOCK.
--- NOTE | 2021-12-25 10:28 | NUR ---
BLOCK COMPLETED BY MERVIN BETANCUR, PATIENT STATING PAIN IS MUCH BETTER. NO LONGER MOANING, GUARDING OR ROLLING IN BED SHE PREVIOUSLY WAS PRIOR TO BLOCK.
--- NOTE | 2021-12-25 10:45 | NUR ---
OXYGEN REMOVED. PATIENT CURRENTLY ALERT AND ORIENTED, O2 SATS 97% ON 1 L/MIN PER OXYMASK OXYGEN. CURRENTLY, O2 SATS 94% ON ROOM AIR. RATING PAIN 6 TO 7/10 AT THIS TIME. DENIES OTHER NEEDS. CALL LIGHT IN REACH.
[2021-12-25] MEDS ORDERED: LISINOPRIL-HCT1 EACH PO (10:47)
[2021-12-25] MEDS ORDERED: HYDROCODON-ACE1 EA11 PO (10:49)
[2021-12-25] MEDS ORDERED: VENLAFAXINE HCL75 M1 PO (10:50)
[2021-12-25] MEDS ORDERED: TYLENOL EXTRA500 MG PO (11:06)
[2021-12-25] MEDS ORDERED: IBU-200200 MG PO (11:07)
[2021-12-25] MEDS ORDERED: VITAMIN D325 MCG PO (11:10)
[2021-12-25] MEDS ORDERED: BIOTIN5 M1 PO (11:10)
[2021-12-25] MEDS ORDERED: BENADRYL25 MG PO (11:11)
[2021-12-25] MEDS ORDERED: HAIR, SKIN & N1 EACH PO (11:11)
--- NOTE | 2021-12-25 11:11 | NUR ---
MED REC COMPLETE
--- NOTE | 2021-12-25 11:25 | CONS ---
[facility] [address] [place], [place] [address] Signed DATE OF CONSULTATION: 12/25/2021 CHIEF COMPLAINT: Periumbilical abdominal pain. HISTORY OF PRESENT ILLNESS: Fannie is a 56-year-old female who has had previous abdominal surgery to include a full hysterectomy and a sigmoid resection and a cecectomy with Dr. Engel in June 2021 for what appears to be ischemic colitis. She has had an abdominoplasty and bilateral breast reduction surgery along with laparoscopic cholecystectomy. She is single, and lives by herself. She was eating her dinner last evening around 5:30 and developed fairly abrupt periumbilical abdominal pain. She ended up vomiting three times and had diarrhea. The pain has been getting progressively worse. She came to the emergency room for evaluation. She was diffusely tender and with an elevated white count and a lactic acid high at 3.5. Alkaline phosphatase up at 140. AST and ALT are fine. Albumin is good at 4.8. Lipase is negative. She had a CT scan of abdomen and pelvis and there appears to be a colorectal anastomosis as well as what may be a stenosis around the area of the cecum from her prior surgery. She also has a periumbilical ventral hernia and she also has swirls small bowel loops in her mid abdomen consistent with her clinical course. There is always concern for an internal hernia. Given those findings, I have been asked to see her expeditiously here in the emergency room. In the meantime, she has received her cefepime and Flagyl in G-tube. Will begin Echols catheter soon. She has also received some IV fluids. She has received a couple doses of Dilaudid and that helps significantly. PAST MEDICAL HISTORY: Diverticulosis, chronic back pain, hypertension, ischemic bowel in June 2021. PAST SURGICAL HISTORY: Includes a full hysterectomy, bilateral breast reduction, abdominal plasty, tonsillectomy, sigmoid resection and cecectomy with Dr. Engel in June 2021 along with a laparoscopic cholecystectomy. SOCIAL HISTORY: She does not smoke. She has occasional drink. She is single and has one child Cecy at [phone], who is finishing her last year of college at . [employer]. Allison Cordon is her primary care provider. She prefers the [facility] pharmacy. She works in the [employer] at [place], [place]. FAMILY HISTORY: There is diabetes in her family. REVIEW OF SYSTEMS: Electronically Signed By: GUS FERNANDEZ MD 12/25/21 1125 PATIENT NAME: FANNIE BISHOP CONSULTATION DATE OF : 67 REPORT #: [id number] PHYSICIAN: GUS FERNANDEZ MD PCP: KRISTOPHER CORDON PA-C REPORT IS CONFIDENTIAL AND NOT TO BE RELEASED WITHOUT AUTHORIZATION [address] [address] Signed She had 10 systems reviewed and she told me that the periumbilical wound was infected and had to be left to heal in secondarily. ALLERGIES: 1. Tetracycline. 2. Neosporin. 3. Bacitracin. 4. Polymyxin B. 5. Pramoxine. MEDICATIONS: 1. Ibuprofen. 2. Oxycodone. 3. Tylenol. 4. Hydroxyzine. 5. Flexeril. 6. Multivitamin. 7. Nufola. 8. . 9. Lunesta. 10. Nexium. PHYSICAL EXAMINATION: VITAL SIGNS: Her blood pressure is 160/100, heart rate is 96, respiratory rate is 17, temperature is 97.5. She is 98% on room air. She is 5 feet 4 inches and 79 kg. GENERAL: This is a 56-year-old female, lying supine semi-recumbent in her ER bed. Her NG tube is placed. She has mostly clear gastric fluid out of the NG tube. She is alert, awake, and interactive. She said she feels much better after the Dilaudid. LUNGS: Generally clear to auscultation bilaterally. HEART: Regular rate and rhythm without murmurs. ABDOMEN: Moderately distended, but soft. After the Dilaudid, I can feel the periumbilical hernia. LABORATORY DATA: Her white blood cell count is 15, hemoglobin 13, neutrophils 80. BUN 27, creatinine 1.2, lactic acid 3.5, albumin 4.8, alkaline phosphatase 140, lipase negative, AST negative, ALT negative. RADIOGRAPHIC STUDIES: CT scan of the abdomen and pelvis is reviewed along with the report. There was question about stenosis at the right colon around the area of the cecum, but that has been resected that must be her anastomosis. She has what appears to be a colorectal anastomosis, periumbilical ventral hernia containing nonobstructed small bowel and then she does have small bowel loops in the mid abdomen that are twirled. Electronically Signed By: GUS FERNANDEZ MD 12/25/21 1125 PATIENT NAME: FANNIE BISHOP CONSULTATION DATE OF : 67 REPORT #: [id number] PHYSICIAN: GUS FERNANDEZ MD PCP: KRISTOPHER CORDON PA-C REPORT IS CONFIDENTIAL AND NOT TO BE RELEASED WITHOUT AUTHORIZATION [facility] [address] [place], [place] [address] Signed ASSESSMENT AND PLAN: Fannie is a 56-year-old female who presents with a small-bowel obstruction, most likely from adhesions from previous abdominal surgeries. It has been fairly abrupt and came on fairly quickly over the last few hours. Overall, she is a little better at this point. However, I told Fannie I am a little worried given her presentation and twirling in the mesentery. She apparently has a history of ischemic bowel, which seems a little odd for her age. Nevertheless, it seems prudent to take her to the operating room expeditiously for a midline laparotomy, lysis of adhesions and possible small-bowel resection. She knows she will have the NG tube in place along with the Echols catheter. We will have an ICU room for her afterwards. I have reviewed the surgery with her in detail. 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 She is very familiar with our staff and so forth. She knows she will be in the hospital at least around a week, maybe more, maybe last. There is risk including, but not limited to bleeding, infection, scarring, change in contour of the skin, damage to bowel, anastomotic leak, incisional hernias and other unforeseen comorbidities. She has expressed understanding and would like to proceed. Gus Fernandez MD ALB/MODL /[id number] cc: AMANDA Spence MD Copies: GUS FERNANDEZ MD ~ Electronically Signed By: GUS FERNANDEZ MD 12/25/21 1125 PATIENT NAME: FANNIE BISHOP CONSULTATION DATE OF : 67 REPORT #: [id number] PHYSICIAN: GUS FERNANDEZ MD PCP: KRISTOPHER CORDON PA-C REPORT IS CONFIDENTIAL AND NOT TO BE RELEASED WITHOUT AUTHORIZATION
--- NOTE | 2021-12-25 12:46 | NUR ---
STATES PAIN IS TOLERABLE AT THIS TIME. DRY COUGH WHILE THIS NURSE IN ROOM. INSTRUCTED TO USE PILLOW BRACE TO ABDOMEN WHILE COUGHING, DEMONSTRATES COUGH WITH PILLOW BRACE CORRECTLY. ALERT AND ORIENTED, SLEEPY. ATKINSON DRAINING CLEAR, YELLOW URINE. DRESSING TO MIDLINE ABDOMEN REMAINS CLEAN, DRY AND INTACT. FAMILY MEMBER AT BEDSIDE. CALL LIGHT IN REACH, BED RAILS UP X2.
--- NOTE | 2021-12-25 14:17 | NUR ---
Spoke with Dr. Cowan regarding pain. Rating pin 8.5/[address] Cowan/Luke Sanchez, RN, for Toradol 30 mg IV q8hr PRN.
--- NOTE | 2021-12-25 15:07 | OR ---
[facility] [address] [place], [place] [address] Signed DATE OF OPERATION: 12/25/2021 SURGEON: Gus Fernandez MD PREOPERATIVE DIAGNOSES: 1. Small bowel obstruction. 2. Dilated cecum with chronic right colonic stricture. POSTOPERATIVE DIAGNOSES: 1. Small bowel obstruction due to adhesions. 2. Dilated cecum with chronic right colonic stricture due to internal hernia. PROCEDURES: 1. Lysis of adhesions (minimal to moderate). 2. Right colectomy with hand-sewn [id number] isoperistaltic ileocolonic anastomosis. ESTIMATED BLOOD LOSS: 100 mL. FINDINGS: Fannie indeed had small bowel obstruction from dense string like adhesions but just as importantly she had a chronic right colonic stricture from an internal hernia from her surgery in July 2021. INDICATIONS: Fannie is a 56-year old female who I have known for many years. She has had various abdominal surgeries to include a full hysterectomy as well as abdominoplasty. She has undergone laparoscopic cholecystectomy. For reasons that are not clear, she developed ischemic colitis of the distal transverse colon and her splenic flexure. She developed a couple of strictures in this area. Dr. Engel had in that regard with balloon dilatation. When that was not successful, she elected to have surgery. She is also known to have rather significant diverticular disease. This required her distal transverse colon, splenic flexure, left colon and splenic colon all be resected. The right colon and transverse colon were left intact and rotated to bring the distal transverse colon down to mid rectum. The appendix had been removed at that time. The op report states that the mesenteric rent had been closed as well. Overall, she had recovered nicely from that surgery. She describes a periumbilical wound infection, indeed she has a small periumbilical incisional hernia. This was contained to have loop of small bowel that was not particularly concerning. She was trying to eat her dinner last evening around 5:30 and ended up with rather significant periumbilical abdominal pain. This was followed by Electronically Signed By: GUS FERNANDEZ MD 12/25/21 1507 PATIENT NAME: FANNIE BISHOP OPERATIVE REPORT DATE OF : 67 REPORT #: [id number] PHYSICIAN: GUS FERNANDEZ MD PCP: KRISTOPHER LOVE PA-C REPORT IS CONFIDENTIAL AND NOT TO BE RELEASED WITHOUT AUTHORIZATION [facility] [address] [place] [id number] Signed some diarrhea and several episodes of vomiting. When the pain was getting worse, she decided to come to the emergency room for evaluation. In the emergency room, she clearly was in some distress with an elevated white count and lactic acid. A CT scan was performed and one could see the small bowel obstruction and cecal dilation with the stricture in her right colon. There did not seem to be any venous outflow from that segment of bowel. The emergency room physician had called me and asked me to come urgently to the ER early this morning. I had met with Fannie and reviewed with her the above findings. 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 I explained her that this would require laparotomy with lysis of adhesions and probably a bowel resection most likely small bowel. She was hoping that she would need a colostomy. She understands the nature of surgery as I described it to her. There is risk including but not limited to bleeding, infection, scar and change in contour of the skin, damage to the bowel, anastomotic leak, incisional hernias and other unforeseen comorbidities. She had expressed understanding and wished to proceed. PROCEDURE IN DETAIL: Fannie had been taken down to the operating room and placed in a supine position under general endotracheal tube anesthesia. She had already been given preoperative cefepime and Flagyl. Her NG tube had been placed in the ER with return of somewhat feculent material. Echols catheter had been inserted without difficulty in the emergency room with return of clear yellow urine. SCDs have been utilized. She was given subcutaneous heparin. She was then prepped and draped in usual sterile fashion. We utilized her standard midline incision and carried it down to the tissue bluntly with the cautery. She has undergone a previous abdominoplasty and therefore the scar was quite dense. Fortunately, there was very little in the way of adhesions to the abdominal wall. She had some dense interloop adhesions and some adhesions from the small bowel down to the mesentery that were quite heavy like string and that cause the twisting in the small bowel obstruction. That was accomplished fairly expeditiously. We could see the dilated cecum and as we examined this more carefully, we realized there was an internal hernia that had been created when her bowel was rotated down to the top of the rectum. The cecum and the right colon were quite free and mobile and certainly susceptible to volvulus. After some consideration rather than try to reduce the right colon and small bowel through the internal hernia, I simply resected the cecum and the right colon. The possible portion of the transverse colon was divided with a linear stapler and we could see there is excellent blood supply coming up through the mesocolon. We then divided the terminal ileum right next to the cecum with our linear stapler. The mesocolon was taken down between Peon clamps and O Vicryl ties. This allowed us to bring her entire small bowel through underneath the colon as it travelled down to the top of the rectum. We followed it all the way back to the ligament of Treitz and it came out quite nicely in excellent anatomic position. This allowed the transverse colon to lie more on the left side as usual. It only took a few stitches to close the mesenteric rent near the ligament of Treitz. After this, we brought the terminal ileum up to the proximal Electronically Signed By: GUS FERNANDEZ MD 12/25/21 1507 PATIENT NAME: FANNIE BISHOP OPERATIVE REPORT DATE OF : 67 REPORT #: [id number] PHYSICIAN: GUS FERNANDEZ MD PCP: KRISTOPHER LOVE PA-C REPORT IS CONFIDENTIAL AND NOT TO BE RELEASED WITHOUT AUTHORIZATION [facility] [address], [place] [address] Signed transverse colon and we created a [id number] isoperistaltic ileocolonic anastomosis in two layers with Vicryl and silk sutures. That anastomosis is 2.5 to 3 cm in length. The mesenteric rent of the mesocolon was then closed with a running 2-0 Vicryl suture. We were then able to place the small bowel and proximal transverse colon back in the abdomen laid in nice anatomic position. The abdomen was irrigated and suctioned out until clear. We then closed the midline fascia with interrupted #1 figure of 8 PDS suture. We injected local anesthetic in the subcutaneous tissues. The wound was irrigated and suctioned out until clear. We brought the dermis back together with interrupted 3-0 subcuticular Monocryl sutures. The skin was then reapproximated with bianca. Dry gauze and tape were then applied. The NG tube has been left in place along with the Echols catheter. Tia was awakened from anesthesia, extubated in the OR and taken to the recovery room in stable condition. Gus Fernandez MD ALB/MODL /[id number] cc: MD Kristopher Dalton MD Copies: GUS FERNANDEZ MD, JOHN MD ~ Electronically Signed By: GUS FERNANDEZ MD 12/25/21 1507 PATIENT NAME: FANNIE BISHOP OPERATIVE REPORT DATE OF : 67 REPORT #: [id number] PHYSICIAN: GUS FERNANDEZ MD PCP: KRISTOPHER LOVE PA-C REPORT IS CONFIDENTIAL AND NOT TO BE RELEASED WITHOUT AUTHORIZATION
--- NOTE | 2021-12-25 15:47 | NUR ---
NG with no output for this AM. Suction on wall not sucking when turned on. Moved to different vacuum in room. no change in output. NG flushed and minimal output aspirated, resistance met with aspiration. changed to room [address] on LIS to vacuum, continues without output, does have output in tubing that does not move. Attempt to flush with 20 Ml and attempt to aspirate with resistance. NG pulled back approximately 1.5 cm, no changes. Readvanced 3 cm, continues to not pull out stomach contents.
--- NOTE | 2021-12-25 15:58 | NUR ---
Notified Dr. Cowan of issues with NG tube. TORB Dr. Cowan/Luke Sanchez, RN for CXR to verify tube placement.
--- NOTE | 2021-12-25 16:35 | NUR ---
Heat pack to back per patient request. Movement increases pain significantly.Radiology in to complete x-ray. Patient tearful, guarding and restless prior to x-ray. PRN given, restlessness decreases but continues to be tearful, guarding.
--- NOTE | 2021-12-25 17:16 | NUR ---
Update from RN. Pt has returned with sbo and is very painful. Living situation and family remain the same. Will follow up with this pt on Tuesday.
--- NOTE | 2021-12-25 18:19 | NUR ---
PATIENT DESATING TO 80% ON ROOM AIR. OXYGEN PLACED ON PATIENT AT 2L/MIN PER OXYMASK. O2 SAT INCREASES TO 91-95% ON OXYGEN.
--- NOTE | 2021-12-25 19:50 | NUR ---
ROUNDING ON PT SHE IS RESTING QUIETLY IN BED, RESP REGULAR 18 BPM, ON 2L OXYMASK, SNORING IS NOTED, PT'S DAUGHTER IS NOW AT BEDSIDE TO SPEND THE NIGHT.
--- NOTE | 2021-12-25 22:19 | NUR ---
PT AWAKE, REQUESTING PAIN MEDICATION FOR PAIN /10 AT HER ABD, 1MG DILAUDID IV PRN ADMINISTERED, ICE PACKS PROVIDED, ABX INFUSING, PT'S DAUGHTER AT BEDSIDE, ASSESSMENT COMPLETE. MIDLINE SURGERY DRESSING CDI.NO SHADOWING NOTED AT THIS TIME.
--- NOTE | 2021-12-26 00:15 | NUR ---
DISCUSSED WITH PT NEXT PAIN MEDICATION WOULD BE AVAILABLE AT [place], WELL THE ATIVAN IF NEEDED AT THAT TIME. PT CALLED AT 1158, SHE SAID THE PAIN JUST CAME ON ALL THE SUDDEN OVER 10/10 PAIN, PT ADMINISTERED 1.5 OF DILAUDID IV PRN AND ATIVAN 1MG IV PRN AT [place], THIS RN WAS IN MED ROOM TO DRAW UP MEDICATION AT TIME SHE CALLED. PT RR INCREASED TO 25 BPM, SHE HAS TEARS AND IS GROANING. STAYED AT BEDSIDE AFTER MEDICATION ADMINISTRATION TO TALK WITH PT ABOUT TAKING SLOW CONTROLLED BREATHS, TRYING TO RELAX A LITTLE TO ALLOW THE MEDICATIONS TO WORK. PT DID CALM AND REPORTS SHE IS GOING TO TRY TO SLEEP AT THIS TIME. SHE HAS NO OTHER REQUESTS AT THIS TIME.
--- NOTE | 2021-12-26 01:09 | NUR ---
PT RESTING IN BED, SNORING RR 11 BPM, NO DISTRESS ASSESSED AT THIS TIME.
--- NOTE | 2021-12-26 02:00 | NUR ---
ROUNDING INTO PT ROOM, PT ALERT RESTING IN BED, SHE SAID "I WAS JUST ABOUT TO CALL YOU, THE PAIN IS REALLY GETTING BAD 07/08 PAIN" DILAUDID 2MG IV PRN AT THIS TIME. BEFORE THIS PAIN MEDICATION WAS ADMINISTERED PT ASKED "OK, WHEN IS MY NEXT PAIN MEDICATION AVAILABLE?" THIS RN SAID, PAIN MEDICATION IS AVAILABLE IN TWO HOURS. PT SAID "OK, HOW LONG DO YOU THINK I WILL HAVE TO STAY IN THE HOSPITAL?" THIS RN SAID "IT DEPENDS, EVERYONE IS DIFFERENT, PAIN NEEDS TO BE TOLERABLE ON PO PAIN MEDICATION, YOU NEED TO BE ABLE TO AMBULATE AND TOLERATE EATING AFTER THE NGT COMES OUT" PT SAID "OK,I CANT EVEN GET UP YET"
--- NOTE | 2021-12-26 03:55 | NUR ---
ROUNDING IN PT ROOM, PT ALERT REPORTS PAIN 10/10, PT ADMINISTERED 2MG IV DILAUDID PRN AT THIS TIME. PROVIDED NEW ICE PACKS FOR ABD, WARM PACK AND WARM BLANKETS FOR HER BACK. PT REQUESTED MORE ICE CHIPS 1/2 CUP PROVIDED AT THIS TIME. PT HAS NO OTHER REQUESTS OR CONCERNS SHE DID ASK "WHEN IS THE NEXT PAIN MEDICATION AVAILABLE THIS RN SAID IN TWO HOURS AT 0600. PT SAID "OK"
--- NOTE | 2021-12-26 08:04 | NUR ---
REPORT GIVEN TO RN FROM EDI ARCHITECT RN, ASSUMED ALL CARE OF PT., RESTING IN BED, AWAKE WATCHING TV AND LOOKING AT HER PHONE, NGT TO LIWS, IVF PATENT TO PUMP AT LR 100/HR, IV CEFEPIME RUNNING IV/4 HR. INFUSION. ROOM AIR, SATS 93%, ATKINSON PATENT TO SD, CLEAR YELLOW URINE, SCD'S B LE, NO EDEMA, HYPOACTIVE BS, STATES PASSING FLATUS, DR FERNANDEZ IN THE ROOM.
--- NOTE | 2021-12-26 11:05 | NUR ---
DILAUDID COIN MACHINE SERVICE REPAIRER INFUSING, 2 IV SITES, MULTIPLE MINI BAGS HANGING, PT. IS NOW ABLE TO CONVERSE SECONDARY TO PAIN, SHE IS TALKING WITH HER DAUGHTER, PAIN RATING GOING DOWN NOW IS 8/10. SHE HAS CHRONIC BACK PAIN AND IS RESISTANT TO PAIN MEDS. STATES HER PAIN IS DEFINITELY GETTING BETTER.
--- NOTE | 2021-12-26 13:35 | NUR ---
IN PATIENT'S ROOM TO HELP PREPARE TO MOVE PATIENT TO MEDICAL FLOOR. PATIENT in 06/07 PAIN AND TEARFUL. PT STATES, "THIS ENVIRONMENTAL SAMPLER HASN'T GIVEN ME ANY MEDS SINCE 20 MINUTES BEFORE 1300." ENVIRONMENTAL SAMPLER PUMP ASSESSED AND NOTED THAT THE 4 HR LIMIT OF 4.5 MG HAD BEEN ATTAINED. CALLED DR. FERNANDEZ TO DISCUSS POTENTIALLY INCREASING THE 4 HR LIMIT. VERBAL ORDER ON PHONE FROM DR. FERNANDEZ TO INCREASE THIS 4 HR LIMIT TO 6 MG. PATIENT UPDATED ON THIS AND CHANGE MADE ON PUMP. PT ALSO GIVEN 2 MG IV ATIVAN AND PT TOLERATING WELL. RR 15-17 WHILE THIS RN IN ROOM, AND SP02 IS 97-99% ON 2 L NC. NGT CONTINUES TO PUT OUT LARGE AMOUTNS OF GREEN LIQUIDS. PT WANTING TO HAVE WATER OR 7 UP. DISCUSSED WITH PATIENT THAT SHE IS NOT ALLOWED LIQUIDS YET, BUT ICE CHIPS OKAY. PT'S DAUGTHER REMAINS IN ROOM. UPDATED REPORT CALLED TO MED/SURG AND PATIENT TRANSFERRED TO MED/SURG 123.
--- NOTE | 2021-12-26 15:04 | NUR ---
PATIENT RESTING IN BED, EYES CLOSED RESPIRATIONS EVEN, SNORING, PROJECT LEAD DOSE WAS INCREASED PER MD. IV ABX INFUSING, D5LR AT 100 ML/HR, NPO. CONTINUOUS PULSE OX, 124/82, P=99, RESP=15, 96% SATS. 02 AT 2L NC.
--- NOTE | 2021-12-26 18:00 | NUR ---
S/P ABDOMINAL SURGERY/MARINA, EFRA MIDLINE AND MD FRANCA REMOVED DRESSING THIS AM, PAIN CONTROLLED WITH DILAUDID BLASTING COAL MINER DEMAND DOSE 1 MG Q 10 MINUTES WITH A TOTAL OF 6 MG IN 4 HOURS. SLEEPY MOST OF THE AFTERNOON, NO ADDITIONAL PRN MEDS UNTIL CHANGE OF SHIFT. ATKINSON CATHETER DC'D, TOLERATED WELL. IV ABX, CALCIUM GLUCONATE GIVEN. SCD'S WHILE IN BED, 02 AT 2L NC, DESATS AT TIMES WHEN SLEEPING, D5LR AT 100, PIV X 2. A & O X 4, DAUGHTER AT BEDSIDE MOST OF THE DAY. ACTIVE BS THIS AFTERNNON, NGT TO LIWS WITH DARK GREEN/BROWN LIQUID DRAINAGE WITH GROUNDS.
--- NOTE | 2021-12-26 18:54 | NUR ---
PT. AWAKE AND GRABBING HER ABDOMEN WRITHING IN PAIN, STATES 10, DILAUDID STUDENT EDUCATION SPECIALIST PATENT, UNABLE TO CONTROL HERSELF OR BREATHE WITH RN, DAUGHTER TRYING TO CONSOLE PT., GAVE ATIVAN IV X 1, LINTER DRIER OPERATOR ASSISTED WITH CHANGING OUT TO NEW DILAUDID SYRINGE WHICH WAS ENDING, PT. ABLE TO GIVE ONE DEMAND DOSE AND WITHIN A FEW MINUTES WAS ABLE TO FALL BACK ASLEEP, CONTINUOUS PULSE OX ON AND SATS WNL ON 2 L NC.
--- NOTE | 2021-12-26 19:50 | NUR ---
RECEIVED REPORT, PT IS RESTING IN BED WITH EYES CLOSED, RR IS EVEN AND UNLABORED. CPOX READS 90%. DAFREDYTHER LILY IS AT BEDSIDE AND SHE DENIES NEEDS. SHE WARNS THAT PT NEEDS ATIVAN REGULARLY TO KEEP HER FROM GETTING WORKED UP AND DOES NOT TOLERATE PAIN WELL. REASSURED DAUGTHER THAT WE WILL KEEP UP ON HER MEDICATIONS AND KEEP HER COMFORTABLE WE CAN. CALL LIGHT IS CLOSE IV IS INFUSING FINE AND MEDICAL SUPPORT SPECIALIST BUTTON IS ON CHEST 3MG DILAUDID HAVE INFUSED SINCE CLEARED BY DAYSHIFT.
--- NOTE | 2021-12-26 21:48 | NUR ---
CALLED DR FERNANDEZ TO NOTIFY HIM OF PT'S UNCONTROLLED PAIN WITH WARES SORTER PUMP. SHE REACHED THE 4 HOUR LOCKOUT LIMIT AND IS IN 10/[address] FERNANDEZ TO INCREASE HER 4 HOUR LIMIT FROM 6MG TO 8MG NO FURTHER CHANGES AT THIS TIME.
--- NOTE | 2021-12-26 21:50 | NUR ---
IN TO GET VITALS, PT IS NPO BUT REQUESTING SIPS OF WATER OR 7UP, WILL CHECK WITH RN ABOUT THE NPO ORDER, NO FURTHER NEEDS AT THIS TIME, RN IN RM FOR PAIN ASSESSMENT
--- NOTE | 2021-12-26 22:00 | NUR ---
IN ROOM WITH SLEEVER BECKY TO CHANGE SPA HOST SETTINGS TO NEW ORDERS. SPA HOST PUMP HAS MAX LIMIT OF 6MG 4HR LIMIT, WE WERE NOT ABLE TO CHANGED IT TO THE NEW ORDER OF 8MG 4 HR LIMIT. CLEARED PUMP IN ORDER FOR PT TO PUSH HER BUTTON AND RECORDED 4.7MG. DAUGHTER IS AT BEDSIDE.
--- NOTE | 2021-12-26 22:25 | NUR ---
2210-CALLED DR FERNANDEZ TO EXPLAIN THAT PUMP WAS SET AT MAX 4HR LIMIT OF 6MG AND IT WOULD NOT ALLOW US TO OVERRIDE. HE STATES PHARMACY WILL HAVE TO DO IT TOMORROW. HE SAID IT WAS OK TO USE THE PREVIOUS IV PUSH DILAUDID ORDER FOR BREAKTHROUGH PAIN THAT WAS BEING USED BEFORE THE COMPUTER LAB PARA PROFESSIONAL ORDER WAS STARTED. TORBC THAT THE DILAUDID DOSING PARAMETERS DID NOT CHANGE. 2225-IN ROOM TO CHANGE COMPUTER LAB PARA PROFESSIONAL CARTRIDGE THE OTHER CARTRIDGE WAS EMPTY. WITNESSED MICHEAL BYERS RN PLACE EMPTY CARTRIDGE IN SHARPS CONTAINER. PT REPORTS PAIN AT 8/10 AT THIS TIME. EXPLAINED TO PT THAT SHE WILL NEED TO CALL IF THE COMPUTER LAB PARA PROFESSIONAL BEEPS AT HER THAT SHE HAS MET HER LIMIT AND WE CAN GET HER IV PUSH DILAUTED. PT STATES UNDERSTANDING. ADMINISTERED IV TYLENOL. [id number] TO [facility], PT DID WELL BUT NEEDED HELP WITH ALL OF HER TUBES/LINES. SHE IS NOW BACK IN BED AFTER VOIDING 200MLS OF URINE. PT DENIES NAUSEA, NGT IS ON LIWC AND DRAINING FINE. IV/COMPUTER LAB PARA PROFESSIONAL ARE INFUSING FINE. PT IS ON 2LNC AND CPOX WNL. PT PROVIDED WARM BLANKET AND DENIES FURTHER NEEDS AT THIS TIME. CALL LIGHT IS CLOSE.
--- NOTE | 2021-12-27 01:42 | NUR ---
PT IS RESTING WITH EYES CLOSED, RR IS EVEN AND UNLABORED ON 2LNC CPOX READS 90%. CALL LIGHT IS CLOSE, SCDS IN PLACE, IV IS INFUSING FINE, AND AUTOMATION QA LEAD BUTTON IS ON CHEST.
--- NOTE | 2021-12-27 03:25 | NUR ---
WASHING TUB OPERATOR PUMP WAS BEEPING, ENTERED ROOM TO CHANGE DILAUDID CARTRIDGE. PT WAS SLEEPING AND WOKE TO 10/10 PAIN. WARM BLANKET PROVIDED AND PT DENIES FURTHER NEEDS. CALL LIGHT IS CLOSE.
--- NOTE | 2021-12-27 05:06 | NUR ---
PT IS RESTING WITH EYES CLOSED, RR IS EVEN AND UNLABORED. CALL LIGHT IS CLOSE.
--- NOTE | 2021-12-27 06:31 | NUR ---
IN ROOM TO ASSIST PT TO BSC. RETAPED NG TUBE TO NOSE, PT SAYING PAIN IS WORSE THAN 10/10. ADMINISTERED 1MG IV DILAUDID SLOW PUSH SILO OPERATOR LIMIT WAS MAXED OUT AND 2MG ATIVAN IV SLOW PUSH. ALSO ADMINISTERED IV TYLENOL AND STARTED IV ABX. FLUSHED NG TUBE WITH 20MLS, CHANGED CANISTER. SHE HAD 700 OUTPUT VIA NG TUBE. PT DENIES NAUSEA BUT VERY PAINFUL/ANXIOUS. PT IS NOW RESTING WITH EYES CLOSED, RR IS EVEN AND UNLABORED. PT ON 2LNC AT 98% ON CPOX. CALL LIGHT IS CLOSE AND SILO OPERATOR BUTTON REMAINS ON CHEST.
--- NOTE | 2021-12-27 06:55 | NUR ---
PT WAS TOO PAINFUL EVEN WITH CABINET INSTALLER PUMP. SHE REACHED HER 4HR MAX LIMIT EARLY ON IN THE SERVICE AGENT. SPOKE WITH DR FERNANDEZ TO GET MORE PAIN CONTROL. CABINET INSTALLER 4HR LIMIT WAS INCREASED TO 8MG FROM 6MG, HOWEVER THE CABINET INSTALLER PUMP WOULD NOT PROGRAM OVER 6MG. DR FERNANDEZ OK WITH US GIVING THE PRN DILAUDID ORDER ALREADY ON EMAR FOR BREAKTHOUGH PAIN WHEN 4HR LIMIT IS REACHED. PT SLEPT ON AND OFF THROUGH THE NIGHT. SHE WAKES VERY PAINFUL AND ANXIOUS. NG TUBE IN PLACE AND DRAINED 700MLS. PT ON CPOX THROUGH NIGHT ON 2LNC WITH SPO2 BETWEEN 90-98%. ADMINISTERING TYLENOL FOR MORE PAIN CONTROL. PT VOIDING OK AFTER ATKINSON REMOVED YESTERDAY. SHE IS SBA TO BSC. SHE HAS D5LR INFUSING AT 100MLS/HR. MIDLINE INCISION HAS SLIGHT REDNESS, NO DRAINAGE.
--- NOTE | 2021-12-27 07:46 | NUR ---
RECD. REPORT FROM NIGHT RN, PT. AWAKE AND EATING ICE CHIPS, RN INSTRUCTED SHE DID NOT HAVE ORDERS FOR THIS AND THEN REMOVED THE ICE CHIPS, PAIN CONTROLLED WITH HIGH SCHOOL COMPUTER SCIENCE TEACHER, STATES SHE WANTS TO GO HOME TODAY. CONVERSING AND ASKING QUESTIONS, UP AD SHANTI TO BR, STILL ASKING FOR PRN MEDS ABOVE PARAMATERS OF HIGH SCHOOL COMPUTER SCIENCE TEACHER, TO DISCUSS WITH THIS AM.
--- NOTE | 2021-12-27 08:20 | NUR ---
Rounded on patient, IV fluid and IV ABX infusing WNL. Pt resting with eyes closed, even and unlabored respirations, CPOX in place spo2 94%, on 2L NC. NGT to LIWS. No needs identified at this time, pt daughter in room. Call light in reach.
--- NOTE | 2021-12-27 11:34 | NUR ---
Hydromorphone RESEARCH PROFESSOR OF BIOSTATISTICS order changed per verbal order from Dr Cowan. Patient now receiving continuous hydromorphone 0.3mg/hr. Demand dose remains at 1mg every 10 mins prn. Although MD authorized a four hour maximum amount of 8mg, pump settings allow only up to 6mg in 4 hour period.
--- NOTE | 2021-12-27 13:01 | NUR ---
RESTING IN BED, SECURED IV IN LEFT WRIST, BED SPRING MAKER INFUSING WITH BASAL AND DEMAND, RESTING COMFORTABLY WATCHING TV AND CONVERSING, RATES HER PAIN 8/10. DENIES NAUSEA, 02 AT 2L NC DESATS WHILE SLEEPING, ENCOURAGED TO WALK TODAY. IV'S INFUSING WELL.
--- NOTE | 2021-12-27 16:46 | NUR ---
TCT DR. FERNANDEZ, REPORTED C/O MIGRAINE, ORDERS RECEIVING, PHARMACY TO BRING TO FLOOR, COLD PACK ON FOREHEAD
--- NOTE | 2021-12-27 17:14 | NUR ---
PT. C/O MIGRAINE HEADACHE AND WRITHING IN THE BED, COMPRESS ON FOREHEAD, MEDICATION FOR MIGRAINE GIVEN PER HOME ROUTINE.
--- NOTE | 2021-12-27 19:10 | NUR ---
SHIFT REPORT FROM SD PACKING MACHINE CAN FEEDER. PT HAS HAD DIFFICULT DAY WITH TRANSITION TO PO PAIN MANAGMENT, NGT OUT, NEEDS TO BE ENCOURAGED TO AMBULATE, ELECTROLYTES REPLACED TODAY, FEATHER SEPARATOR D/C.
--- NOTE | 2021-12-27 20:17 | NUR ---
PT RESTING IN BED, SHE REPORTS PAIN 9/10, TWO TABS NORCO 10/325 PO PRN ADMINISTERED AT THIS TIME, SHE REPORTS NO NAUSEA AT THIS TIME. SHE IS ALERT AND ORIENTED. HER DAUGHTER IS AT BEDSIDE. ASSESSMENT, V/S AND I/O COMPLETE AT THIS TIME. PT PROVIDED 1/2 CUP ICE CHIPS, CLEAN AND STRAIGHTENED THE ROOM. PT HAS NO OTHER CONCERNS OR REQUESTS.
--- NOTE | 2021-12-27 22:46 | NUR ---
ROUNDING ON PT, PT IS RESTING IN BED WITH EYE COVER ON, SHE IS SNORING 18 BPM. NO DISTRESS NOTED, IVF AND ABX INFUSING ORDERED. NO CONCERNS AT THIS TIME
--- NOTE | 2021-12-27 23:12 | NUR ---
SHANK THREADER DISCONTINUED AND CPOX WELL. RN INSTRUCTED TO CALL IF PATIENT NEEDS O2 OR HAS ANY CONCERNS.
--- NOTE | 2021-12-28 00:13 | NUR ---
ROUNDING IN PT ROOM, PT ALERT TO THIS RN AT BEDSIDE, SHE REPORTS PAIN 8/10. PT ADMINISTERED ATIVAN 2MG IV PRN FOR ANXIETY, AND TWO TABS NORCO 10/325 PO PRN FOR PAIN AT ABD. PT RESTLESS AT THIS TIME. NO OTHER REQUESTS AT THIS TIME.
--- NOTE | 2021-12-28 01:57 | NUR ---
PT RESTING QUIETLY IN BED EYES CLOSED RR 13BPM, NO DISTRESS NOTED, PT NOTED TO BE SNORING.
--- NOTE | 2021-12-28 04:32 | NUR ---
ROUNDING ON PT..PT ALERT TO RN AT BEDSIDE. PT REPORTS SHE NEEDS TO USE THE COMMODE, PT UP TO COMMODE VOIDED 650ML URINE, PT REPORTS PAIN 8/10 AT ABD, ABD NOTED TO BE DISTENDED, SURGERY SITE WELL PROXIMATED EFRA INTACT, PT TOLERATED ACTIVITY WELL. PT REPORTS SHE HAS SLEPT WELL OVER SHIFT, PT HAD DESATURATED TO 88% WHILE SLEEPING AT 0300 2L OXYGEN PLACED AT THAT TIME. PT NOW 100% AT SPOT CHECK, PT ON ROOM AIR NOW 96% OXYGEN SATURATION. KPAD SET UP PER PT REQUEST TO ASSIST WITH HER BACK PAIN.
--- NOTE | 2021-12-28 04:45 | NUR ---
PT HAS SLEPT WELL OVER SHIFT, PAIN WELL MANAGED, ZOFRAN ADMINISTERED ONCE FOR SLIGHT NAUSEA. TOLERATING CLEAR LIQUIDS WELL, 1000ML Q24 HOURS PER ORDER RESTRICTION. PT HAS REPORTED PAIN 7-9/10 OVER NIGHT, NORCO PRN HAS BEEN ADMINISTERED AVAILABLE. SHE WAS PLACED ON 2L OXYGEN AROUND 0300 FOR OXYGEN DESATURATION TO 88% WHILE SLEEPING ON ROOM AIR. PT NOW ON ROOM AIR 95% OXYGEN SATURATION PER SPOT CHECK. PT'S ABD NOTED TO BE SLIGHTLY MORE DISTENDED THAN START OF SHIFT, SHE IS PASSING FLATUS REGULAR WHILE UP TO BEDSIDE COMMODE, DISCUSSED WITH PT PLAN TO AMBULATE THE HALLS TODAY, THAT WILL ALSO HELP WITH DISTENDED ABD, PASSING GAS AND GETTING BOWELS MOVEING, PT SAID NODDED HER HEAD AND SAID "YEAH, I KNOW" PT BACK TO BED WITH K-PAD IN PLACE TO ASSIST WITH CHRONIC BACK PAIN.
--- NOTE | 2021-12-28 05:59 | NUR ---
PT CRYING/MOANING/RESTLESS IN BED, SHAKING HER HEAD BACK AND FORTH, GRIMACING, DILAUDID 2MG IV AND 2MG ATIVAN IV ADMINISTERED AT THIS TIME. WILL MONITOR FOR EFFECT.
--- NOTE | 2021-12-28 07:56 | NUR ---
RECEIVED REPORT FROM LEAD CYTOGENETIC TECHNOLOGIST RN. PATIENT RESTING IN BED. ADULT AND PEDIATRIC NEUROLOGIST PRESENT IN ROOM TAKING VITALS. NO FURTHER NEEDS NOTED. CALL LIGHT WITHIN REACH.
--- NOTE | 2021-12-28 08:45 | NUR ---
PATIENT ASSESSMENT COMPLETED. PATIENT IS UP RESTING ON EDGE OF BED HOLDING ABD AND MOANING. PATIENT REPORTS 10/10 PAIN IN ABD. PRN MEDICATION GIVEN PER ORDER. VITALS TAKEN AND RECORDED. SCHEDULED AM MEDICATIONS GIVEN PER ORDER. IV INFUSING PER ORDER. K PAD IN PLACE AND WNL. SCDS IN USE. PATIENT IS NOW RELAXED IN BED. X2 ICE PACKS APPLIED TO ABD. MID ABD INCISION OPEN TO AIR, WELL APPROX, NO S/SX OF INFECTION NOTED, EFRA PRESENT AND INTACT. FRESH ICE WATER PROVIDED. DAUGHTER PRESENT IN ROOM. NO FURTHER NEEDS NOTED. CALL LIGHT WITHIN REACH
--- NOTE | 2021-12-28 10:32 | NUR ---
FRESH ICE PACKS PLACED ON ABD. I & O TAKEN AND RECORDED. EDUCATED PATIENT ON FR, ALL QUESTIONS ANSWERED. BROUGHT FRESH WATER. NO FURTHER NEEDS NOTED. CALL LIGHT WITHIN REACH
--- NOTE | 2021-12-28 12:27 | NUR ---
PATIENT ASSISTED TO BED FROM BEDSIDE COMMODE. PATIENT ABLE TO VOID. PATIENT REPORTS "12/10" PAIN IN HER ABD, PRN PAIN MEDICATION GIVEN PER ORDER. PRN HEADACHE MEDICATION GIVEN PER ORDER. SCHEDULED ABX INFUSING PER ORDER. PRN ANXIETY MEDICATION GIVEN PER REQUEST AND ORDER. SCD'S IN USE. WATER PROVIDED. DAUGHTER AT BEDSIDE. NO FURTHER NEEDS NOTED. CALL LIGHT WITHIN REACH
--- NOTE | 2021-12-28 13:42 | NUR ---
PATIENT CONTINUES TO REPORT MIGRAINE. PRN MIGRAINE GIVEN PER ORDER. VITALS TAKEN AND RECORDED. I'S & O'S RECORDED. SCHEDULED ABX GIVEN AND INFUSING PER ORDER. REFRESHED ICE WATER. NO FURTHER NEEDS NOTED. FAMILY PRESENT AT BEDSIDE. CALL LIGHT WITHIN REACH.
--- NOTE | 2021-12-28 14:20 | NUR ---
Attempted to see pt and their are multiple people in pts room. I returned later and pt was sleeping. Will follow up with her tomorrow. I was able to speak with her daughter briefly.
--- NOTE | 2021-12-28 14:30 | NUR ---
I was able to visit with Fannie today and discuss her care while here in the hosptial. Fannie had her daughter and a guest in the room with her. She feels that her care has been fine except for her pain management. She feels that her pain has not been well controlled. She stated that she is no longer getting the IV pain medication, and that she needs better pain control. I did share with her that when I rounded earlier in the day she was sleeping, and did not awaken when I knocked on the door, and upon entering the room. I was able to visit with Fannie's primary nurse who related that Fannie had not asked for IV pain medication, and that she was diligently giving her scheduled PO meds wich is evident in the EMAR. There is a concern for bowel motility and the need for the patient to ambulate, which she has done once today. IV pain medications were given, and ambulation was discussed between Fannie, myself, and her primary RN. After the IV pain medication was given Fannie expressed a desire to get up and ambulate. The nurse accomodated this action and was getting Fannie up to walk when I left the room. No other concerns were discussed at this time.
--- NOTE | 2021-12-28 14:45 | NUR ---
YAMILETH ALVARADO RN REPORT PATIENTS CONCNER OF PAIN CONTROL. PATIENT GIVEN PRN IV PAIN MEDICATION PER ORDER. EDUCATED PATIENT ON PLAN OF CARE. PATIENT VERBALIZES UNDERSTANDING. PATIENT UP AND AMBULATED X2 LAPS IN HALLWAY. PATIENT IS BACK IN BED RESTING. PATIENT RATES PAIN AT A 8/10 AND DENIES THE NEED FOR ADDTIONAL PAIN MEDICATION. PATIENT UPDATAED ON PLAN OF CARE FOR PAIN MANAGEMENT. PATIENT VERBALIZES UNDERSTANDING. FAMILY PRESENT IN ROOM. KPAD REMAINS ON PATIENTS BACK. SCDS IN USE. NO FURTHER NEEDS NOTED. CALL LIGHT IN REACH.
--- NOTE | 2021-12-28 16:20 | NUR ---
ASSESSMENT COMPLETED. R/T PRESENT IN ROOM. PATIENT REPORTS 7/10 PAIN. PRN PAIN MEDS GIVEN PER ORDER. PATIENT REQUESTED WATER, EDUCATED PATIENT ON FR. PATIENT VERBALIZED UNDERSTANDING. WATER PROVIDED. SCD'S IN PLACE. NO FURTHER NEEDS NOTED. CALL LIGHT WITHIN REACH.
--- NOTE | 2021-12-28 17:53 | NUR ---
PATIENT WAS RESTING IN BED WITH EYES CLOSED WHEN ROOM WAS ENTERED. PATIENT AWOKEN TO TAKE VITALS. VITALS TAKEN & RECORDED. I'S & O'S RECORDED. PATIENT REPORTS 9/10 PAIN IN HER ABDOMEN AND IS REQUESTING PAIN MEDICATIONS. NO FURTHER NEEDS NOTED. CALL LIGHT WITHIN REACH.
--- NOTE | 2021-12-28 18:09 | NUR ---
PATIENT REPORTS 9/10 PAIN IN HER ABD. PRN PAIN MEDICATION GIVEN PER ORDER. PATIENT IS DROWSY BUT EASILY TO AWAKEN. IV INFUSING PER ORDER. NO FURTHER NEEDS NOTED. CALL LIGHT IN REACH.
--- NOTE | 2021-12-28 18:40 | NUR ---
PATIENT IS RESTING IN BED WITH EYES CLOSED, RR 16. CALL LIGHT IN REACH.
--- NOTE | 2021-12-28 19:20 | NUR ---
BEDSIDE REPORT FROM ANGELA Khan RN AND HER STUDENT RN, PT RESTING IN BED EYES CLOSED, SNORING NOTED, ANGELA VELÁZQUEZ SHOWED KPAD LEAK TO THIS RN. 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 WILL CONTINUE TO ADMINISTER PAIN MEDICATIONS SAFE PER HER V/S AND RESPERATION RATE.
--- NOTE | 2021-12-28 21:08 | NUR ---
PT UP TO BEDSIDE COMMODE, VOIDED 650ML OF URINE AT THIS TIME, SHE TOLERATED ACTIVITY WELL. NO REPORT OF INCREASE DISCOMFORT.
--- NOTE | 2021-12-28 22:15 | NUR ---
ROUNDING ON PT, HE IS RESTING IN BED REPORTS NO PAIN OR NAUSEA. ASSESS ATKINSON TUBING NOTED TO BE PINK TO RED NO CLOTS/SEDAMENT NOTED, EMPTIED ATKINSON FOR 650ML. NO DISTRESS NOTED. 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 NO OTHER QUESTIONS/CONCERNS OR REQUESTS AT THIS TIME.
--- NOTE | 2021-12-28 22:41 | NUR ---
PT RESTING IN BED EYES CLOSED RR 12 BPM, WILL MONITOR CLOSE, SNORING NOTED AT THIS TIME, PT RESTING IN RELAXED POSITION, FACIAL MUSCLES RELAXED, NO DISTRESS NOTED AT THIS TIME
--- NOTE | 2021-12-28 23:12 | NUR ---
SBA TO BEDSIDE COMMODE. CHANGED GOWN AND DRAWSHEET DAMPED FROM SWEAT. PATIENT IS BACK IN BED. FEW ICE CHIPS PROVIDED PER PATIENT'S REQUEST AND OKAYED BY PRIMARY RN MICHAEL Khan
--- NOTE | 2021-12-29 00:34 | NUR ---
PT REPORTS HER PAIN 04/07 SHE IS ADMINISTRATED NORCO 2 TABS 10/325 PO PRN, AND 2MG IV DILAUDID, PT THEN UP IN HALLS WITH THIS RN TO AMBULATE A FULL LAP OF THE MED/SURG UNIT. PT BACK TO BED, SHE HAS NO OTHER CONCERNS OR REQUESTS AT THIS TIME.
--- NOTE | 2021-12-29 01:04 | NUR ---
PT UP TO THE BEDSIDE COMMODE WITH DWAIN NOLEN AT THIS TIME.
--- NOTE | 2021-12-29 04:32 | NUR ---
ROUNDING PT ALERT TO THIS RN AT BEDSIDE, PT REPORTS PAIN 8/10, NORCO TWO TABS PO PRN ADMINISTERED, PT ALSO RESTLESS ATIVAN 2MG IV PRN ADMINISTERED AT THIS TIME. PT REPORTS SHE WANTS TO NOT HAVE A FLUID RESTRICTION AND WANTS TO START A "REAL DIET" SHE IS PASSING COUPIOUS AMOUNTS OF FLATUS, SHE HAS ACTIVE BOWEL TONES.
--- NOTE | 2021-12-29 05:19 | NUR ---
PT UP TO BEDSIDE TO VOID, LABS DRAWN, PT REPORTS PAIN 9/10, 2MG IV DILAUDID PRN ADMINISTERED AT THIS TIME, PT PROVIDED ICE CHIPS. NO OTHER REQUESTS OR CONCERNS
--- NOTE | 2021-12-29 05:21 | NUR ---
PT HAS SLEPT WELL OVER SHIFT, WAKING TO VOID AND REPORT PAIN 8-10/10, NORCO PO PRN ADMINSITERED OFTEN AVAILABLE PER ORDER, ATIVAN ADMINISTERED TWICE AND IV DILAUDID ADMINISTERED TWICE OVER SHIFT FOR PAIN MANAGEMENT, PT CONTINUES TO REQUESTS FLUIDS TO DRINK OVER HER ALLOTMENT. ICE CHIP THEN GIVEN FOR COMFORT. SHE HAS BEEN COOPERATIVE WITH CARE, SHE WAS UP OUT OF BED TO AMBULATE AT MIDNIGHT ONE FULL LAP AROUND MED/SURG UNIT, STANDBY ASSIST STEADY GAIT, TOLERATED WELL, SHE HAS ACTIVE BOWEL TONES AND HAS COPIOUS AMOUNTS OF FLATUS. SHE IS WANTING HER DIET AND WATER ALLOTMENT TO BE INCREASED WILL NOTIFY ON DAYSHIFT OF HER REQUESTS.
--- NOTE | 2021-12-29 05:58 | NUR ---
PATIENT CALLED TO USE THE BEDSIDE COMMODE. SBA. patient is back in bed. no other needs at this time.
--- NOTE | 2021-12-29 06:39 | NUR ---
GIVEN UPDATE NOTE OFF OF INFO IN NURSE SUMMARY WELL PT PAIN MANAGEMENT MEDICATION NEEDS OVER SHIFT.
--- NOTE | 2021-12-29 07:30 | NUR ---
REPORT RECEIVED FROM MELANIA DIAZ. PT RESTING IN BED ON BACK, AWAKE AND ALERT. PT REPORTS 9/10 PAIN IN ABDOMEN AND 7/10 PAIN IN HER BACK. K-PAD IN PLACE. PLAN FOR PAIN MANAGEMENT MADE WITH PT. LEMON TONAWANDA SODA PROVIDED PER PT REQUEST. PT DENIES ADDITIONAL REQUESTS OR COMPLAINTS. CALL LIGHT WITHIN REACH. BED RAILS UP.
--- NOTE | 2021-12-29 08:23 | NUR ---
MORNING ASSESSMENT AND MEDICATION DUE. PT CONTINUES RESTING IN BED, AWAKE AND OREINTED TO ALL. PT REPORTS 9/10 PAIN IN BOTH ABDOMEN AND BACK. SEE MAR FOR MEDICAITON GIVEN. BOTH IV'S PAINFUL WITH FLUSHING AND REDNESS NOTED ALONG CATHETER TRACK, IV'S DC'D PER PROTOCOL, GAUZE AND COBAN APPLIED. NEW IV STARTED X2 PER PROTOCOL TO RIGHT FORARM AND RIGHT UPPER ARM. BRISK BLOOD RETURN NOTED IN BOTH SITES. IV FLUIDS AND ABX INFUSING INTO RIGHT UPPER ARM AND ELECTROLYTES INFUSING INTO RIGHT FORARM. PT REPORTS "A LITTLE" BURNING WITH POTASSIUM INFUSION, RATE SLOWED TO 75 ML/HR WHICH RESOLVES BURNING. PT CALM AND COOPERATIVE WITH CARES AT THIS TIME. LUNG SOUNDS CLEAR. MILD TACHYCARDIA HEARD WITH HR 90-110'S. HEART TONES REGULAR. BOWEL TONES ACTIVE. ABDOMEN SOFT, TENDER WITH PALPATION. MILD ABDOMINAL DISTENTION NOTED. PT REPORTS. ABDOMEN SEEMS "LESS" SWOLLEN NOW COMPARED TO AT ADMISSION. MILD GENERALIZED EDEMA NOTED TO BILATERAL ARMS. PT REPORTS HANDS DO NOT FEEL TIGHT. MIDLINE INCISION C/D/I WITH EDGES WELL APROXIMATED AND EFRA INTACT. SMALL AMOUNT OF OLD DRY RED DRAINAGE NOTED. NO NEW DRAINAGE NOTED. PT ENCOURGED TO GET UP TO CHAIR, PT DECLINES AT THIS TIME. PT AGREES THAT SHE WILL SIT ON THE EDGE OF BED FOR BREAKFAST. NO ADDITIONAL REQUESTS OR COMPLAINTS. CALL LIGHT WITHIN REACH. BED RAILS UP.
--- NOTE | 2021-12-29 09:54 | NUR ---
THIS RN TO ROOM TO CHECK ON PT. PT RESTING IN BED. REPORTS PAIN MEDICATION IS "NOT WORKING" PT ANXIOUS AND FIGITING IN BED. PT ALSO REPORTS SHE WANTS TO GET UP TO SHOWER AND IS NOTED TO MOVE EASILY ABOUT THE ROOM. PT REQUESTS MEDICATIONS, ATIVAN GIVEN. 5 MINUTES AFTER INFUSION PT STATES "OH THAT MEDICINE FEELS SO GOOD." PT CONTINUES TO REQUEST A SHOWER. IV'S SALINE LOCKED, ALCOHOL CAP APPLIED. PT UP TO RESTROOM TO SHOWER, INDEPENDANT. STEADY ON FEET. PT DEMONSTRATES USE OF CALL LIGHT. NO ADDITIONAL NEEDS AT THIS TIME. CALL LIGHT WITHIN REACH.
--- NOTE | 2021-12-29 10:32 | NUR ---
CALL PLACED TO PTS DAUGHTER, LILY, FOR UPDATE. NO ANSWER AT THIS TIME. NO MESSAGING SERVICE AVLIABLE.
--- NOTE | 2021-12-29 10:50 | NUR ---
PT FINISHED WITH SHOWER AND BACK TO BED. ROOM CLEANED. PT REPORTS 6/10 ABDOMINAL PAIN AND 7/10 LOWER BACK PAIN. PT STATES SHE CAN WAIT UNTIL NEXT PAIN MEDICATION IS DUE. PT CONCERNED ABOUT SCAR FORMATION, EDUCATION DONE WITH PT. PT VERBALIZES UNDERSTANDING AND STATES HER QUESTIONS HAVE BEEN ANSWERED. IV TO RIGHT FORARM ASSESSED, WNL. BRISK BLOOD RETURN NOTED. BOTH IV FLUIDS RESTARTED THROUGH THIS SITE. PT SITTING ON EDGE OF BED. NO ADDITONAL REQUESTS OR COMPLAINTS. CALL LIGHT WITHIN REACH.
--- NOTE | 2021-12-29 10:59 | NUR ---
LILY, PTS DAUGHTER, CALLED. LILY, UPDATED ON PTS STATUS AND PLAN OF CARE. LILY VERBALIZES UNDERSTANDING AND STATES HER QUESTIONS HAVE BEEN ANSWERED.
--- NOTE | 2021-12-29 12:44 | NUR ---
THIS RN TO ROOM TO CHECK ON PT. PT RESTING WITH EYES CLOSED, RESPIRATIONS EVEN AND UNLABORED. PT AWAKENS TO VOICE AND LIGHT TOUCH. PT REPORTS 10/10 ACHING PAIN IN ABDOMEN AND LOWER BACK. SEE MAR FOR MEDICATION GIVEN. PT DRINKING FLUIDS AND EATING PUDDING FOR LUNCH. NO ADDTIONAL REQUESTS OR COMPLAINTS. CALL LIGHT WITHIN REACH. BED RAILS UP.
--- NOTE | 2021-12-29 12:53 | NUR ---
PT CALL LIGHT ON. PT REQUESTS ASSISTANCE TO USE [employer]. STAND BY ASSIST UP TO RESTROOM. PT VOIDS 400ML CLEAR YELLOW URINE WITHOUT ISSUE. STAND BY ASSIST BACK TO BED. PT DENIES ADDITIONAL REQUESTS OR COMPLAINTS. CALL LIGHT WITHIN REACH. BED RAILS UP.
--- NOTE | 2021-12-29 13:51 | NUR ---
AFTERNOON ASSESSMENT DUE. PT RESTING IN BED IN SEMI GARIBAY POSITION WITH EYES CLOSED. RESPIRATIONS EVEN AND UNLABORED. PT DOES NOT AWAKEN TO MOVEMENT IN THE ROOM. PT AWAKENS TO VOICE AND LIGHT TOUCH. PT REPORTS 9/10 ACHING ABDOMINAL PAIN AND 9/10 ACHING LOWER BACK PAIN. ICE PACK PROVIDED, K-PAD IN PLACE. PT UPDATED ON MEDICATIONS AVALIABLE AND STATES SHE WILL "WAIT TILL 4 O'CLOCK. DRESSING TO RIGHT FORARM IV SITE LOOSE. DRESSING CHANGED PER PROTOCOL. PT ENCOURAGED TO AMBULATE. PT DECLINES STATING SHE WOULD LIKE TO REST AT THSI TIME AND WILL AMBULATE LATER. PT REMAINS ALERT AND ORIENTED ALTHOUGH DROWSY, FALLING BACK TO SLEEP BETWEEN CARES. HEART TONES REGULAR,MILD TACHYCARDIA CONTINUES. LUNG SOUNDS CLEAR. MID LINE INCISION WNL WITH EDGES WELL APROXIMATED. SMALL AMOUNTS OF OLD DRY DRANAGE REMAIN. EFRA INTACT. MILD ERYTHEMA NOTED AROUND EDGES OF INCISION. BOWEL TONES HEARD. ABOMDEN REMAINS SOFT AND PT REPORTS SWELLING IS "ABOUT THE SAME" YESTERDAY. PT DENIES NAUSEA. PT DECLINES SCD'S, EDUCATION DONE WITH PT. PT REPORTS SHE CONTINUES TO PASS GAS. PT REQUESTING "MORE ATIVAN." PT UPDATED ON WHEN NEXT DOSE OF ATIVAN IS DUE. STAND BY ASSIST UP TO RESTROOM. 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 NO ADDITIONAL NEEDS AT THIS TIME. CALL LIGHT ALFONSO MAE. FORM GRADER OPERATOR AT BEDSIDE.
--- NOTE | 2021-12-29 14:12 | PATH ---
[facility] [address], [place] [address] Signed SPECIMEN(S): A RIGHT COLON WITH CECUM SPECIMEN SOURCE: A. RIGHT COLON WITH CECUM CLINICAL HISTORY: SBO. FINAL PATHOLOGIC DIAGNOSIS: Right colon and terminal ileum, right hemicolectomy: - Dilated cecum with foreign body granulomas within the outer cecal wall, see comment. - Ileum with no histopathologic abnormality. - Viable surgical margins. - No evidence of malignancy. COMMENT: Polarizable and non-polarizable material is associated with the foreign body granulomas within the cecal outer muscularis propria and subserosa. This is favored to be secondary to previous abdominal surgeries (history of left hemicolectomy and appendectomy in 2020). NAL:smh:[id number] MICROSCOPIC EXAMINATION: Histologic sections of all submitted blocks are examined by light microscopy. These findings, together with the gross examination, support the pathologic diagnosis. GROSS DESCRIPTION: The specimen, labeled "TG," and designated on the requisition "right colon with cecum, SBO," is received in formalin and consists of a previously opened, 12.2 cm long, 3.7 up to 6.2 cm in diameter colonic segment with attached terminal ileum, and adipose tissue up to 5.2 cm wide. An appendix is not grossly identified. The distal colonic margin is a melgoza suture and is closed by a 4.7 cm long staple line which is removed, and the underlying tissue is inked blue. The proximal terminal ileum margin is closed by a 3.9 cm long staple line which is removed, and the underlying tissue is inked red. The colonic serosa is melgoza, glistening with focal areas of rare brown freckles and delicate melgoza adhesions. The cecal pouch is markedly dilated. Within the PATIENT NAME: DUSTIN BISHOP PATHOLOGY DATE OF : 67 REPORT #: [id number] PHYSICIAN: GIORGI PATHOLOGY PCP: KRISTOPHER LOVE PA-C REPORT IS CONFIDENTIAL AND NOT TO BE RELEASED WITHOUT AUTHORIZATION [facility] [address], [place] [address] Signed cecal pouch is a melgoza, grossly unremarkable possible appendiceal remanent. The colonic serosa is melgoza with focal areas of loss of folds and rare, focal, large outpouchings. The outpouchings are without gross evidence of perforation or an abscess and are 1.2 cm from the distal colonic margin. An additional discrete mass/lesion is not grossly identified. The terminal ileum is 3.7 cm long, 2.5 cm in diameter, and the terminal ileum serosa is melgoza, smooth, glistening. The terminal ileum mucosa is melgoza with usual folds and without a discrete mass/lesion. The attached adipose tissue is briefly palpated for lymph nodes and no lymph nodes are grossly identified. [employer] sections are submitted as follows: (A1) Possible appendiceal remanent (A2) Outpouching (A3) Colonic mucosa including perpendicular section of the distal colonic margin (A4) Ileocecal valve (A5) Terminal ileum including perpendicular section of the proximal terminal ileum margin AI (under the direct supervision of a pathologist) The Gross Description was prepared using a voice recognition system. The report was reviewed for accuracy; however, sound-alike word errors, addition and/or deletions may occur. If there is any question about this report, please contact Client Services. PERFORMING LABORATORY: The technical component was performed by [employer], [address] [place] [id number] (CLIA# [id number]). Professional interpretation was performed by [facility], [address] [place] [address], [place] [address] (CLIA# [id number]). Diagnostician: Ewelina Peterson MD Pathologist Electronically Signed 12/29/2021 Copies: PATIENT NAME: DUSTIN BISHOP PATHOLOGY DATE OF : 67 REPORT #: [id number] PHYSICIAN: GIORGI PATHOLOGY PCP: KRISTOPHER LOVE PA-C REPORT IS CONFIDENTIAL AND NOT TO BE RELEASED WITHOUT AUTHORIZATION [facility] [address] [place], [place] [address] Signed ~ PATIENT NAME: DUSTIN BISHOP PATHOLOGY DATE OF : 67 REPORT #: [id number] PHYSICIAN: GIORGI RAMIREZ PCP: KRISTOPHER LOVE PA-C REPORT IS CONFIDENTIAL AND NOT TO BE RELEASED WITHOUT AUTHORIZATION
--- NOTE | 2021-12-29 15:00 | NUR ---
Spoke with pt and she is walking in the gonzalez. I have attempted to see her several times and she has been sleeping. Rn has asked I not awaken as she is having issues with pain control. Per Tia, there are no changes since her last admission.
--- NOTE | 2021-12-29 15:23 | NUR ---
THIS RN TO ROOM TO CHECK ON PT. PT RESTING IN BED WITH EYES CLOSED. RESPIRATIONS EVEN AND UNLABORED. PT ALLOWS TO REST UNDESTURBED. BED RAILS UP. CALL LIGHT WITHIN REACH.
--- NOTE | 2021-12-29 16:15 | NUR ---
THIS RN TO ROOM TO CHECK ON PT. PT SITTING ON EDGE OF BED TALKING WITH FRIEND. PT LAUGHING AND JOAKING. WHEN THIS RN ENTERS ROOM PT BEGINS CRYING STATING SHE IS IN 22/10 PAIN IN ABDOMEN AND LOWER BACK. PT ANXIOUS AND FIGITING. ATAVAN GIVEN. PT REMAINS SITTING ON EDGE OF BED CRYING IN PAIN FOR 5-10 MINUTES AFTER WHICH PT REPORTS PAIN DROPS TO 7/10. FRESH ICE PACKS GIVEN. NORCO GIVEN. IV POTASSIUM INFUSION COMPLETE. IV FLUIDS CONTINUE. PT UP TO AMBULATE IN MEDINA WITH FRIEND X1 LAP IN MEDINA. PT STEADY ON FEET. NO ADDITIONAL REQUESTS OR COMPLAINTS.
--- NOTE | 2021-12-29 17:03 | NUR ---
PT RETURNED FROM HER WALK, RESTING IN BED AND CRYING OUT THAT PAIN IS 11/10. PT DESCRIBES PAIN SHARP, CRAMPING PAIN "LIKE YOU JUST TOOK IT AND TWISTED IT ALL UP" THAT STARTES IN MIDDLE ABDOMEN AND GOES "STRAIGHT THROUGH TO THE BACK. ADDTIONAL MEDICATION (DILAUDID) GIVEN. ABDOMINAL ASSESSMENT DONE. ABDOMEN REMAINS SOFT, MILD TO MODERATE DISTENTION NOTED. PT REPORTS ABDOMEN DOES NOT APPEAR MORE SWOLLEN TO HER. INCISION EDGES WELL APROXIMATED. NO NEW DRAINAGE NOTED. BOWEL TONES MINIMALLY ACTIVE, PT REPORTS SHE CONTINUES TO PASS GAS. ICE PACKS IN PLACE. PT CALMS AFTER MEDICATION ADMINISTRATION. NO ADDITONAL REQUESTS OR COMPLAINTS. CALL LIGHT WITHIN REACH. PTS FRIEND AT BEDSIDE.
--- NOTE | 2021-12-29 17:20 | NUR ---
THIS RN TO ROOM TO CHECK ON PT. PT LAUGHING AND TALKING WITH FRIENDS X2 THAT ARE IN ROOM. PT REPORTS PAIN IS "MUCH BETTER" NOW AT 5/10. PT ENCOURAGED TO GO VERY SLOWLY WITH DINNER, ONLY TAKING A FEW BITES TOLERATED. PT DENIES ADDITIONAL REQUESTS OR COMPLAINTS. CALL LIGHT WITHIN REACH. BED RAILS UP.
--- NOTE | 2021-12-29 18:10 | NUR ---
THIS RN TO ROOM TO CHECK ON PT. PT REQUESTS TO GET UP TO RESTROOM AND THEN UP TO AMBULATE. STAND BY ASSIST UP TO RESTROOM AND THEN TO AMBULATE IN MEDINA X1 LAP. PT BACK TO BED. PT REPORTS 9/10 PAIN IN HER ABDOMEN. PT REPORTS "I'LL BE OK" AND DECLINES ADDITIONAL PAIN MEDICAITON. PT RESTING IN BED. TEMPERATURE NOTED TO BE 99.0. I.S. USE DEMONSTRATED REACHING 1500-2000ML X5. TEMPERATURE REASSESSED, 97.7. NO ADDITIONAL REQUESTS OR COMPLAINTS. CALL LIGHT WITHIN REACH. BED RAILS UP.
--- NOTE | 2021-12-29 19:16 | NUR ---
PT CALL LIGHT ON. PT REPORTS 19/06 CRAMPING/STABBING PAIN IN CENTRAL ABDOMEN. ABDOMEN REMAINS UNCHANGED. ABOMDEN SOFT TO TOUCH ALTHOUGH GUARDED. PT ONLY ALLOWS MINIMAL PALPATION OF ABDOMEN. INCISION UNCHANGED. PT CRYING AND SCREAMING FOR MORE PAIN MEDICATIONS. DR. FERNANDEZ CALLED. DR FERNANDEZ STATES TO START PTS HOME DOES OF VENLAFAXINE, ORDER PLACED. ADDITIONAL DILAUDID GIVEN (SEE MAR). REPORT GIVEN TO MELANIA GRIMALDO, WHO IS ASSUMING CARE OF PT. PT RESTING IN BED. PT CALMS AFTER IV DILAUDID IS GIVEN AND STATES "OH THAT FEELS GOOD." CALL LIGHT WITHIN REACH. BED RAILS UP.
--- NOTE | 2021-12-29 19:30 | NUR ---
IN ROOM FOR REPORT, PT IS AT EDGE OF BED ROCKING IN PAIN. SHE GOT UP TO USE THE RESTROOM AND IS BACK IN BED. EDMUNDO VELÁZQUEZ WILL RETURN TO GIVE MORE DILAUDID. CALL LIGHT IS CLOSE.
--- NOTE | 2021-12-29 19:48 | NUR ---
PT REMAINS HISTERICAL REPORTING 10/10 PAIN. ADDITIONAL PAIN MEDICATION GIVEN TO TITRATE IV MEDICATION UP TO FULL DOSE. PT RESTING IN BED. NO ADDITIONAL NEEDS AT THIS TIME. CALL LIGHT WITHIN REACH. BED RAILS UP.
--- NOTE | 2021-12-29 20:33 | NUR ---
IN ROOM TO ADMINISTER 20MG PO NORCO PER PT REQUEST. SHE STATES HER PAIN REMAINS AT 10/10 EVEN AFTER HAVING IV DILAUDID ABOUT AN HOUR AGO. PROVIDED FRESH ICEWATER AND PT DENIES FURTHER NEEDS. CALL LIGHT IS CLOSE.
--- NOTE | 2021-12-29 22:50 | NUR ---
IN ROOM TO CHECK ON PT. SHE STATES SHE IS ANXIOUS. ADMINISTERED ATIVAN IV. PT IS NOW RESTING WITH EYES CLOSED, RR IS EVEN AND UNLABORED. PT HAS EYEMASK PULL UP JUST ABOVE EYES. SHE FELL ASLEEP DURING ASSESSMENT. IV IS INFUSING FINE. SCDS AND KPAD IN PLACE. PT TOLERATING FULL LIQUIDS. CALL LIGHT IS CLOSE.
--- NOTE | 2021-12-30 01:02 | NUR ---
IN ROOM TO ADMINISTER NORCO FOR 9/10 PAIN. INCISION REMAINS CDI WITH EFRA IN PLACE. PT DENIES ANY SOB/NAUSEA. PT UP TO BSC AND VOIDED 900MLS OR URINE. ICEWATER PROVIDED AND PT DENIES FURTHER NEEDS. CALL LIGHT IS CLOSE.
--- NOTE | 2021-12-30 02:45 | NUR ---
PT IS RESTING WITH EYES CLOSED, RR IS EVEN AND UNLABORED. IV IS INFUSING FINE AND CALL LIGHT IS CLOSE. RR IS 18.
--- NOTE | 2021-12-30 04:57 | NUR ---
PT NAUSEATED, PHLEGM SPIT UP, WRETCHING IN GARBAGE CAN, MEDICATED WITH 8 MG ZOFRAN. VS COMPLETED.
--- NOTE | 2021-12-30 06:55 | NUR ---
IN ROOM TO ADMINISTER PHENERGAN AFTER BEING NOTIFIED THAT PT IS DRY HEAVING. PT BECAME AGITATED STATING SHE WAS IN WRETCHING PAIN FOR 20 MINUTES. ALSO ADMINISTERED ATIVAN, PT STATES IT HELPS WITH HER PAIN. EDMUNDO VELÁZQUEZ ENTERED THE ROOM AND HELPED GIVE MEDICATIONS. PT WAS UP TO THE BSC AND HAD A LIQUID BM. PT STATES HER PAIN IS NOT CONTROLLED, BUT SHE SLEPT WELL THROUGH THE NIGHT WITH NORCO GIVEN Q4H. PT DENIES FURTHER NEEDS AT THIS TIME. CALL LIGHT IS CLOSE.
--- NOTE | 2021-12-30 07:08 | NUR ---
REPORT RECEIVED FROM MELANIA GRIMALDO. PT SITTING ON EDGE OF BED, NO RETCHING OR EMESIS NOTED. PT REPORTS 9.5/10 PAIN AND REQUESTS ADDITIONAL MEDICATION. PHENEGRAN AND ATAVAN GIVEN. PT REPORTS "IF THIS PAIN ISN'T IN CONTROL BY NOON I WANT TO TALK TO THE DOCTOR FACE TO FACE." MD CALLED AND MESSAGE LEFT TO UPDATE DR. FERNANDEZ. ADDITIONAL BROWN LOOSE BOWEL MOVEMENT NOTED. PT RESTING IN BED. NO ADDITIONAL REQUESTS OR COMPLAINTS. CALL LIGHT WITHIN REACH. BED RAILS UP.
--- NOTE | 2021-12-30 07:54 | NUR ---
MORNING ASSESSMENT AND MEDICATION DUE. PT RESTING IN BED, DROWSY. SLURRED SPEACH NOTED AND PT REPORTS "FEELING GOOD NOW." PT CONTINUES TO REPORT 8/10 PAIN IN ABDOMEN. PT STATES "IT'S OK RIGHT NOW, I CAN MAKE IT FOR A WHILE." PT REPORTS SHE WOULD LIKE TO CONTROL PAIN TO BE "LOWER THAN A 5" PT STATES THAT PAIN MEDICATION SHE IS TAKING AT HOME CONTROLS PAIN TO A 5. PT REPORTS AGIATION WITH CARES AND IS DEMANDING THAT MORE PAIN MEDICAITON BE GIVEN. PT REQUESTS MORPHINE AND DILAUDID "THE IV WAY" AND MENTIONS DOSES SHE WOULD LIKE. EDUCATION DONE WITH PT REGARDING PAIN MEDICATION SHE HAS AVALIBLE. PT VEBALIZES UNDERSTANDING AND CONTINUES TO STATE "I JUST WANT MORE BECUASE IT'S NOT ENOUGH." IV SITES ASSESSED, R UPPER ARM IV INFILTRATES WITH FLUSH. DC'D PER PROTOCOL, GAUZE AND COBAN APPLIED. RIGHT FORARM IV WILL NOT FLUSH. DC'D PER PROTOCOL, GAUZE AND COBAN APPLIED. NEW IV STARTED PER PROTOCOL TO LEFT FORARM. BRISK BLOOD RETURN NOTED. IV FLUIDS INFUSING THROUGH NEW IV SITE. PT ALERT AND OREINTED. EXTENSIVE EDUCATION DONE WITH PT REGARDING PAIN MEDICATION SIDE EFFECTS. RR NOTED TO BE 12 AND PT NOTED TO BE TALKING IN CIRCLES AND NOT ALWAYS TRACKING CONVERSATION. HEART TONES REGULAR, LUNG SOUNDS CLEAR. SWELLING TO BILATERAL ARMS APPEARS TO BE RESOLVED. PT CONTINUES TO DECLINE SCD'S. LUNG SOUNDS CLEAR. PT DEMONSTRATES USE OF I.S. REACHING 1200-1500ML X10. MID LINE INCISION C/D/I WITH STAPLE INTACT. SMALL AMOUNT OF OLD DRY DRAINAGE CONTINUES UNCHANGED. EDGES WELL APROXIMATED. VERY MINIMAL ERYTHEMA NOTED (IMPROVING). ABDOMEN SOFT AND MIDLY TENDER TO PALPATION. BOWEL TONES ACTIVE. MILD ABODOMEINAL DISTENTION NOTED. PT RESTING IN BED LAUGHING AND TELLING STORIES. PT WATCHING TV. NO ADDITIONAL REQUESTS OR COMPLAINTS. CALL LIGHT WITHIN REACH. BED RAILS UP.
--- NOTE | 2021-12-30 09:15 | NUR ---
THIS RN TO ROOM TO CHECK ON PT. PT TALKING ON PHONE, LAUGHING AND JOKING WITH FIRENDS. PT REPORTS "I'VE GOT 2 WEEKS TO STAY HERE BEFORE MY DAUGHTERS GRADUATION. i'M NOT LEAVING BEFORE THEN." PT REPORTS 9/10 PAIN IN ABDOMEN AND STATES "I WANT THOSE PAIN MEDICATIONS WHENEVER THEY ARE DUE, WAKE ME UP OR WHATEVER YOU HAVE TO DO TO GIVE THEM TO ME." PT STATES "I'LL GET A MUSICAL STRING MAKER I GUESS IF YOU DON'T GIVE ME MORE MEDICINE." SEE MAR FOR MEDICATION GIVEN. PT REPROTS NAUSEA CONTINUES TO BE RESOLVED. PT ALERT AND ORIENTED. RR=12. SLURRED GROGGY LIKE SPEACH CONTINUES. PT UPDATED THAT HER FRIEND RANJIT CALLED AND REQUESTED AN UPDATE. PT STATES OK TO UPDATE RANJIT. NO ADDITIONAL REQUESTS OR COMPLAINTS. CALL LIGHT WITHIN REACH. BED RAILS UP.
--- NOTE | 2021-12-30 09:35 | NUR ---
PTS DAUGHTER, LILY, CALLED FOR UPDATE. LILY UPDATED ON PT STATUS AND PLAN OF CARE. LILY VERBALIZES UNDERSTANDING AND STATES HER QUESTIONS HAVE BEEN ANSWERED. LILY STATES PT "SEEMS TO HAVE A LOT OF MEDICINES ON BOARD, HER TEXTS DON'T MAKES SENSE." LILY UPDATED ON PTS COMPLAINTS AND REQUESTS FOR PAIN MEDICATIONS. LILY STATES " SHE IS SO DEPENDANT ON THOSE NORCO'S AT HOME AND IT IS A [place]." LILY UPDATED ON PLAN FOR PAIN CONTROL. CALL FORWARDED TO PTS ROOM. PT TALKING WITH HER DAUGHTER ON THE PHONE. PT REQUESTS APPLE JUICE, 7-UP AND MORE WATER. PROVIDED. NO ADDITIONAL REQUESTS OR COMPALINTS. CALL LIGHT WITHIN REACH.
--- NOTE | 2021-12-30 10:20 | NUR ---
THIS RN TO ROOM TO CHECK ON PT. PT SITTING ON EDGE OF BED. IV TUBING TAGLED IN BLANKETS. IV DRESSING LOOSE. NEW IV DRESSING APPLIED PER PROTOCOL. PT REPORTS 8/10 ABOMDINAL PAIN. PT ADVISED THAT ADDTIONAL MEDICATION IS AVALIABLE. PT DECLINES ADDITIONAL MEDICATION AT THIS TIME STATING "NO, LETS TRY IT FOR A WHILE." PT DENIES NAUSEA. RR = 12. SLURRED SPEACH CONTINUES. PT DENIES ADDITIONAL REQUESTS OR COMPLAINTS. CALL LIGHT WITHIN REACH.
--- NOTE | 2021-12-30 11:45 | NUR ---
THIS RN TO ROOM TO CHECK ON PT. PT TALKING ON PHONE. TELLING STORIES AND LAUGHING. PTS RR=12. PT REPORTS 8/10 ABDOMINAL PAIN AND IMMIDIATLY RETURNS TO CONVERSATION ON PHONE. NO ADDITIONAL REQUESTS OR COMPLAINTS. CALL LIGHT WITHIN REACH. BED RAILS UP.
--- NOTE | 2021-12-30 13:02 | NUR ---
THIS RN TO ROOM TO CHECK ON PT. PT SITTING UP ON EDGE OF BED TALKING WITH FRIEND, RANJIT ABOUT PAIN CONTROL AND WHAT SHE FEELS IS MANAGABLE. PT REPORTS SHE WOULD LIKE TO GET OFF THE IV MEDICATIONS. PT REPORTS 10/10 PAIN IN ABDOMEN WHILE TALKING WITH FRIEND, LAUGHING AND TELLING STORIES. PT REPORTS 9/10 PAIN IN BACK. PT DECLINES ATAVAN AT THIS TIME SHE IS "TYRING NOT TO TAKE THE IV MEDICATION." HYDROCODONE/ACETAMINOPHEN AND VENLAFAXINE GIVEN. STAND BY ASSIST UP TO RESTROOM. PT VOIDS WITHOUT ISSUE. NO ADDTIONAL REQUESTS OR COMPLAINTS. PT REPORTS "I WANT THAT ATAVAN TO TAKE HOME, SOMETHING THAT CALMS ME DOWN." PT ADVISED TO DISCUSS THIS WITH HER PRIMARY CARE DOCTOR AND/OR DR. FERNANDEZ WHEN HE ROUNDS. PT HAS ADDITONAL LOOSE BROWN WITH SOME RED TINGE BOWEL MOVEMENT. PT PERFORMS SELF ELIER CARE. STAND BY ASSIST BACK TO BED. NO ADDITIONAL NEEDS AT THIS TIME. CALL LIGHT WITHIN REACH. BED RAILS UP.
--- NOTE | 2021-12-30 13:59 | NUR ---
AFTERNOON ASSESSMENT DUE. PT RESTING IN BED. CHEERFUL AND COOPERATIVE WITH CARES. PT REPORTS 8/10 PAIN ABDOMINAL AND LOWER BACK PAIN. PT DECLINES ADDITIONAL MEDICATION AT THIS TIME STATING "I'M OK RIGHT NOW. I'LL LET YOU KNOW." PT CITES VISIT WITH HER FIREND RANJIT AND THE "NEW PLAN." THEY MADE TOGETHER. PT CONTINUES TO REPORT SHE IS "TRYING TO NOT TAKE THE IV" MEDICATIONS. PT REPORTS SHE IS READY FOR A SHOWER. IV FLUSHED AND SALINE LOCKED. HEART TONES REMAIN REGULAR, MILD TACHYCARDIA AT TIMES CONTINUES. LUNG SOUNDS CLEAR. ABDOMEN REMAINS SOFT, TENDER TO TOUCH, MIDLINE ABDOMINAL INCISION C/D/I WITH EDGES WELL APROXIMATED AND EFRA INTACT. NO NEW DRAINAGE NOTED. MILD ERYTHYMA AND BRUSING NOTED AROUND INCISION. PT TALKS WITH FAMILY ON THE PHONE EXPLAINING HER NEW PLAN. PTS FRIENDS PLANING TO BRING HER FRO-YO FOR DINNER. PT UP FOR SHOWER, INDEPENDANT, NO ASSISTANCE NEEDED. NO ADDITIONAL NEEDS. CALL LIGHT WITHIN REACH. TICKET MACHINE OPERATOR AT BEDSIDE FOR LINEN CHANGE.
--- NOTE | 2021-12-30 14:14 | NUR ---
PT ALERT, ORIENTED AND AMBULATING IN HALLWAY WITH IV POLE IN TOW. PT HONEST ABOUT HOW SHE FEELS, SLOWLY MAKNG PROGRESS. GAVE EMCOURAGEMENT, WILL FOLLOW
--- NOTE | 2021-12-30 14:59 | NUR ---
PT FINISHED WITH SHOWER. PT UP IN ROOM AND STEADY ON FEET. PT BACK TO BED TO REST. IV FLUIDS RESTRATED. PT REPORTS 7/10 PAIN IN ABDOMEN AND LOWER BACK. PT DENIES NEED FOR ADDITIONAL PAIN MEDICATION AT THIS TIME. PTS DAUGHTER LILY, CALLED FOR UPDATE. LILY UPDATED ON PT STATUS AND PLAN OF CARE. LILY STATES HER QUESTIONS HAVE BEEN ANSWERED. CALL TRANSFERED TO PTS ROOM, PT TALKING WITH HER DAUGHTER ON THE PHONE. NO ADDITIONAL REQUESTS OR COPMLAINTS. CALL LIGHT WITHIN REACH.
--- NOTE | 2021-12-30 15:23 | NUR ---
PT POST OP DAY 5 FOR LISIS OF ADHESIONS AND COLECTOMY. PT UP WITH STAND BY ASSIST TO AMBULATE, FOR SHOWER, AND AROUND ROOM THIS SHIFT. APPITITE FOR FULL LIQUID DIET INCREASING THIS EVENING WITH PT MAKING MORE REQUESTS FOR DINNER. POOR PAIN AND NAUSEA CONTROL WITH PT VERY AGITATED THIS MORNING, MULTIPLE PRN MEDICATIONS GIVEN. PT IMPROVES THROUGHOUT THIS SHIFT. PT MADE A PLAN WITH HER DAUGHTER AND FRIEND REGARDING HER PAIN CONTROL AND MEDICATIONS SHE WOULD LIKE. PT REQUESTING MUCH LESS MEDICATION THIS AFTERNOON AND APPEARS COMFORTABLE, HAPPY, AND COOPERATIVE WITH CARES. NEW IV STARTED TO LEFT FORARM. MIDLINE INCISION C/D/I WITH EDGES WELL APROXIMATED, NO NEW DRAINAGE NOTED, AND MILD ERYTHMEA NOTED AROUND EDGES. BRUSIES TO ABDOMEN NOTED. EFRA REMAIN INTACT. ABOMDEN SOFT THROUGHOUT SHIFT WITH BOWEL TONES HEARD. MULTIPLE LOOSE BOWEL MOVEMENTS NOTED THIS SHIFT. PT VOIDING QUANTITY SUFFICIENT. PT USES CALL LIGHT AND MAKES NEEDS KNOWN.
--- NOTE | 2021-12-30 15:55 | NUR ---
THIS RN TO ROOM TO CHECK ON PT. PT CONTINUES TO REPORTS PAIN IS UNDER CONTROL. PT REQUESTS PUDDING "BOTH CHOCOLATE AND VANILLA" STATING SHE IS HUNGRY. PUDDING PROVIDED. PT ENCOURAGED TO GO SLOWLY WITH PO INTAKE. PT VERBALIZES UNDERSTANDING. NO ADDITIONAL REQUESTS OR COMPLAINTS. CALL LIGHT WITHIN REACH. BED RAILS UP.
--- NOTE | 2021-12-30 16:50 | NUR ---
THIS RN TO ROOM TO CHECK ON PT. PT LAUGHING AND TALKING WITH HER SISTER. PT REPORTS 7/10 ABDOMINAL PAIN AND 8/10 BACK PAIN. PRN PO MEDICATION GIVEN (SEE MAR). PT CONTINUES TO DECLINE IV MEDICATIONS. PT ORDERING FRO YO WITH HER SISTER. PT EXCITED ABOUT PLAN OF CARE. PT DENIES NASUEA. 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 PT DECLINES IV MEDCATIONS AT THIS TIME, STATES SHE WILL CONSIDER MEDICATIONS PRIOR TO SHIFT CHANGE TO HELP HER "STAY CALM." NO ADDITIONAL REQUESTS OR COMPLAINTS. CALL LIGHT WITHIN REACH.
--- NOTE | 2021-12-30 18:20 | NUR ---
THIS RN TO ROOM TO CHECK ON PT. PT CHEERFUL AND COOPERATIVE WITH CARES. PT REPORTS 7/10 PAIN IN ABDOMEN AND 9/10 PAIN IN LOWER BACK. PT REQUESTS TO HAVE HER FLEXERIL "FOR TONIGHT BEFORE BED." PT DENIES NEED FOR ADDITIONAL PAIN MEDICATION AT THIS TIME STATING HER PAIN IS WELL CONTROLED AT THIS TIME. DR FERNANDEZ CALLED AND ORDERS GIVEN FOR FLEXERIL THIS EVENING, REPEAT BACK PERFORMED, ORDERS ENTERED. PT UPDATED ON PLAN OF CARE AND STATES "OH GREAT! THIS IS ALL GOING SO WELL." PT DENIES ADDITIONAL REQUESTS OR COMPLAINTS. CALL LIGHT WITHIN REACH. BED RAILS UP.
--- NOTE | 2021-12-30 18:59 | NUR ---
PT CALL LIGHT ON . PT REQUETS A NEW IV STATING "THIS ONE IS BEEPING TOO MUCH." LEFT FORARM IV FLUSHED AND SALINE LOCKED, BRISK BLOOD RETURN NOTED. NEW IV STARTED PER PROTOCOL AND PT REQUEST. BRISK BLOOD RETURN NOTED WITH IV START. IV FLUIDS INFUSING THROUGH NEW IV TO RIGHT FORARM. PT CONTINUES TO REPORT PAIN IS WELL CONTROLED. PT UP TO AMBULATE IN MEDINA WITH HER SISTER. NO ADDITIONAL REQUESTS OR COMPLAINTS. CALL LIGHT WITHIN REACH.
--- NOTE | 2021-12-30 19:25 | NUR ---
SHIFT REPORT RECEIVED FROM NAVICTELIZABETH WYATT AT BEDSIDE. pt AWAKE AND LAUGHING IN ROOM, EATING FROZEN YOGURT WITH FAMILY IN ROOM. NO S/SX OF DISTRESS NOTED. MIDLINE INCISION WNL, EFRA INTACT. BOARD UPDATED AND CALL LIGHT IN REACH. DISCUSSED POC WITH pt FOR SHIFT, pt AGREES TO POC. WILL MONITOR.
--- NOTE | 2021-12-30 21:10 | NUR ---
ASSESSMENT COMPLETE, pt AWAKE AND RESTING IN BED. REPORTS 10/10 PAIN, pt TALKING WITH FAMILY IN ROOM. IV SITES X2 WNL, FLUIDS INFUSING DIRECTED. pt UNABLE TO HAVE PO PAIN MEDICATION SHE HAS REACHED HER DAILY INTAKE, SEE EMAR. DISCUSSED WITH KIERAN GRIMALDO AND OFFERED pt X1 DOSE OF IV PAIN MEDICATION TO HELP HOLD HER OFF UNTIL NEXT AVAILABLE PO DOSE IS AVAILABLE, pt INITAILLY WORRIED THIS COULD DELAY HER DISCHARGE SHE HOPES TO GET DISCHARGED T[place]OROW, pt EDUCATED THAT THIS IS JUST TO HELP WITH PAIN UNTIL HER PO IS AVAILABLE. WILL MONITOR. K-PAD IN PLACE. VSS AND I&O'S COMPLETE. pt DENIES NAUSEA, MIDLINE INCISION WNL, EFRA NOTED. MINIMAL REDDNESS NOTED, BUT IMPROVED PER SHIFT REPORT. WILL MONITOR. CALL LIGHT IN REACH.
--- NOTE | 2021-12-30 21:10 | NUR ---
IN TO GET VITALS, I&Os DONE, PT PROVIDED WARM BLANKETS, NO FURTHER NEEDS AT THIS TIME, TRASH EMPTIED,
--- NOTE | 2021-12-30 23:00 | NUR ---
IN ROOM TO ASSESS K-PAD, pt RESTING QUIETLY IN BED. EYES CLOSED. RR EVEN AND UNLABORED, NO DISTRESS NOTED. CALL LIGHT IN REACH.
--- NOTE | 2021-12-31 01:15 | NUR ---
WOKE PT TO ASSESS PAIN. SHE STATES HER PAIN IS A 8/10. ADMINISTERED 2O MG PO NORCO. SHE DENIES FURTHER NEEDS. CALL LIGHT IS CLOSE. PT UP TO BSC.
--- NOTE | 2021-12-31 01:54 | NUR ---
pt RESTING IN BED WITH EYES CLOSED, ON RA. RR EVEN AND UNLABORED, NO DISTRESS NOTED. IV SITE WNL, FLUIDS INFUSING DIRECTED. CALL LIGHT IN REACH.
--- NOTE | 2021-12-31 03:37 | NUR ---
pt resting in bed, eyes closed. rr even and unlabored. no distress noted. new fluid to k-pad in place. iv site wnl, fluids continue to infuse as directed. call light in reach.
--- NOTE | 2021-12-31 04:57 | NUR ---
pt CONTINUES TO REST IN BED, EAR PLUGS IN PLACE. pt ON RA, RR EVEN AND UNLABORED, NO DISTRESS NOTED. NO S/SX OF PAIN NOTED EITHER AT THIS TIME, CALL LIGHT IN REACH. IV SITE WNL, FLUIDS INFUSING DIRECTED. K-PAD ALSO REMAINS IN PLACE.
--- NOTE | 2021-12-31 05:28 | NUR ---
IN ROOM TO ADMINISTER 2OMG NORCO FOR 8/10 PAIN. ALSO NEW BAG OF D5LR IS INFUSING. PT DENIES FURTHER NEEDS AT THIS TIME. CALL LIGHT IS CLOSE.
--- NOTE | 2021-12-31 06:12 | NUR ---
assessment complete, no acute changes. pt reports 7/10 pain, pt found in bed with eyes closed and resting. on ra, rr even and unlabored. no changes to abd incision, bianca remain noted and site well approximated. deneis nausea. iv site wnl, fluids infusing as directed. water for k-pad refilled. call light in reach. no further needs.
--- NOTE | 2021-12-31 06:19 | NUR ---
DR FERNANDEZ IN ROOM WITH pt, UPDATED ON pt's NEED FOR IV PAIN MEDICATION X1 FOR SHIFT.
--- NOTE | 2021-12-31 07:20 | NUR ---
REPORT RECEIVED FROM MELANIA MCKEON. PT REPROTS SHE IS READY FOR DISCHARGE. SOFT DIET BREAKFAST ORDER PLACED FOR PT. MORNING MEDICAITONS GIVEN. PT REPORTS 6/10 PAIN IN ABDOMEN AND LOWER BACK WHICH SHE STATES IS WELL CONTROLED. IV'S DC'D PER PROTOCOL. TIPS INTACT, GAUZE AND COBAN APPLIED. PT UP TO SHOWER, INDEPENDANT, NO ASSISTANC NEEDED. PT DENIES NAUSEA. NO ADDITIONAL NEEDS AT THIS TIME. CALL LIGHT WITHIN REACH. PTS SISTER AT BEDSIDE.
[2021-12-31] MEDS ORDERED: HYDROCODON-ACE1 EAC8 PO (07:30)
--- NOTE | 2021-12-31 08:20 | DS ---
[facility] [address], [place] [address] Signed ADMISSION DATE: 12/25/2021 DISCHARGE DATE: 12/31/2021 FINAL DIAGNOSES: 1. Small bowel obstruction from adhesions. 2. Internal hernia. PROCEDURES: 1. Lysis of adhesions. 2. Right colectomy. 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 She developed strictures in the distal transverse colon and splenic flexure. She also has known symptomatic diverticular disease. In early July, she required the entire left colon and sigmoid colon to be removed with the help of Dr. Mccallum. The right colon had to be rotated so the distal transverse colon could reach the rectum. Unfortunately, she came back with mid abdominal pain and vomiting and some diarrhea. The CT scan showed the small bowel obstruction, but also a stricture in her mid right colon. I had been asked to see her as a general surgeon on-call. HOSPITAL COURSE: I met with Fannie in the emergency room and she was actually fairly sick. We took her to the operating room and we lysed her dense adhesions that were heavy like strings that cause the small bowel to twist. Unfortunately, she had developed an internal hernia on the right side that required a right colectomy in order to resolve and bring the small bowel back under in its usual position. The small intestine was sewn back to the proximal transverse colon [id number]. She has done well both intraop and postop. Her chronic pain issues have been challenging. Apparently, she is taking 15 mg of [place] 6 times a day. She is hoping to have back surgery at some point here in the near future. Nevertheless, her GI function has returned and she is on a full liquid diet. Her sister drove down all the way from [place], [place] to be with her. That is over 4 hours away. She is going to be going back home with her sister for at least a couple of weeks until she recovers. She is now having lots of flatus. She has had several bowel movements and her abdomen is only mildly distended but otherwise soft and nontender. She has no sense of nausea whatsoever and she feels safe going home with her sister today. 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 DISCHARGE PLANS AND MEDICATIONS: Fannie will be discharged home with [place] 10/325 1 to 2 tablets p.o. q.4 hours p.r.n. for Electronically Signed By: GUS FERNANDEZ MD 12/31/21 0820 PATIENT NAME: FANNIE BISHOP DISCHARGE SUMMARY DATE OF : 67 REPORT #: [id number] PHYSICIAN: GUS FERNANDEZ MD PCP: KRISTOPHER LOVE PA-C REPORT IS CONFIDENTIAL AND NOT TO BE RELEASED WITHOUT AUTHORIZATION [address] [address] Signed severe postoperative pain. We will dispense 30 tablets with no refills. After that, she will go back on her usual regimen. She will also continue her usual medications including the ibuprofen, Tylenol, hydroxyzine, Flexeril, multivitamin, magnesium, Lunesta, Nexium, Nufola and . She also has a little phlebitis around the IV site near her left wrist on the medial side. She can alternate heat and ice and use some ibuprofen for a few days and that will resolve in time. We are going to remove one-half of her bianca today. Her sister is familiar with the medical records supervisor up in [place], [place] and she can remove the rest of bianca days. I have asked her to continue her activities of daily living including walking up and down stairs and showering and bathing as usual. She should not do any heavy pushing, pulling, or lifting over about 20 pounds. She will follow a soft diet for 6 to 8 weeks before she resumes heavy fiber. When she returns back to [facility] here in a couple weeks, she is going to stop by my office for followup. I did review the pathology report with her and of course it is negative/benign. Fannie and her sister have expressed understanding and agreed with the above plan. Gus Fernandez MD ALB/MODL /[id number] cc: MD Gus Fabian MD Dr. Jackie Brown Copies: SAMY MCCALLUM MD,GSU Bonds MD ~ Electronically Signed By: GUS FERNANDEZ MD 12/31/21 0820 PATIENT NAME: FANNIE BISHOP DISCHARGE SUMMARY DATE OF : 67 REPORT #: [id number] PHYSICIAN: GUS FERNANDEZ MD PCP: KRISTOPHER LOVE PA-C REPORT IS CONFIDENTIAL AND NOT TO BE RELEASED WITHOUT AUTHORIZATION
--- NOTE | 2021-12-31 08:50 | NUR ---
MORNING ASSESSMENT DUE. PT SITTING ON EDGE OF BED EATING BREAKFAST. PT REPORST SHE HAS NOT YET SHOWERED SHE WAS "GETTING READY TO GO HOME." PT REPORTS 9/10 PAIN IN ABDOMEN AND BACK AND REQUESTS PAIN MEDICATIONS. SEE MAR FOR MEDICATION GIVEN. PT REMAINS ALERT AND ORIENTED AND COOPERATIVE WITH CARES. HEART TONES REGULAR. LUNG SOUNDS CLEAR. PT REPORTS OCCATIONAL ANXIETY WITH GOING HOME AND "NOT HAVING ENOUGH PAIN MEDICAITON. PT ADVANED TO SOFT DIET AND ATE 100% OF A FULL BREAKFAST. PT DENIES NASUEA. BOWEL TONES HEARD, ABDOMEN SOFT. MILDY TENDER WITH PALPATION. MIDLINE INCISION C/D/I WITH EDGES WELL APROXIMATED, EVERY OTHER STAPLE REMOVED PER DR. FERNANDEZ'S ORDER. EDUATION DONE WITH PT AND PTS SISTER FOR REMOVING REMAINING EFRA AFTER 3-[address] TORREZ INSTRUCTIONS[address] PTS SISTER ABLE TO DEMONSTRATE UNDERSTANDING OF STAPLE REMOVAL. NO NEW DRAINAGE NOTED, SMALL AMOUNTS OF OLD DRY DRAINAGE NOTED. VERY MIMAL ERYTHMA NOTED, MOSTLY AT STAPLE INCERTION SITES. PT REPORTS "ITCHY FEELIGN" WITH STAPLE REMOVAL. DISCHARGE INSTRUCTIONS REVEIWED WITH PT AND PTS SISTER IN DETAIL INCLUDING STAPLE REMOVAL, PAIN MEDICATION USE, FOLLOW UP, WOUND CARE AND ACTIVITY RESTRICITONS. PT AND SISTER VERBALIZE UNDERSTANDING OF ALL OF THE ABOVE AND STATE ALL THEIR QUESTIONS HAVE BEEN ANSWERED. PHARMACIST TO BEDSIDE TO REVIEW MEDICATIONS WITH PT. PT VERBALIZES UNDERSTANDING OF MEDICATIONS AND STATES HER QUESTIONS HAVE BEEN ANSWERED. PT UP TO SHOWER AND DRESS, NO ASSISTANCE NEEDED. AWAITING CALL FROM PT WHEN SHE IS READY FOR A RIDE OUT. CALL LIGHT WITHIN REACH.
--- NOTE | 2021-12-31 10:15 | NUR ---
PT FINISHED WITH SHOWER, DRESSED AND READY TO GO HOME. PT REPORTS SHE IS MISSING A RING THAT WAS REMOVED DURING SURGERY. SURGERY DEPARTEMENT CALLED AND STATES RING WAS PLACED IN A "SPECIMEN BAG" AND PLACED WITH PTS BELONGINGS. NO SPECIMEN BAG FOUND IN ROOM OR WITH PTS BELONGINGS. CCU CALLED AND STATES SPECIMEN BAG WAS PLACED IN PTS BEDSIDE TABLE DRAWER. DRAWERS EMPTY AT THIS TIME. TUBE KNITTER, CONCRETE TRUCK DRIVER, AND ACCOUNT EXECUTIVE [employer] CALLED. EACH VISITS WITH PT IN ROOM. PT INFORMED THAT SHE WILL BE CONTACTED BY THE HOSPITAL WHEN/IF RING IS FOUND AND FOR ADDITIONAL INFORMATION. PT REPORTS SHE IS "FINE" WITH THESE ACTIONS AND REPORTS SHE IS READY FOR DISCHARGE. PT TRANSFERES SELF TO WHEELCHAIR. PT WHEELED FROM MED/SURG WITH SISTER. NO ADDITIONAL REQUESTS OR CONCERNS.
--- NOTE | 2021-12-31 11:17 | NUR ---
KANIKA FROM [facility] CALLED TO VERIFY NARCOTIC PRESCRIPTION. DISCUSSED WITH DR FERNANDEZ ON OTHER LINE AND VERIFIED HE WANTS PAIN MEDICAITONS FILLED AND PT WILL RESUME HOME PAIN MEDICATIONS. PHARMACIST NOTIFIED.
== END 2021-12-31 10:40 | disposition home or self-care (01) | DRG 331 ==
LOC: ED 00:46 → MS 04:09 → CCU 04:09 → MS 12-26 13:45
PROVIDERS: ADMIT Colon & Rectal Surgery; ATTEND Colon & Rectal Surgery
PROC: 0DNW0ZZ Release Peritoneum, Open Approach (ICD-10-PCS; 2021-12-25)
PROC: 0DTF0ZZ Resection of Right Large Intestine, Open Approach (ICD-10-PCS; principal; 2021-12-25 04:17)
DX: K56.50 Intestinal adhesions [bands], unspecified as to partial versus complete obstruction (principal); Z20.822 Contact with and (suspected) exposure to COVID-19; E87.6 Hypokalemia; E83.39 Other disorders of phosphorus metabolism; E83.42 Hypomagnesemia; M54.9 Dorsalgia, unspecified; G89.29 Other chronic pain; I10 Essential (primary) hypertension; F17.210 Nicotine dependence, cigarettes, uncomplicated; Z90.710 Acquired absence of both cervix and uterus; Z90.49 Acquired absence of other specified parts of digestive tract; Z90.89 Acquired absence of other organs; Z98.890 Other specified postprocedural states; Z88.1 Allergy status to other antibiotic agents; Z88.8 Allergy status to other drugs, medicaments and biological substances; Z79.899 Other long term (current) drug therapy
CPT/HCPCS: 00811; 36415; 51702; 71045; 74018; 74177; 76942; 80048; 80053; 83605; 83690; 83735; 84100; 84134; 85025; 87502; 93005; 93010; 94762; 99285-25; A9270; C9113; C9803; J0131; J0610; J0692; J1100; J1170; J1644; J1650; J1885; J2001; J2060; J2250; J2405; J2550; J2704; J3010; J3475; J3480; J7030; J7060; J7121; Q9967; U0003